=== PATIENT | female | born 1960 | race Caucasian/White ===

== ENCOUNTER 2016-12-03 13:32 | Emergency (ER) | payer OTHER ==
[2016-12-03] MEDS ORDERED: CEPHALEXIN MONOHYDRATE 500 MG CAPSULE (UD) PO ONE (14:19)
--- NOTE | 2016-12-03 14:19 | PDOC ---
History of Present Illness - General Chief Complaint: Injury Stated Complaint: LEFT ELBOW PAIN S/P FALL Time Seen by Provider: 12/03/16 13:51 - History of Present Illness Initial Comments: 12/03/16 14:32 Chief complaint: Pain left forearm History of present illness: Patient has noticed pain, redness, and swelling of the left forearm, dorsal aspect, just distal to the elbow, for several days. She fell approximately 2 weeks ago, but it does not appear that this is temporally related to the fall. Review of systems: No distal numbness tingling pain or weakness of the wrist or hand. No fever/chills, recent URI symptoms, sore throat, cough, chest pain, shortness of breath, abdominal pain, nausea, vomiting, diarrhea Past medical history: Multiple sclerosis, wheelchair-bound. Stable lately. No progression of symptoms. Social/family history reviewed and noncontributory Physical exam: Alert and oriented 3, no acute distress, cheerful and cooperative Afebrile, vital signs normal HEENT clear Neck supple without bruit mass or nodes Lungs clear CV regular without murmur rub or gallop Abdomen benign Extremities: There is an area of erythema, induration, and mild tenderness of the left forearm, extensor aspect, just distal to the elbow. There is no deformity. There is full extension and flexion of the elbow on the elbow joint does not appear to be involved. Pulses are full and symmetric. No distal sensory or motor deficits. No skin injury is apparent, i.e. no abrasion laceration or puncture distal to the involved region. Impression: Probable early cellulitis. No evidence of trauma, skin injury or skin lesions, or broken bone Plan: Rest warm soaks elevation and antibiotics. Close follow-up 24 hours. Past History - Past Medical History Allergies/Adverse Reactions: Allergies Allergy/AdvReac Type Severity Reaction Status Date / Time No Known Allergies Allergy Verified 12/03/16 14:22 Home Medications: Ambulatory Orders Ruxolitinib Phosphate [Jakafi] 10 mg PO BID 09/04/14 Tramadol HCl 50 - 100 mg PO BID PRN 09/04/14 Cephalexin Monohydrate [Keflex] 500 mg PO Q6H #30 capsule 12/03/16 Anemia: Yes (MYELOID METEPLASIA) Asthma: No Cancer: No Cardiac Disorders: No CVA: No COPD: No CHF: No Dementia: No Diabetes: No GI Disorders: No Disorders: Yes (Incontinence/urosepsis) HTN: No Hypercholesterolemia: No Liver Disease: No Suicide Attempt (Hx): No Seizures: No Thyroid Disease: No - Surgical History Abdominal Surgery: No Appendectomy: No Cardiac Surgery: No Cholecystectomy: No Lung Surgery: No Neurologic Surgery: No Orthopedic Surgery: Yes (left ankle fracture) - Immunization History Td Vaccination: Yes Immunization Up to Date: (UNKNOWN) - Psycho/Social/Smoking Cessation Hx Anxiety: No Suicidal Ideation: No Smoking Status: No Smoking History: Unknown if ever smoked Have you smoked in the past 12 months: No Number of Cigarettes Smoked Daily: 0 Hx Alcohol Use: No Drug/Substance Use Hx: No Substance Use Type: None Hx Substance Use Treatment: No *DC/Admit/Observation/Transfer Diagnosis at time of Disposition: Cellulitis of left upper limb - Discharge Dispostion Disposition: HOME Condition at time of disposition: Stable Admit: No - Prescriptions Prescriptions: Cephalexin Monohydrate [Keflex] 500 mg PO Q6H #30 capsule - Referrals Referrals: Bola Willis MD [Staff Physician] - 1 week - Patient Instructions Printed Discharge Instructions: DI for Cellulitis -- Adult Additional Instructions: Rest and elevate the arm. Use the arm is little as possible. Maintain the sling for elevation Return to ER 24 hours for recheck of the skin, to ensure response to antibiotic
[2016-12-03 14:27] VITALS: BP 119/67; PULSE 96; TEMP 987.6; BMI 22.3
[2016-12-03] MEDS ORDERED: CEPHALEXIN MONOHYDRATE 500 MG CAPSULE (UD) ONE (14:42)
== END 2016-12-03 15:03 | disposition home or self-care (01) ==
LOC: FER 13:32
DX: L03.114 Cellulitis of left upper limb (principal); D73.1 Hypersplenism
CPT/HCPCS: 99282-25

== ENCOUNTER 2017-06-04 20:04 | Emergency (ER) | payer OTHER ==
--- NOTE | 2017-06-04 20:09 | PDOC ---
History of Present Illness - General History Source: Patient Exam Limitations: No Limitations - History of Present Illness Initial Comments: 06/04/17 21:01 The patient is a 57 year old female, with a significant past medical history of myeloid metaplasia, MS, hypothyroid, AFib, urinary incontinence/urosepsis, and anxiety, who presents to the emergency department s/p noticing a bruise to her right arm earlier this afternoon. The patient reports she first noticed her bruise at approximately 17:30 today. Patient reports she typically bruises easily, but states this bruise is different because of its size and she noted a red bump in the affected area. Patient reports applying ice, and experiencing a burning sensation afterwards. She denies any pain or discharge to the area. Patient denies any history of blood clots or recent travel. Patient reports she typically has low platelet counts. She reports getting bloodwork done every 3 weeks, and occasionally bruising, but states the her last blood work was done 3 weeks ago. Patient reports she is typically able to ambulate with a walker and is not any less active than usual. She denies any chest pain, shortness of breath, diaphoresis or palpitations. She denies any fever, chills, nausea or vomiting. PAST MEDICAL HISTORY: no significant history PAST SURGICAL HISTORY: no significant history FAMILY HISTORY: no pertinent history SOCIAL HISTORY: Pt lives with family and is employed. MEDICATIONS: reviewed ALLERGIES: As per nursing notes General: No fevers or chills, no weakness, no weight loss HEENT: No change in vision. No sore throat,. No ear pain CardioVascular: No chest pain or shortness of breath Respiratory: No cough, or wheezing. Gastrointestinal: No nausea, vomiting, diarrhea or constipation, No rectal bleeding Genitourinary: No dysuria, hematuria, or frequency Musculoskeletal: No joint or muscle pain or swelling Neurologic: No headache, vertigo, dizziness or loss of consciousness Psychiatric: No depression Skin: Yes easy bruising, large bruise to right upper arm with a red bump. No rashes. Endocrine: no increased thirst or abnormal weight change Allergic: no skin or latex allergy All other systems reviewed and normal GENERAL: The patient is awake, alert, and fully oriented, in no acute distress. HEAD: Normal with no signs of trauma. EYES: Pupils equal, round and reactive to light, extraocular movements intact, sclera anicteric, conjunctiva clear. EXTREMITIES: Normal range of motion, no edema. No bony tenderness on palpation. VASCULAR: DP/PT pulses 2+ and symmetric. NEUROLOGICAL: Normal speech, normal gait. Neurovascularly intact distally. PSYCH: Normal mood, normal affect. SKIN: Multiple bruises in the bilateral upper and lower extremities. Large bruise medially in the right upper forearm, no bony tenderness on palpation, and bruise does not involve elbow joint. Warm, Dry, normal turgor, no rashes or lesions noted. <Sonam Quintero - Last Filed: 06/04/17 21:01> - General History Source: Patient Exam Limitations: No Limitations - History of Present Illness Initial Comments: 06/04/17 21:43 A portion of this note was documented by scribe services under my direction. I have reviewed the details of the note, within reason, and agree with the documentation. The case summary and management plan written by me. Assessment and plan: This is a 57-year-old female who comes in with a contusion that was spontaneous to her right upper arm. Patient has a history of mild fibrosis and has multiple bruises and contusions on both her upper and lower extremities. A Wilberto wrap was gently applied to the contusion to help contain it and given some gentle compression. Patient was told to continue to ice it and will follow-up with her primary care doctor tomorrow. <Denice Cox I - Last Filed: 06/04/17 21:45> - General Chief Complaint: Wound Stated Complaint: BRUISE TO RT ARM Time Seen by Provider: 06/04/17 20:08 Past History <Sonam Quintero - Last Filed: 06/04/17 21:01> - Past Medical History Anemia: Yes (MYELOID METEPLASIA) Asthma: No Cancer: No Cardiac Disorders: No CVA: No COPD: No CHF: No Dementia: No Diabetes: No GI Disorders: No Disorders: Yes (Incontinence/urosepsis) HTN: No Hypercholesterolemia: No Liver Disease: No Psychiatric Problems: Yes (ANXIETY) Seizures: No Thyroid Disease: No - Surgical History Abdominal Surgery: No Appendectomy: No Cardiac Surgery: No Cholecystectomy: No Lung Surgery: No Neurologic Surgery: No Orthopedic Surgery: Yes (left ankle fracture) - Immunization History Td Vaccination: Yes Immunization Up to Date: (UNKNOWN) - Suicide/Smoking/Psychosocial Hx Smoking Status: No Smoking History: Unknown if ever smoked Have you smoked in the past 12 months: No Number of Cigarettes Smoked Daily: 0 Hx Alcohol Use: No Drug/Substance Use Hx: No Substance Use Type: None Hx Substance Use Treatment: No <Denice Cox I - Last Filed: 06/04/17 21:45> - Past Medical History Allergies/Adverse Reactions: Allergies Allergy/AdvReac Type Severity Reaction Status Date / Time No Known Allergies Allergy Verified 12/03/16 14:22 Home Medications: Ambulatory Orders Ruxolitinib Phosphate [Jakafi] 10 mg PO BID 09/04/14 Tramadol HCl 50 - 100 mg PO BID PRN 09/04/14 Allopurinol 300 mg PO DAILY 12/03/16 Alprazolam 0.5 mg PO QID PRN 12/03/16 Baclofen 5 mg PO DAILY 12/03/16 Cephalexin Monohydrate [Keflex -] 500 mg PO Q6H #30 capsule 12/03/16 Levothyroxine [Synthroid -] 75 mcg PO DAILY 12/03/16 Prednisone 10 mg PO ASDIR 12/03/16 Tramadol HCl 50 mg PO Q4HWA 12/03/16 *Physical Exam - Vital Signs Last Vital Signs Temp Pulse Resp BP Pulse Ox 97.5 F L 88 20 124/78 96 06/04/17 20:08 06/04/17 20:08 06/04/17 20:08 06/04/17 20:08 06/04/17 20:08 <Sonam Quintero - Last Filed: 06/04/17 21:01> *DC/Admit/Observation/Transfer - Attestations Scribe Attestion: 06/04/17 21:02 Documentation prepared by Sonam Quintero, acting as biomedical equipment support specialist for Denice Cox MD. <Sonam Quintero - Last Filed: 06/04/17 21:01> <Denice Cox I - Last Filed: 06/04/17 21:45> Diagnosis at time of Disposition: Contusion of right upper arm - Discharge Dispostion Disposition: HOME Condition at time of disposition: Stable - Referrals Referrals: Hue Escobar [Primary Care Provider] - - Patient Instructions Additional Instructions: Wear the Wilberto wrap tonight to help it keep from bleeding any more into the area. Return to the emergency department immediately with ANY new, persistent or worsening symptoms. Continue any medications as previously prescribed by your physician. You should follow up with your primary doctor as soon as possible regarding today's emergency department visit. . Please make sure your doctor reviews the results of your emergency evaluation. Thank you for coming to the Emergency Department today for your care. It was a pleasure to see you today. Please note that your evaluation is INCOMPLETE until you follow-up with your doctor.
[2017-06-04 20:12] VITALS: BP 124/78; PULSE 88; TEMP 97.5; BMI 23.6
== END 2017-06-04 20:59 | disposition home or self-care (01) ==
LOC: FER 20:04
DX: S40.021A Contusion of right upper arm, initial encounter (principal); D73.1 Hypersplenism; I48.91 Unspecified atrial fibrillation; E03.9 Hypothyroidism, unspecified; F41.9 Anxiety disorder, unspecified
CPT/HCPCS: 99281-25

== ENCOUNTER 2020-04-30 18:10 | Emergency (ER) | payer OTHER ==
[2020-04-30] MEDS ORDERED: IBUPROFEN 400 MG TABLET (FP) PO ONE ×2 (18:30→18:35)
--- NOTE | 2020-04-30 18:36 | PDOC ---
History of Present Illness - General Chief Complaint: Pain Stated Complaint: RIGHT UPPER LEG PAIN Time Seen by Provider: 04/30/20 18:18 History Source: Patient Exam Limitations: No Limitations - History of Present Illness Initial Comments: 04/30/20 18:31 59 yo F h/o MS p/w R hip/leg pain s/p mechanical fall ~6 hours prior to presentation. States was walking and felt her legs get heavy which happens to her sometimes 2/2 MS so when she noticed it she started to slowly lower herself to the ground. Her mother was present to assist her. States it was a slow descent to the ground but her RLE was tucked beneath her LLE and patient reports it was twisted on the way down. Denies head trauma or any other injuries. Took tylenol for pain prior to arrival with insufficient relief. Did not hit her head or any other part of her body. No LOC and not on any a/c. Past History - Medical History Allergies/Adverse Reactions: Allergies Allergy/AdvReac Type Severity Reaction Status Date / Time No Known Allergies Allergy Verified 04/30/20 18:11 Home Medications: Ambulatory Orders Ruxolitinib Phosphate [Jakafi] 15 mg PO BID 09/04/14 Tramadol HCl 50 - 100 mg PO BID PRN 09/04/14 Alprazolam 0.5 mg PO QID PRN 12/03/16 Baclofen 2.5 mg PO ONCE 12/03/16 Levothyroxine [Synthroid -] 0 mcg PO DAILY 12/03/16 Prednisone 10 mg PO DAILY 12/03/16 Aspirin Coated [Ecotrin -] 81 mg PO DAILY 03/29/18 Cholecalciferol (Vitamin D3) [Vitamin D] 2,000 unit PO DAILY 03/29/18 Folic Acid 1 mg PO DAILY 03/29/18 Furosemide [Lasix -] 40 mg PO DAILY 03/29/18 Oxycodone HCl/Acetaminophen [Percocet 5-325 mg Tablet] 1 tab PO Q6H PRN #10 tablet MDD 4 tabs 04/30/20 Anemia: Yes (MYELOID METEPLASIA) Asthma: No Cancer: No Cardiac Disorders: Yes (A-FIB) CVA: No COPD: No CHF: No Dementia: No Diabetes: No GI Disorders: No Disorders: Yes (Incontinence/urosepsis) HTN: No Hypercholesterolemia: Yes Liver Disease: No Psychiatric Problems: Yes (ANXIETY) Seizures: No Thyroid Disease: Yes - Surgical History Abdominal Surgery: No Appendectomy: No Cardiac Surgery: No Cholecystectomy: No Lung Surgery: No Neurologic Surgery: No Orthopedic Surgery: Yes (left ankle fracture) - Immunization History Td Vaccination: Yes Immunization Up to Date: (UNKNOWN) - Psycho-Social/Smoking History Smoking Status: No Smoking History: Never smoked Have you smoked in the past 12 months: No Number of Cigarettes Smoked Daily: 0 Information on smoking cessation initiated: No - Substance Abuse Hx (Audit-C & DAST Scrn) How often the patient has a drink containing alcohol: Never Score: In Men: 4 or > Positive; In Women: 3 or > Positive: 0 Screen Result (Pos requires Nsg. Audit-10AR): Negative In the last yr the pt used illegal drug/Rx for NonMed reason: No Score: Yes response is considered Positive: 0 Screen Result (Positive result requires Nsg. DAST-10): Negative Review of Systems - Review of Systems Able to Perform ROS?: Yes Comments:: 04/30/20 18:36 GENERAL/CONSTITUTIONAL: No fever or chills. No weakness. HEAD, EYES, EARS, NOSE AND THROAT: No change in vision. No ear pain or discharge. No sore throat. CARDIOVASCULAR: No chest pain or shortness of breath. RESPIRATORY: No cough, wheezing, or hemoptysis. GASTROINTESTINAL: No nausea, vomiting, diarrhea or constipation. GENITOURINARY: No dysuria, frequency, or change in urination. MUSCULOSKELETAL: as per HPI SKIN: No rash. NEUROLOGIC: No headache, vertigo, loss of consciousness, or change in strength/sensation. ENDOCRINE: No increased thirst. No abnormal weight change. HEMATOLOGIC/LYMPHATIC: No anemia, easy bleeding, or history of blood clots. ALLERGIC/IMMUNOLOGIC: No hives or skin allergy. *Physical Exam - Vital Signs Last Vital Signs Temp Pulse Resp BP Pulse Ox 98.3 F 105 H 20 123/78 96 04/30/20 18:10 04/30/20 18:10 04/30/20 18:10 04/30/20 18:10 04/30/20 18:10 - Physical Exam 04/30/20 18:37 GENERAL: Well appearing, in no acute distress HEENT: NCAT, no racoon eyes, no santana sign, MMM, EOMI NECK: Normal ROM, supple LUNGS: CTAB. Good air entry. No wheezes, No Rhonchi and no crackles HEART: RRR, + s1 s2 ABDOMEN: Soft, nontender, normoactive bowel sounds. No guarding, no rebound. No masses BACK: no midline or paraspinal tenderness. No CVA tenderness. EXTREMITIES: Warm and well perfused. 2+ LE edema (pt reports this is baseline). +ttp R hip and lateral thigh, no gross deformities, no knee ttp, negative valgus/varus/anterior/posterior drawer sign, sensation intact to light touch, flexion/extension intact at knee, unable to flex/extend at hip (pt reports this is baseline) NEUROLOGICAL: Aox3, Speech fluent, face symmetric, tongue/uvula midline. Sensation grossly intact to light touch. No focal deficits. SKIN: Warm, dry, no lacerations or abrasions. ED Treatment Course - RADIOLOGY Radiology Studies Ordered: Category Date Time Status FEMUR-RIGHT [RAD] Stat Radiology 04/30/20 18:30 Ordered KNEE 4 POS-RIGHT [RAD] Stat Radiology 04/30/20 18:30 Ordered PELVIS [RAD] Stat Radiology 04/30/20 18:30 Ordered Medical Decision Making - Medical Decision Making 04/30/20 18:40 59 yo F h/o MS p/w low impact mechanical fall, likely contusion, lower suspicion for fx however will get xray to r/o. Plan: -xray pelvis -xray R femur/knee -pain control as needed -reassess This clinical encounter is taking place during a federal and state health care emergency attributable to the novel Zuniga Virus pandemic. The [employer] of the Department of Health and Human Services has declared, pursuant to the Public Health Service Act 319F-3 (42 U.S.C. 247d-6d), that a covered persons activities related to medical countermeasures against COVID-19 will be immune from liability under Federal and State law. Pt. signed out to incoming night attending Discharge - Discharge Information Problems reviewed: Yes Clinical Impression/Diagnosis: Subconjunctival hemorrhage of left eye, Myelofibrosis Contusion, hip Qualifiers: Encounter type: initial encounter Laterality: right Qualified Code(s): S70.01XA - Contusion of right hip, initial encounter Condition: Stable Disposition: HOME - Additional Discharge Information Prescriptions: Oxycodone HCl/Acetaminophen [Percocet 5-325 mg Tablet] 1 tab PO Q6H PRN #10 tablet MDD 4 tabs PRN Reason: Severe Pain - Follow up/Referral Referrals: Silvestre Jj MD [Staff Physician] - - Patient Discharge Instructions Patient Printed Discharge Instructions: DI for Contusion, DI for Subconjunctival Hemorrhage Additional Instructions: Acetaminophen as needed for mild to moderate pain apply mild pressure to left eye if bleeding occurs followup with eye doctor(Dr Jj) if you have persistent pain or any change in vision contact your physician about today's ER visit and followup as arranged - Post Discharge Activity
[2020-04-30 18:37] VITALS: BP 123/78; TEMP 98.3; BMI 22.8
--- OUTSIDE RECORDS SUMMARY | 2020-04-30 18:42 | XMS ---
:1960 Author Organization [facility] Care Team Providers Name Role Phone CLIFFORDKODY Unavailable Unavailable LEXX HENRY Unavailable Unavailable JULIO, TEJINDERPAL Unavailable Unavailable Avtar Farrell MD Unavailable Unavailable Avtar Farrell MD Unavailable Unavailable Avtar Farrell MD Unavailable Unavailable Avtar Farrell MD Unavailable Unavailable Avtar Farrell MD Unavailable Unavailable Avtar Farrell MD Unavailable Unavailable Avtar Farrell MD Unavailable Unavailable Avtar Farrell MD Unavailable Unavailable Avtar Farrell MD Unavailable Unavailable Avtar Farrell MD Unavailable Unavailable Avtar Farrell MD Unavailable Unavailable Avtar Farrell MD Unavailable Unavailable Shabbir Castorena MD Unavailable Unavailable Shabbir Castorena MD Unavailable Unavailable Shabbir Castorena MD Unavailable Unavailable Shabbir Castorena MD Unavailable Unavailable Shabbir Castorena MD Unavailable Unavailable XENIA TEIXEIRA Unavailable Unavailable VOODOO, HUMAYUN Unavailable Unavailable ISABELA CONRAD MD Unavailable Unavailable LEFKOVITZ, SAHIL Unavailable Unavailable SALINA, ARIF Unavailable Unavailable JAIDA SINCLAIR, [id number] Unavailable Unavailable EMERGENCY SERVICE, X Unavailable Unavailable ADEBAYO SHELLEY Unavailable Unavailable Kareen (Julio)Juventino MD Unavailable Unavailable Kareen (Julio), Delvin RG Unavailable Unavailable Kareen (Julio), Delvin RG Unavailable Unavailable Kareen (Julio), Delvin RG Unavailable Unavailable Kareen (Julio), Delvin RG Unavailable Unavailable Kareen (Julio), Delvin RG Unavailable Unavailable Kareen (Julio), Delvin RG Unavailable Unavailable Kareen (Julio), Delvin RG Unavailable Unavailable Kareen (Julio), Delvin RG Unavailable Unavailable Kareen (Julio), M Unavailable Unavailable Kareen (Julio), Delvin RG Unavailable Unavailable Kareen (Julio), Delvin RG Unavailable Unavailable Kareen (uJlio), Delvin RG Unavailable Unavailable Kareen (Julio)Delvin MD Unavailable Unavailable Kareen (Julio)Delvin MD Unavailable Unavailable EMILY BHATIA Unavailable Unavailable SANAMARYANN SINGH Unavailable Unavailable Re-disclosure Warning The records that you are about to access may contain information from federally- assisted alcohol or drug abuse programs. If such information is present, then the following federally mandated warning applies: This information has been disclosed to you from records protected by federal confidentiality rules (42 CFR part 2). The federal rules prohibit you from making any further disclosure of this information unless further disclosure is expressly permitted by the written consent of the person to whom it pertains or as otherwise permitted by 42 CFR part 2. A general authorization for the release of medical or other information is NOT sufficient for this purpose. The Federal rules restrict any use of the information to criminally investigate or prosecute any alcohol or drug abuse patient.The records that you are about to access may contain highly sensitive health information, the redisclosure of which is protected by Article 27-F of the [facility] Public Health law. If you continue you may haveaccess to information: Regarding HIV / AIDS; Provided by facilities licensed or operated by the [facility] Office of Mental Health; or Provided by the [facility] Office for People With Developmental Disabilities. If such information is present, then the following [facility] mandated warning applies: This information has been disclosed to you from confidential records which are protected by state law. State law prohibits you from making any further disclosure of this information without the specific written consent of the person to whom it pertains, or as otherwise permitted by law. Any unauthorized further disclosure in violation of state law may result in a fine or halfway sentence or both. A general authorization for the release of medical or other information is NOT sufficient authorization for further disclosure. Allergies and Adverse Reactions Type Description Substance Reaction Status Data Source(s ) Drug allergy No Known Allergies No Known [facility] Drug allergy No Known Drug No Known Drug [facility] Allergies [facility] Drug allergy PCN PCN [facility] Food allergy No Known Food No Known Food [facility] Allergies [facility] Encounters Encounter Providers Location Date Indications Data Source(s ) Emergency Attender: Shabbir 04/17/2020 TRANSFUSION [facility] MDAttender: 07:42:00 PM [facility], EDT Corpor ation XAdmitter: Shabbir Castorena MD TRANSFUSION Inpatient Attender: DAPHNEY, 03/05/2020 DIFFICULTY [facility] STEPHENAttender: JULIO, 08:02:00 PM EDT WALKING ,LEUKOC [facility] TEJINDERPALAttender: - 03/14/2020 Ca JUAN RogreICAdmitter: CARL, 06:15:00 PM EDT Corporation ERICReferrer: CARL LEXX DIFFICULTY WALKING,LEUKOC Patient admitted. Emergency Attender: CARL, 03/05/2020 BODY WEAKNESS [facility] ERICAttender: 04:48:00 PM EDT [facility] EMERGENCY SERVICE, Corpor ation XAdmitter: LEXX HENRY BODY WEAKNESS Outpatient Attender: Juventino Mathur 11/09/2019 06:00:[address] (Julio) MDAdmitter: EDT [facility] Carine VELAZCOVIReferrer: C orporation Juventino Mathur MD (Singh) G35 Outpatient Attender: VOODOO, 10/18/2019 10:44:00 [address]mitter: VOODOO, JARETH [facility] HUMAYUNReferrer: Juventino Mathur MD (Singh) G35 Outpatient Attender: [id number] 06/08/2019 11:33:00 D73.1 [facility] JAIDA SINCLAIR AM [facility].Admitter: [id number] [facility] JAIDA SINCLAIRReferrer: [id number] JAIDA SINCLAIR D73.1 Attender: Avtar Banks 04/16/2019 12:00:00 MARLENY (Heri Reynaga MD AM EDT [facility] ) Inpatient Attender: JANNETTE, 04/15/2019 11:58:00 LOW BACK NOE N [facility] RONALDAttender: PM EDT Health Ca [facility] [place] ARIFAttender: VU HENRYdmitter: LEXX HENRY LOW BACK PAIN Patient admitted. Emergency 04/15/2019 11:43:00 AM EDT LOWER BALTAZAR K PAIN [facility] Corporati on LOWER BACK PAIN INPATIENT Attender: Avtar Marshall 04/15/2019 MARLENY ( Heri Reynaga MD [facility] 12:00:00 AM EDT C [facility] - 04/16/2019 Physicians L STEVEN) 12:00:00 AM EDT Outpatient Attender: 11/23/2018 I27.2 [place] KVNGSHAYLA, 06:00:00 AM EDT I31.3 [facility] Bossman GATESAttender: Care Josselin oration MARYANN HOODAdmitter: CLIFFORD ANJALICANELOKEHINDEReferrer: CLIFFORD KODY I27.2 I31.3 Outpatient Attender: PUNEET, 11/09/2018 06:00:00 S72.111 D [facility] XENIAAdmitter: AM EDT Health Car e TEJ VELAZCOeferrer: C orporation XENIA TEIXEIRA S72.111D Inpatient Attender: Juventino 09/10/2018 05:13:00 MS EXCERBATI ON [facility] PM EST - 09/17/2018 Health Care MDAdmitter: HOUSTON, 04:43:00 PM EST Co rporation ISABELA GR MS EXCERBATION Medications Medication Brand Start Product Dose Route Administrative Pharmacy [facility] Indications Reaction Description Data Name Date Form Instructions Instructions Source(s) JAKQUINN [facility] te (Free Text 2017 [facility] Medication) 12:00: Health [T (Free 00 AM Care Text EST Corporatio Medication) n 1 Tablet Oral 2 TIMES A DAY Hydroxyurea [id number] W estcheste [500 mg 775 2017 [facility] Capsule]: 1 12:00: Health Tablet Oral 00 AM Care DAILY IN EST Corporatio MORNING n JAKAFI [facility] te (Free Text 2017 ed [facility] Medication) 12:00: Health [T (Free 00 AM Care Text EST Corporatio Medication) n 1 Tablet Oral 2 TIMES A DAY Hydroxyurea 243636 complet W estcheste [500 mg 775 2017 [facility] Capsule]: 1 12:00: Health Tablet Oral 00 AM Care DAILY IN EST Corporatio MORNING n JAKAFI [facility] te (Free Text 2017 ed [facility] Medication) 12:00: Health [T (Free 00 AM Care Text EST Corporatio Medication) n 1 Tablet Oral 2 TIMES A DAY hydroxyurea Hydrox 11/07/ complet W estcheste 500 MG Oral yurea 2017 ed r Count y Capsule [500 12:00: Health Hydroxyurea mg 00 AM Care [500 mg Capsul EST Corporatio Capsule]: 1 e]: 1 n Tablet Oral Tablet DAILY IN Oral MORNING DAILY IN JAMSHID Hubbard Furosemide Furose 06/23/ complet We stcheste 40 MG Oral mide 2017 [facility] Tablet [40 mg 12:00: Health Furosemide Tablet 00 AM Care [40 mg ]: 1 EST Corporatio Tablet]: 1 Tablet n Tablet Oral Oral DAILY IN DAILY MORNING IN JAMSHID Hubbard JAKAFI 06/23/ complet [place] [facility] (Free Text [address] [place] [address] Medication) 12:00: Health [T (Free 00 AM Care Text EST Corporatio Medication) n 1 Tablet Oral 2 TIMES A DAY Citric Acid Sodium complet Erlin tcheste 66.8 MG/ML Citrat ed r Count y / sodium e-Citr Health citrate 100 ic Care MG/ML Oral Acid Corporati o Solution [334 n Sodium mg-500 Citrate-Cit mg/5 ashli Acid mL [334 mg-500 Soluti mg/5 mL on]: 1 Solution]: Dose 1 Dose Oral Oral 2 2 TIMES A TIMES DAY A DAY TRANEXAMIC complet [place] de[place]re ACID (Free ed [facility] Text Health Medication) Care [Tablet]: Corporatio 1300 MG n Oral 9A-3P-9P Prednisone Predni complet [place] 5 MG Oral sone [facility] Tablet [5 mg Health Prednisone Tablet Care [5 mg ]: 15 Corporatio Tablet]: 15 MG n MG Oral Oral Q10AM Q10AM Acetaminoph Acetam complet Erlin tcheste en 325 MG inophe [facility] Oral Tablet n [325 Health Acetaminoph mg Care en [325 mg Tablet Corpora lonnie Tablet]: ]: 650 n 650 MG Oral MG Q6H Oral Q6H Baclofen 10 baclof 999 oral complet baclofen [place] MG Oral en MG [facility] Tablet Health [Balgifen] Care baclofen Corporatio n Prednisone Predni complet [place] 10 MG Oral sone [facility] Tablet [10 mg Health Prednisone Tablet Care [10 mg ]: 10 Corporatio Tablet]: 10 Tablet n Tablet Oral Oral DAILY IN DAILY MORNING IN JAMSHID Hubbard DOK [id number] complet [place] (Docusate 009 [facility] Sodium) Health [100 mg Care Capsule]: Corporatio 100 MG Oral n W/MEALS Folic Acid 977076 complet [place] [1 mg 366 ed [facility] Tablet]: 1 Health Tablet Oral Care DAILY IN Corporatio MORNING n Levothyroxi Synthr complet Erlin tcheste ne Sodium oid ed [facility] 0.112 MG (Levot Health Oral Tablet hyroxi Care Synthroid ne) Corporatio (Levothyrox [112 n ine) [112 mcg mcg Tablet Tablet]: ]: 112 112 MCG MCG Oral Q6AM Oral Q6AM Cholecalcif Cholec complet Erlin tcheste tony 1000 alcife ed [facility] UNT Oral rol Health Tablet (Vitam Care Cholecalcif in D3) Corpor atio tony [1,000 n (Vitamin unit D3) [1,000 Tablet unit ]: 2 Tablet]: 2 Tablet Tablet Oral Oral DAILY IN DAILY MORNING IN MORNIN G Acetaminoph Percoc 999 oral complet Percocet [place] en 325 MG / et MG ed [facility] Oxycodone Health Hydrochlori Care de 5 MG Corporatio Oral Tablet n [Percocet] Rosuvastati rosuva 999 oral complet rosuvast atin [place] n calcium 5 statin MG ed [facility] ty MG Oral Health Tablet Care [Crestor] Corporatio rosuvastati n n Fluticasone 133109 complet [place] [50 368 ed [facility] mcg/actuati Health on [place]]: Care 50 MCG Each Corporat io Nostril n 10A-10P Synthroid 371384 complet [place] [facility] (Levothyrox 652 ed [facility] ine) [112 Health mcg Care Tablet]: Corporatio 112 MCG n Oral Q6AM Lorazepam 1 loraze 999 oral complet lorazepa m [place] MG Oral amrita MG ed [facility] Tablet Health [Ativan] Care lorazepam Corporatio n Fluticasone 567793 complet [place] [50 368 ed [facility] mcg/actuati Health on [place]]: Care 50 MCG Each Corporat io Nostril n 10A-10P Levothyroxi levoth 999 oral complet levothyr oxin [place] ne Sodium yroxin MG ed e [facility] 0.075 MG e Health Oral Care Capsule Corporatio [Tirosint] n levothyroxi ne Lasix 817707 complet [facility] e (Furosemide 208 ed [facility] ) [20 mg Health Tablet]: 1 Care Tablet Oral Corporat io DAILY n Lidocaine 918680 complet [place] [facility] [5 % 256 ed [facility] PATCH]: 1 Health Application Care Affected Corporatio Area Q10AM n Crestor 307349 complet [place]mas (Rosuvastat 944 ed [facility] in) [5 mg Health Tablet]: 1 Care Tablet Oral Corporat io DAILY IN n EVENING Prednisone Predni complet [place] 50 MG Oral sone [facility] Tablet [50 mg Health Prednisone Tablet Care [50 mg ]: 50 Corporatio Tablet]: 50 MG n MG Oral Oral DAILY IN DAILY MORNING IN MORNIN G Docusate DOK complet [place] Sodium 100 (Docus ed r Count y MG Oral ate Health Capsule DOK Sodium Care (Docusate ) [100 Corporat io Sodium) mg n [100 mg Capsul Capsule]: e]: 100 MG Oral 100 MG W/MEALS Oral W/MEAL S Sodium Saline 999 nasal complet Saline Nasal [place] Chloride Nasal MG ed Mist [facility] 0.111 Mist Health MEQ/ML Care Nasal [place] Corporat io Saline n Nasal Mist ruxolitinib Jakafi 999 oral complet Jakafi W estche[place] 10 MG Oral MG [facility] Tablet Health [Jakafi] Care Corporatio n Cholecalcif Vitami complet [place] tony 2000 n D-3 ed [facility] UNT Oral ([place] Health Capsule calcif Care Vitamin D-3 tony Corporat io (Cholecalci (Vitam n ferol in (Vitamin D3)) D3)) [2,000 [2,000 unit unit Capsule]: 1 Capsul Capsule e]: 1 Oral DAILY Capsul e Oral DAILY Baclofen 10 baclof 999 oral complet baclofen [place] MG Oral en MG [facility] Tablet Health [Balgifen] Care baclofen Corporatio n Alprazolam alpraz 999 oral complet alprazola m [place] 0.5 MG Oral olam MG [facility] Tablet [facility] [Xanax] Care alprazolam Corporati o n Children's 267616 [facility] Asp[facility] 380 [facility] (Aspirin) Health [81 mg Care Tablet]: 81 Corporat io MG Oral n Q6AM Levothyroxi Synthr complet [place]lin t[place] ne Sodium oid [facility] 0.112 MG (Levot Health Oral Tablet hyroxi Care Synthroid ne) Corporatio (Levothyrox [112 n ine) [112 mcg mcg Tablet Tablet]: ]: 112 112 MCG MCG Oral Q6AM Oral Q6AM Furosemide Lasix complet [place] 20 MG Oral (Furos ed r Count y Tablet emide) Health Lasix [20 mg Care (Furosemide Tablet Corpor atio ) [20 mg ]: 1 n Tablet]: 1 Tablet Tablet Oral Oral DAILY DAILY Rosuvastati Cresto complet [place] n calcium 5 r ed r County MG Oral (Rosuv Health Tablet astati Care Crestor n) [5 Corporatio (Rosuvastat mg n in) [5 mg Tablet Tablet]: 1 ]: 1 Tablet Oral Tablet DAILY IN Oral EVENING DAILY IN EVENIN G pantoprazol Pantop complet [place] e 40 MG razole ed [facility] Delayed [40 mg Health Release TABLET Care Oral Tablet DR]: Corporat io Pantoprazol 40 MG n e [[address]]: Q10AM 40 MG Oral Q10AM RUXOLITINIB complet [facility] heste PHOSPHATE(C ed r County HEMO) 20 Health (Free Text Care Medication) Corporat io [5 MG n Tablet]: 20 MG Oral Q12H Pantoprazol 393376 complet [facility] tcheste e [40 mg 462 ed [facility] TABLET DR]: Health 40 MG Oral Care Q10AM Corporatio n Alprazolam Alpraz complet [facility] MG Oral olam ed [facility] Tablet [0.5 Health Alprazolam mg Care [0.5 mg Tablet Corporatio Tablet]: ]: 0.5 n 0.5 MG Oral MG QHSPRN PRN Oral ANXIETY QHSPRN PRN ANXIET Y Lasix 812961 complet [facility] e (Furosemide 208 ed r [facility] ) [20 mg Health Tablet]: 1 Care Tablet Oral Corporat io DAILY n Baclofen 10 Baclof complet [place] t[place] MG Oral en [10 ed r [facility] Tablet mg Health Baclofen Tablet Care [10 mg ]: 10 Corporatio Tablet]: 10 MG n MG Oral Q8H Oral Q8H Prednisone 839517 complet [place] [5 mg 753 ed [facility] Tablet]: 3 Health Tablet Oral Care DAILY IN Corporatio MORNING n Cefadroxil 570571 complet [place] [500 mg 262 ed [facility] Capsule]: 2 Health Capsule Care Oral 2 Corporatio TIMES A DAY n REMOVE complet [place] PATCH (Free ed [facility] Text Health Medication) Care [1 PATCH Corporatio PATCH]: n Affected Area [id number] t: DOSE: 1 PATCH Sodium 644315 complet [place] Citrate-Cit 912 ed [facility] ashli Acid Health [334 mg-500 Care mg/5 mL Corporatio Solution]: n 1 Dose Oral 2 TIMES A DAY Prednisone 025878 complet [place] [5 mg 753 ed [facility] Tablet]: 3 Health Tablet Oral Care DAILY IN Corporatio MORNING n Allopurinol allopu 999 oral complet allopuri nol [place] 300 MG Oral rinol MG ed r Count y Tablet Health [Xanthomax] Care allopurinol Corporat io n CRESTOR complet [place] e (Free Text ed [facility] Medication) Health [5 MG Care Tablet]: 5 Corporati o MG Oral n Q10PM Cholecalcif Cholec complet [place] t[place]ste tony 1000 alcife ed [facility] UNT Oral rol Health Tablet (Vitam Care Cholecalcif in D3) Corpor atio tony [1,000 n (Vitamin unit D3) [1,000 Tablet unit ]: 2 Tablet]: 2 Tablet Tablet Oral Oral DAILY IN DAILY MORNING IN MORNIN G Allopurinol Allopu complet [place] t[place] 300 MG Oral rinol ed r Count y Tablet [300 Health Allopurinol mg Care [300 mg Tablet Corporatio Tablet]: 1 ]: 1 n Tablet Oral Tablet DAILY Oral DAILY Folic Acid 665475 complet [place] [1 mg 366 ed [facility] Tablet]: 1 Health Tablet Oral Care DAILY IN Corporatio MORNING n Rosuvastati rosuva 999 oral complet rosuvast atin [place] n calcium 5 statin MG ed r Coun ty MG Oral Health Tablet Care [Crestor] Corporatio rosuvastati n n Pantoprazol 097647 complet [place] e [40 mg 462 ed [facility] TABLET DR]: Health 40 MG Oral Care Q10AM Corporatio n Acetaminoph Percoc 999 oral complet Percocet [place] en 325 MG / et MG ed [facility] Oxycodone Health Hydrochlori Care de 5 MG Corporatio Oral Tablet n [Percocet] Aspirin 81 Childr complet [place] MG Chewable en's ed [facility] Tablet Aspiri Health Children's n Care Aspirin (Aspir Corporatio (Aspirin) in) n [81 mg [81 mg Tablet Tablet Chew]: 81 Chew]: MG Oral 81 MG Q10AM Oral Q10AM Heparin 097794 complet [place] tomas (Porcine) 549 [facility] [5,000 Health unit/mL Care Vial]: 5000 Corporat io Unit n Subcutaneou s Q8H PREDNISONE complet [place] de[place]re 15 MG (Free [facility] Text Health Medication) Care Oral Q10AM Corporati o n Alprazolam alpraz 999 oral complet alprazola m [place] 0.5 MG Oral olam MG [facility] Tablet Health [Xanax] Care alprazolam Corporati o n Levothyroxi Synthr complet [place] ne Sodium oid [facility] 0.112 MG (Levot Health Oral Tablet hyroxi Care Synthroid ne) Corporatio (Levothyrox [112 n ine) [112 mcg mcg Tablet Tablet]: ]: 112 112 MCG MCG Oral Q6AM Oral Q6AM Levothyroxi levoth 999 oral complet levothyr oxin [place] ne Sodium yroxin MG ed [facility] 0.075 MG e Health Oral Care Capsule Corporatio [Tirosint] n levothyroxi ne Synthroid 349420 complet [facility] heste (Levothyrox 652 [facility] ine) [112 Health mcg Care Tablet]: Corporatio 112 MCG n Oral Q6AM Cholecalcif 784188 complet [place] tony 465 [facility] (Vitamin Health D3) [1,000 Care unit Corporatio Tablet]: 2 n Tablet Oral DAILY IN MORNING Lorazepam 1 loraze 999 oral complet lorazepa m [place] MG Oral amrita MG [facility] Tablet Health [Ativan] Care lorazepam Corporatio n Cholecalcif 901807 complet [place] tony 465 [facility] (Vitamin Health D3) [1,000 Care unit Corporatio Tablet]: 2 n Tablet Oral DAILY IN MORNING Allopurinol 076607 complet [place] [300 mg 536 [facility] Tablet]: 1 Health Tablet Oral Care DAILY Corporatio n Children's 817901 complet [place] Aspirin 380 [facility] (Aspirin) Health [81 mg Care Tablet]: 81 Corporat io MG Oral n Q6AM Folic Acid Folic complet [place] heste 1 MG Oral Acid [facility] Tablet [1 mg Health Folic Acid Tablet Care [1 mg ]: 1 Corporatio Tablet]: 1 Tablet n Tablet Oral Oral DAILY IN DAILY MORNING IN JAMSHID Hubbard Allopurinol Allopu complet [place] t[place] 300 MG Oral rinol ed Count y Tablet [300 Health Allopurinol mg Care [300 mg Tablet Corporatio Tablet]: ]: 300 n 300 MG Oral MG Q10AM Oral Q10AM Allopurinol 478077 complet [place] [300 mg 536 [facility] Tablet]: 1 Health Tablet Oral Care DAILY Corporatio n Folic Acid Folic complet [place] [facility] 1 MG Oral Acid [facility] Tablet [1 mg Health Folic Acid Tablet Care [1 mg ]: 1 Corporatio Tablet]: 1 Tablet n Tablet Oral Oral DAILY IN DAILY MORNING IN JAMSHID Hubbard Macrobid 820675 complet [place] (Nitrofuran 598 [facility] toin Health (Macrocryst Care 25%)) [100 Corporati o mg n Capsule]: 1 Capsule Oral DAILY IN MORNING Rosuvastati Rosuva complet [place] n calcium 5 statin ed Coun ty MG Oral [5 mg Health Tablet Tablet Care Rosuvastati ]: 5 Corporat io n [5 mg MG n Tablet]: 5 Oral MG Oral Q10PM Q10PM Fluticasone 721683 complet [place] [50 368 [facility] mcg/actuati Health on [place]]: Care 50 MCG Each Corporat io Nostril n 10A-10P Fluticasone 034841 complet [place] [50 368 [facility] mcg/actuati Health on [place]]: Care 50 MCG Each Corporat io Nostril n 10A-10P Discharge complet [place] tomas Medications ed [facility] are Health unavailable Care . Corporatio n Crestor 973689 complet [place] tomas (Rosuvastat 944 ed [facility] in) [5 mg Health Tablet]: 1 Care Tablet Oral Corporat io DAILY IN n EVENING Levofloxaci Levaqu complet [place] t[place] n 750 MG in [facility] Oral Tablet (Levof Health Levaquin loxaci Care (Levofloxac n) Corporat io in) [750 mg [750 n Tablet]: 1 mg Tablet Oral Tablet DAILY ]: 1 Tablet Oral DAILY NITROFURANT Macrob complet [place] t[place] OIN, id [facility] MACROCRYSTA (Nitro Health LS 25 MG / furant Care Nitrofurant oin Corporat io oin, (Macro n Monohydrate cryst2 75 MG Oral 5%)) Capsule [100 Macrobid mg (Nitrofuran Capsul toin e]: 1 (Macrocryst Capsul 25%)) [100 e Oral mg DAILY Capsule]: 1 IN Capsule MORNIN Oral DAILY G IN MORNING Aspirin 81 Childr complet [place] MG Chewable en's ed r [facility] Tablet Aspiri Health Children's n Care Aspirin (Aspir Corporatio (Aspirin) in) n [81 mg [81 mg Tablet]: 81 Tablet MG Oral ]: 81 Q6AM MG Oral Q6AM Citric Acid Sodium complet [place] tcheste 66.8 MG/ML Citrat ed r Count y / sodium e-Citr Health citrate 100 ic Care MG/ML Oral Acid Corporati o Solution [334 n Sodium mg-500 Citrate-Cit mg/5 ashli Acid mL [334 mg-500 Soluti mg/5 mL on]: 1 Solution]: Dose 1 Dose Oral Oral 2 2 TIMES A TIMES DAY A DAY Senna Lax 088529 complet [place] [facility] (Sennosides 964 ed [facility] ) [8.6 mg Health Tablet]: Care 17.2 MG Corporatio Oral Q10PM n Aspirin 81 Baby 999 oral complet Baby Aspiri n [place] MG Chewable Aspiri MG ed r Coun ty Tablet Baby n Health Aspirin Care Corporatio n Aspirin 81 Baby 999 oral complet Baby Aspiri n [place] MG Chewable Aspiri MG ed r Coun ty Tablet Baby n Health Aspirin Care Corporatio n Allopurinol allopu 999 oral complet allopuri nol [place] 300 MG Oral rinol MG ed r Count y Tablet Health [Xanthomax] Care allopurinol Corporat io n ruxolitinib Jakafi 999 oral complet Jakafi W [place] 10 MG Oral MG ed r [facility] Tablet Health [Jakafi] Care Corporatio n pantoprazol Pantop complet Erlin tcheste e 40 MG razole ed [facility] Delayed [40 mg Health Release TABLET Care Oral Tablet DR]: Corporat io Pantoprazol 40 MG n e [[address]]: Q10AM 40 MG Oral Q10AM Sodium Saline 999 nasal complet Saline Nasal [place] Chloride Nasal MG ed Mist [facility] 0.111 Mist Health MEQ/ML Care Nasal [place] Corporat io Saline n Nasal Mist Sodium 940320 complet [facility] te Citrate-Cit 912 ed r [facility] ashli Acid Health [334 mg-500 Care mg/5 mL Corporatio Solution]: n 1 Dose Oral 2 TIMES A DAY DOK 210134 complet [facility] (Docusate 009 ed r [facility] Sodium) Health [100 mg Care Capsule]: Corporatio 100 MG Oral n W/MEALS Cefadroxil 198306 complet [place] [500 mg 262 ed r [facility] Capsule]: 2 Health Capsule Care Oral 2 Corporatio TIMES A DAY n Aspirin 81 Childr complet [place] MG Chewable en's ed r [facility] Tablet Aspiri [facility] Children[facility] n Care Aspirin (Aspir Corporatio (Aspirin) in) n [81 mg [81 mg Tablet]: 81 Tablet MG Oral ]: 81 Q6AM MG Oral Q6AM Insurance Providers Payer name Policy type / Policy ID Covered Covered constitution party's Policy Plan Coverage type constitution party ID relationship to Mata Information mata UNK [id number] UNK UNK Datasnap[employer]ioK Datasnap.ioK [id number] UNK UNK UNK [employer] [id number] self [id number] HEALTHCARE insurance Problems, Conditions, and Diagnoses Code Display Name Description Problem Type Effective Data Dates Source(s) Z20.828 Contact with and CONTACT W AND Diagnosis 04/17/2020 [facility] bush (suspected) exposure EXPOSURE TO OTH VIRAL 07:4 2:00 PM [facility] to other viral COMMUNICABLE DISEASES EDT Care communicable diseases Cor poration G35 Multiple sclerosis MULTIPLE SCLEROSIS Diagnosis 0 [place] [facility] [place] D75.81 Myelofibrosis MYELOFIBROSIS Diagnosis 04/17/[address] [facility]:42:00 [facility] [place] E03.9 Hypothyroidism, HYPOTHYROIDISM, Diagnosis 04/17/2020 [place] unspecified UNSPECIFIED 07:42:00 PM [facility] EDT Care [place] D50.9 Iron deficiency IRON DEFICIENCY Diagnosis 04/17/2020 [place] anemia, unspecified ANEMIA, UNSPECIFIED 07:42:0 [facility] [place] D64.9 Anemia, unspecified ANEMIA, UNSPECIFIED Diagnosis 020 [place] 07:42:00 [facility] [place] Y92.89 Other specified OTH PLACES THE Diagnosis 03/14/2020 [facility] the [facility] PLACE OF OCCURRENCE 06:15:0 0 PM [facility] of occurrence of the OF THE EXTERNAL CAUSE EDT Care external cause Corporatio n Z87.891 Personal history of PERSONAL HISTORY OF Diagnosis [place] nicotine dependence NICOTINE DEPENDENCE 06:15:0 0 PM [facility] EDT Care [place] Z87.440 Personal history of PERSONAL HISTORY OF Diagnosis [place] urinary (tract) URINARY (TRACT) 06:15:00 PM [facility] infections INFECTIONS EDT Care [place] Z79.52 custodial (current) CUSTODIAL (CURRENT) Diagnosis [place] use of systemic USE OF SYSTEMIC 06:15:00 PM [facility] steroids STEROIDS EDT Care [place] X58.XXX Exposure to other EXPOSURE TO OTHER Diagnosis 03/14/2020 [place] A specified factors, SPECIFIED FACTORS, 06:15:00 PM [facility] initial encounter INITIAL ENCOUNTER EDT Care [place] L71.9 Rosacea, unspecified ROSACEA, UNSPECIFIED Diagnosis 03/14 [place] 06:15:00 PM [facility] EDT Care Corporation R60.9 Edema, unspecified EDEMA, UNSPECIFIED Diagnosis 0 [place] 06:15:00 PM [facility] EDT Care Corporation J34.89 Other specified OTHER SPECIFIED Diagnosis 03/14/2020 [place] disorders of nose and DISORDERS OF NOSE AND 06: 15:00 PM [facility] nasal sinuses NASAL SINUSES EDT Care Corporation K59.00 Constipation, CONSTIPATION, Diagnosis 03/14/[address] [facility] unspecified UNSPECIFIED 06:15:00 PM [facility] EDT Care Corporation H91.90 Unspecified hearing UNSPECIFIED HEARING Diagnosis [place] loss, unspecified ear LOSS, UNSPECIFIED EAR 06: 15:00 PM [facility] EDT Care Corporation J98.4 Other disorders of OTHER DISORDERS OF Diagnosis 0 [place] lung LUNG 06:15:00 PM [facility] EDT Care [place] T38.0X5 Adverse effect of ADVERSE EFFECT OF Diagnosis 03/14/2020 [place] A glucocorticoids and GLUCOCORT/SYNTH 06:15:00 PM [facility] synthetic analogues, ANALOG, INIT EDT Ca re initial encounter Corpora tion D72.829 Elevated white blood ELEVATED WHITE BLOOD Diagnosis 03/14 [place] cell count, CELL COUNT, 06:15:00 PM [facility] unspecified UNSPECIFIED EDT Care Corporation R16.2 Hepatomegaly with HEPATOMEGALY WITH Diagnosis 03/14/2020 [place] splenomegaly, not SPLENOMEGALY, NOT 06:15:00 PM [facility] elsewhere classified ELSEWHERE CLASSIFIED EDT Care [place] D63.8 Anemia in other ANEMIA IN OTHER Diagnosis 03/14/2020 [place] chronic diseases CHRONIC DISEASES 06:15:00 PM [facility] Health classified elsewhere CLASSIFIED ELSEWHERE EDT Care Corporation D47.1 Chronic CHRONIC Diagnosis 03/05/2020 [place] myeloproliferative MYELOPROLIFERATIVE 08:02:00 PM [facility] disease DISEASE EDT Care Corporation D73.1 Hypersplenism HYPERSPLENISM Diagnosis 06/08/[address] [facility] 11:33:00 AM [facility] EDT Care [place] D72.828 Other elevated white OTHER ELEVATED WHITE Diagnosis 04/23 [place] blood cell count BLOOD CELL COUNT 12:15:00 PM [facility] [employer] [facility] EDT Care Corporation 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 [place] (current) drug (CURRENT) DRUG 12:15:00 PM Count y Health therapy THERAPY EDT Care Corporation E78.5 Hyperlipidemia, HYPERLIPIDEMIA, Diagnosis 04/23/2019 [place] unspecified UNSPECIFIED 12:15:00 PM [facility] EDT Care Corporation Z96.641 Presence of right PRESENCE OF RIGHT Diagnosis 04/23/2019 [place] artificial hip joint ARTIFICIAL HIP JOINT 12:15 :00 PM [facility] EDT Care [place] M62.830 Muscle spasm of back MUSCLE SPASM OF BACK Diagnosis 04/15 [place] 11:58:00 PM [facility] EDT Care Corporation M25.551 Pain in right hip PAIN IN RIGHT HIP Diagnosis 04/15/2019 [place] 11:58:00 PM [facility] EDT Care Corporation S72.111 Displaced fracture of DISP FX OF GREATER Diagnosis 2018 [place] D greater trochanter of TROCHANTER OF R FEMR, 06: 00:00 AM [facility] right femur, 7THD EDT Care subsequent encounter Josselin oration for closed fracture with routine healing M84.451 Pathological PATHOLOGICAL Diagnosis 11/09/2018 [facility] r A fracture, right FRACTURE, RIGHT 06:00:00 AM [facility] femur, initial FEMUR, INIT ENCNTR EDT Ca re encounter for FOR FRACTURE Corporati on fracture Surgeries/Procedures Procedure Description Date Indications Data Source(s) INPATIENT CONSULTATION 04/16/2019 [facility] EN ([facility] 12:00:00 AM EDT [facility] - 04/16/2019 [facility]) 12:00:00 AM EDT Results ID Date Data Source [id number] 04/17/2020 12:00:00 AM EDT [facility] Name Value Range Interpretation Code Description Data Yuliana rce(s) Supporting Document(s ) SARS-COV-2 [place] RNA RT-PCR [facility] This lab was ordered by [facility] and reported by [facility]. ID Date Data Source [id number] 03/14/2020 05:25:00 AM EDT [facility] [id number] Corporation Name Value Range Interpretation Description Data Sup porting Code Source(s) Document(s ) Hemoglobin 7.2 g/dL 12.0-1 <td> 03/14/2020 [place] [Mass/volume 6.0 05:25</td><td> County ] in Blood g/dL [facility] </td><td><Scribz raph styleCode="Bold "> 7.2 L </paragraph>
(12.0-16.0) g/dL </td> Leukocytes 63.4 k/mm3 4.8-10 <td> 03/14/2020 [place] [#/volume] .8 05:25</td><td> County in Blood by k/mm3 WBC [facility] Automated </td><td><Scribz count raph styleCode="Bold "> 63.4 * CH </paragraph>
(4.8-10.8) k/mm3 </td> Erythrocytes 2.41 m/mm3 3.90-5 <td> 03/14/2020 [facility] r [#/volume] .20 05:25</td><td> County in Blood m/mm3 RBC Health Care </td><td><Scribz raph styleCode="Bold "> 2.41 L </paragraph>
(3.90-5.20) m/mm3 </td> Erythrocyte 100.4 fL 81.0-9 <td> 03/14/2020 [place] mean 9.0 fL 05:25</td><td> County corpuscular [facility] volume </td><td><selene Corporation [Entitic raph volume] by styleCode="Bold Automated "> count 100.4 H </paragraph>
(81.0-99.0) fL </td> Erythrocyte 29.8 % 32.0-3 <td> 03/14/2020 [place] mean 6.0 % 05:25</td><td> County corpuscular [facility] hemoglobin </td><td><selene Corporation concentratio raph n styleCode="Bold [Mass/volume "> ] in Blood 29.8 from Fetus L by Automated </paragraph><br count /> (32.0-36.0) % </td> Erythrocyte 17.2 % 11.5-1 <td> 03/14/2020 [place] distribution 4.5 % 05:25</td><td> County width [facility]DW [facility] [Entitic </td><td><selene [place] volume] by raph Automated styleCode="Bold count "> 17.2 H </paragraph>
(11.5-14.5) % </td> Hematocrit 24.2 % 37.0-4 <td> 03/14/2020 [place] [Volume 7.0 % 05:25</td><td> County Fraction] of HCT Health Care Blood by </td><td><selene [place] Automated raph count styleCode="Bold "> 24.2 L </paragraph>
(37.0-47.0) % </td> Erythrocyte 29.9 pg 27.0-3 <td> 03/14/2020 [place] mean 1.5 pg 05:25</td><td> County corpuscular [facility]CH </td><td> Health Care hemoglobin Corporation [Entitic 29.9 mass] by Automated
count (27.0-31.5) pg </td> Platelets 129 k/mm3 160-41 <td> 03/14/2020 [place] [#/volume] 0 05:25</td><td> County in Blood by k/mm3 Platelet Count Health Care Automated </td><td><Scribz count raph styleCode="Bold "> 129 L </paragraph>
(160-410) k/mm3 </td> Platelet Not Measured <td> 03/14/2020 [place] mean volume 05:25</td><td> County [Entitic MPV [facility] volume] in </td><td><selene [place] Blood by raph Automated styleCode="Bold count "> Not Measured X </paragraph>
(9.8-12.8) fL </td> Monocytes/Le 9.0 % 0.0-11 <td> 03/12/2020 [place] ukocytes .0 % 10:19</td><td> County [Pure number Monocytes. Health Care fraction] in </td><td> [place] Blood by Automated 9.0 count
(0.0-11.0) % </td> Lymphocytes 31.0 % 17.0-5 <td> 03/12/2020 [place] [#/volume] 0.0 % 10:19</td><td> County in Blood by Lymphocytes Health Care Automated </td><td> Corporation count 31.0
(17.0-50.0) % </td> Metamyelocyt 5.0 % % <td> 03/12/2020 [place] es 10:19</td><td> County [#/volume] Metamyelocytes Health Care in Blood by </td><td><Scribz Manual count raph styleCode="Bold "> 5.0 * AB </paragraph>
% </td> Neutrophils 42.0 % 40.0-7 <td> 03/12/2020 [place] [#] in Body 6.0 % 10:19</td><td> County fluid by Neutrophils Health Care Manual count </td><td> [place] 42.0
(40.0-76.0) % </td> Basophils 0.0 % 0.0-2. <td> 03/12/2020 [place] [#/volume] 0 % 10:19</td><td> County in Blood by Basophils Health Care Automated </td><td> Corporation count 0.0
(0.0-2.0) % </td> Basophils+Eo 0.0 % 0.0-5. <td> 03/12/2020 [place] sinophils+Mo 0 % 10:19</td><td> County nocytes Eosinophils Health Care [#/volume] </td><td> Corporation in Blood by Automated 0.0 count
(0.0-5.0) % </td> Anisocytosis Slight <td> 03/12/2020 [place] [Presence] 10:19</td><td> County in Blood by Anisocytosis Health Care Light </td><td> Corporation microscopy Slight
</td> Promyelocyte 1.0 % % <td> 03/07/2020 [place] s [#/volume] 05:16</td><td> County in Blood by Promyelocyte Health Care Manual count </td><td><Scribz raph styleCode="Bold "> 1.0 * AB </paragraph>
% </td> Blasts/100 2.0 % % <td> 03/12/2020 [place] leukocytes 10:19</td><td> County in Body Blast Health Care fluid by </td><td><Scribz Manual count raph styleCode="Bold "> 2.0 * AB </paragraph>
% </td> Myelocytes 7.0 % % <td> 03/12/2020 [place] [#/volume] 10:19</td><td> County in Blood by Myelocyte Health Care Manual count </td><td><Scribz raph styleCode="Bold "> 7.0 * AB </paragraph>
% </td> Glucose 115 mg/dL 70-105 <td> 03/14/2020 [place] [Mass/volume mg/dL 05:25</td><td> County ] in Blood Glucose-Serum Health Care </td><td><Scribz raph styleCode="Bold "> 115 H </paragraph>
(70-105) mg/dL </td> Ovalocytes Few <td> 03/07/2020 [place] [Presence] 05:16</td><td> County in Blood by Ovalocytes Health Care Light </td><td> Corporation microscopy Few
</td> Poikilocytos Slight <td> 03/12/2020 [place] is 10:19</td><td> County [Presence] Poikilocytosis Health Care in Blood by </td><td> Corporation Light microscopy Slight
</td> Polychromasi Slight <td> 03/12/2020 [place] a [Presence] 10:19</td><td> County in Blood by Polychromasia Health Care Light </td><td> Corporation microscopy Slight
</td> Macrocytes Slight <td> 03/11/2020 [place] [Presence] 03:13</td><td> County in Blood by Macrocytic Health Care Light </td><td> Corporation microscopy Slight
</td> Sodium 135 mEq/L 135-14 <td> 03/14/2020 [place] [Moles/volum 5 05:25</td><td> County e] in Serum mEq/L Sodium-Serum Health Care or Plasma </td><td> Corporation 135
(135-145) mEq/L </td> Carbon 22 mEq/L 22-30 <td> 03/14/2020 [place] dioxide, mEq/L 05:25</td><td> [facility] total CO2 </td><td> Health Care [Moles/volum Corporation e] in Serum 22 or Plasma
(22-30) mEq/L </td> Chloride 101 mEq/L 98-107 <td> 03/14/2020 [place] [Moles/volum mEq/L 05:25</td><td> County e] in Serum Chloride Health Care or Plasma </td><td> Corporation 101
(98-107) mEq/L </td> Potassium 5.6 mEq/L 3.5-5. <td> 03/14/2020 [place] [Moles/volum 1 05:25</td><td> County e] in Serum mEq/L Potassium-Serum Health Care or Plasma </td><td><[employer] graph styleCode="Bold "> 5.6 H </paragraph>
(3.5-5.1) mEq/L </td> Aspartate 17 U/L 4-35 <td> 03/12/2020 [place] aminotransfe U/L 05:56</td><td> [facility] rase AST (SGOT) Health Care [Enzymatic </td><td> [place] activity/vol ume] in 17 Serum or
Plasma (4-35) U/L </td> Creatinine 0.76 mg/dL 0.57-1 <td> 03/14/2020 [place] [Moles/volum .11 05:25</td><td> [facility] e] in Serum mg/dL Creatinine. Health Care or Plasma </td><td> [place] 0.76
(0.57-1.11) mg/dL </td> Urea 41 mg/dL 6-22 <td> 03/14/2020 [place] nitrogen mg/dL 05:25</td><td> [facility] [Mass/volume BUN Health Care ] in Blood </td><td><Scribz raph styleCode="Bold "> 41 H </paragraph>
(6-22) mg/dL </td> Alanine 16 U/L 6-55 <td> 03/12/2020 [place] aminotransfe U/L 05:56</td><td> [facility] rase ALT (SGPT) Health Care [Enzymatic </td><td> [place] activity/vol ume] in 16 Serum or
Plasma (6-55) U/L </td> Albumin 3.7 g/dL 3.4-4. <td> 03/12/2020 [place] [Mass/volume 8 g/dL 05:56</td><td> [facility] ] in Serum Albumin Health Care or Plasma </td><td> [place] 3.7
(3.4-4.8) g/dL </td> Bilirubin.to 0.4 mg/dL 0.2-1. <td> 03/12/2020 [place] alfredito 3 05:56</td><td> [facility] [Mass/volume mg/dL Bilirubin - Health Care ] in Blood Total [place] </td><td> 0.4
(0.2-1.3) mg/dL </td> Proteins - 5.7 g/dL 6.4-8. <td> 03/12/2020 [place] Total 3 g/dL 05:56</td><td> [facility] Proteins - Health Care Total [place] </td><td><Snap Trends raph styleCode="Bold "> 5.7 L </paragraph>
(6.4-8.3) g/dL </td> Calcium 7.9 mg/dL 8.6-10 <td> 03/14/2020 [place] [Mass/volume .2 05:25</td><td> [facility] ] in Blood mg/dL Calcium Health Care </td><td><Scribz raph styleCode="Bold "> 7.9 L </paragraph>
(8.6-10.2) mg/dL </td> Hemolysis No Hemolysis <td> 03/14/2020 [place] index of 05:25</td><td> [facility] Serum or Hemolysis Index [facility] Plasma </td><td> [place] No Hemolysis
</td> Anion gap in 12 mEq/L 7-13 <td> 03/14/2020 [place] Serum or mEq/L 05:25</td><td> [facility] Plasma Anion Gap [facility] Care </td><td> [place] 12
(7-13) mEq/L </td> Globulin 2.0 gm/dL 2.9-4. <td> 03/12/2020 [place] [Mass/volume 0 05:56</td><td> [facility] ] in Serum gm/dL Globulin Health Care </td><td><Scribz raph styleCode="Bold "> 2.0 L </paragraph>
(2.9-4.0) gm/dL </td> Prothrombin 13.4 secs 9.4-12 <td> 03/06/2020 [place] time (PT) .5 10:08</td><td> [facility] secs Prothrombin Health Care Time. [facility] </td><td><selene raph styleCode="Bold "> 13.4 H </paragraph>
(9.4-12.5) secs </td> Icteric Not Icteric <td> 03/14/2020 [place] index of 05:25</td><td> [facility] Serum or Icteric Index Health Care Plasma </td><td> [place] Not Icteric
</td> Lipemic No Lipemia <td> 03/14/2020 [place] index of 05:25</td><td> [facility] Serum or Lipemia Index Health Care Plasma </td><td> [place] No Lipemia
</td> Phosphate 4.4 mg/dL 2.3-4. <td> 03/12/2020 [place] [Mass/volume 7 05:56</td><td> [facility] ] in Serum mg/dL Inorganic Health Care or Plasma Phosphorus [facility] </td><td> 4.4
(2.3-4.7) mg/dL </td> aPTT panel - 28.3 secs 25.0-3 <td> 03/06/2020 [place] Platelet 6.5 10:08</td><td> [facility] poor plasma secs Partial Health Care Thromboplastin [facility] Time </td><td> 28.3
(25.0-36.5) secs
PLEASE NOTE: New reference range in effect March 05, 2020.

(25.0-36.5) secs </td> Specific 1.011 {} 1.000- <td> 03/06/2020 [place] gravity of 1.035 11:30</td><td> [facility] Urine by Specific Health Care Test strip [facility] </td><td> 1.011
(1.000-1.035) </td> Appearance Clear <td> 03/06/2020 [place] of Urine 11:30</td><td> [facility] Appearance Health Care </td><td> [place] Clear
(CLEAR) </td> Source BONE PEÑA <td> 03/12/2020 [place] 09:30</td><td> County Source Health Care </td><td> Corporation BONE PEÑA
</td> Protein Negative <td> 03/06/2020 [place] [Presence] 11:30</td><td> County in Urine by Protein Health Care Automated Qualitative [place] test strip </td><td> Negative
(NEGATIVE) </td> Glucose Negative <td> 03/06/2020 [place] [Presence] 11:30</td><td> County in Urine by Glucose_ Health Care Test strip </td><td> Corporation Negative
(NEGATIVE) </td> Urobilinogen 0.2 mg/dL 0.0-2. <td> 03/06/2020 [place] [Presence] 0 11:30</td><td> County in Urine by mg/dL Urobilinogen Health Care Automated </td><td> [place] test strip 0.2
(0.0-2.0) mg/dL </td> Nitrite Negative <td> 03/06/2020 [place] [Presence] 11:30</td><td> County in Urine by Nitrites Health Care Test strip </td><td> Corporation Negative
(NEGATIVE) </td> Leukocyte Not Indicated <td> 03/06/2020 [facility] r esterase 11:30</td><td> County [Presence] Physiochemica Urine Health Care in Urine by l tests: Microscopic. [place] Test strip Protein, </td><td> Leukocyte, Not Indicated Blood and
Nitrates are negative. Physiochemical Microscopic tests: Protein, exam not Leukocyte, performed. Blood and Nitrates are
negative. Microscopic exam not performed.

</td> Leukocyte Negative <td> 03/06/2020 [place] esterase 11:30</td><td> County [Presence] Leukocytes Health Care in Urine by Esterase [place] Test strip </td><td> Negative
(NEGATIVE) </td> Magnesium 2.6 mg/dL 1.6-2. <td> 03/12/2020 [place] [Mass/volume 6 05:56</td><td> [facility] ] in Serum mg/dL Magnesium Level Health Care or Plasma </td><td> Corporation 2.6
(1.6-2.6) mg/dL </td> Uric Acid 6.4 mg/dL 2.6-6. <td> 03/06/2020 [place] 0 10:08</td><td> [facility] mg/dL Uric Acid Health Care </td><td><selene [facility] raph styleCode="Bold "> 6.4 H </paragraph>
(2.6-6.0) mg/dL </td> Fibrinogen 351 mg/dL 200-40 <td> 03/06/2020 [place] [Mass/volume 0 10:08</td><td> [facility] ] in mg/dL Fibrinogen Health Care Platelet Level [facility] poor plasma </td><td> by Coagulation 351 assay
(200-400) mg/dL
PLEASE NOTE: New reference range in effect March 05, 2020.

(200-400) mg/dL </td> Glucose 105 mg/dL 70-105 <td> 03/10/2020 [place] [Mass/volume mg/dL 12:59</td><td> [facility] ] in Glucose - Health Care Capillary Finger Stick [facility] blood by </td><td> Glucometer 105
(70-105) mg/dL
RN notified

(70-105) mg/dL </td> ID Date Data Source [id number] 03/13/2020 04:47:00 PM EDT [facility] [id number] Corporation Name Value Range Interpretation Description Data Source(s ) Supporting Code Document(s ) Specimen 03/16/20 <td> [place] expiration 20 23:59 03/13/2020 [facility] date of Blood 16:47</td><td> Care Specimen Corporation Expiration Date </td><td> 03/16/2020 23:59
</td> Antibody POS <td> [place] Screen 03/13/2020 [facility] 16:47</td><td> Care Antibody Corporation Screen </td><td><para graph styleCode="Gregorio d"> POS A </paragraph><b r/></td> ABO-Rh Type O POS <td> [place] 03/13/2020 [facility] 16:47</td><td> Care ABO-Rh Type Corporation </td><td> O POS
</td> Antibody ID 1 POS, <td> [place] Anti-E 03/05/2020 [facility] 20:43</td><td> Care Antibody ID 1 Corporation </td><td><para graph styleCode="Gregorio d"> POS, Anti-E A </paragraph><b r/></td> SARA POLY NEG <td> [place] 03/13/2020 [facility] 16:47</td><td> Care SARA POLY Corporation </td><td> NEG
</td> ID Date Data Source [id number] 03/08/2020 08:35:00 PM EDT [facility] [id number] Corporation Name Value Range Interpretation Description Data Sup porting Code Source(s) Document(s ) Brain (PACSIMAGE <td> 03/08/2020 [place] Without 20:35</td><td> County Contrast ) Final Brain Without Health Care -MRI Result Contrast-MRI Corporation Name: TAY </td><td><paragrap DIANNA MRN: ethan [id number] Sex: F styleCode="Italics : ">(PACSIMAGE 1960 Location: F )</paragraph>
Admitting
Final Physician: Result CYNTHIA

JULIO Name: TAY Requesting DIANNA Physician:
MRN: ASHLEY [id number] Sex: F IBABAO
Exam: MRI : 1960 BRAIN C- Location: F 03/08/2020
21:48 Admitting CLINICAL Physician: INDICATION: MS CYNTHIA BAILEY flare
evaluation Requesting comparison Physician: TECHNIQUE: ASHLEY RAMON Multiplanar multisequentia

l MR imaging Exam: MRI BRAIN C- of the brain 03/08/2020 21:48 was obtained without the

administration CLINICAL of contrast. INDICATION: MS COMPARISON: flare evaluation Noncontrast comparison MRI

examination TECHNIQUE: obtained Multiplanar earlier on the multisequential MR same day.. imaging of the FINDINGS: brain Motion
was artifact obtained without degrades many the administration images of the of contrast. examination.

Extensive COMPARISON: signal Noncontrast MRI abnormality is examination present in the obtained earlier cerebral white on the matter,
same predominantly day.. periventricula

r and FINDINGS: consistent
Motion with a known artifact degrades diagnosis of many images of the multiple examination. sclerosis.

Diffuse Extensive signal atrophy is abnormality is present. There present in the is no gross cerebral white intracranial
mass or mass matter, effect. No predominantly evidence for periventricular hemorrhage is and consistent demonstrated. with a known
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 study

demonstrates Diffuse atrophy is extensive present. There is white matter no gross abnormality, intracranial mass consistent
with multiple or mass effect. sclerosis and No evidence for unchanged hemorrhage is compared with demonstrated. examination

obtained IMPRESSION: approximately

11 hours 1. This motion earlier.. 2. limited study Evaluation for demonstrates acute extensive white demyelination matter is limited in
the absence abnormality, of consistent with postcontrast multiple sclerosis images. and unchanged Resident
Radiologist: compared with Attending examination Radiologist: obtained Devyn Tellez approximately 11 MD hours earlier.. Finalizing
Radiologist: 2. Evaluation for Devyn Tellez acute MD demyelination is Transcribed limited in the Date: absence 03/08/2020
of 22:33 postcontrast Finalized images. Date:

<br 03/08/2020 /> Resident 22:39 Radiologist:
Attending Radiologist: Devyn Tellez MD
Finalizing Radiologist: Devyn Tellez MD
Transcribed Date: 03/08/2020 22:33
Finalized Date: 03/08/2020 22:39

</td> Chest PA (PACSIMAGE <td> 03/05/2020 [place] & 17:45</td><td> [facility] ) Final Chest PA & Lateral Health Care Result </td><td>[facility] Name: jonathan CROSS MRN: styleCode="Italics [id number] Sex: F ">(PACSIMAGE : 1960 )</paragraph>
Location: F
Final Admitting Result Physician:

EMERGENCY Name: OMERO CROSS Requesting
MRN: Physician: [id number] Sex: F YEHUSHARATH BELLE
ROSENBERG : 1960 Exam: CHEST PA Location: F AND LATERAL
03/05/2020 Admitting 19:43 Physician: Clinical EMERGENCY SERVICE History: Cough
Requesting Technique: Physician: YANIQUE PA/lateral BOUCHRA ROSENBERG chest

radiograph Exam: CHEST PA AND Comparison: LATERAL 03/05/2020 04/15/2019 19:43 Findings:

Lines and Clinical History: tubes: None Cough There is

bibasal Technique: atelectasis PA/lateral chest versus radiograph pneumonia.

There are no Comparison: pleural 04/15/2019 effusions.

There is no Findings: pneumothorax.

The Lines and tubes: cardiomediasti None nal silhouette

is stable. There is bibasal Impression: atelectasis versus Bibasilar pneumonia. There atelectasis are no pleural versus
pneumonia. effusions. There is no Resident pneumothorax. The Radiologist: cardiomediastinal Attending silhouette Radiologist:
is Jero lovell.

Finalizing Impression: Radiologist:

Jero Victoria MD atelectasis versus Transcribed pneumonia. Date: 03/05/2020

<br 20:39 /> Resident Finalized Radiologist: Date:
03/05/2020 Attending 20:40 Radiologist: Jero Slater MD
Finalizing Radiologist: Jero Slater MD
Transcribed Date: 03/05/2020 20:39
Finalized Date: 03/05/2020 20:40

</td> C Spine (PACSIMAGE <td> 03/08/2020 [place] Without 20:35</td><td> C [place] Contrast ) Final Spine Without Health Care -MRI Result Contrast-MRI Corporation Name: ROSE MARIESCOTT, </td><td><paragrap DIANNA MRN: [id number] Sex: F styleCode="Italics : ">(PACSIMAGE 1960 Location: F )</paragraph>
Admitting
Final Physician: Margaret MARIE

JULIO Name: Iain CROSS Physician:
MRN: ASHLEY [id number] Sex: F IBABAO
Exam: MRI C : 1960 SPINE C- Location: F 03/08/2020
21:48 Admitting CLINICAL Physician: INDICATION: MS CYNTHIA BAILEY flare
TECHNIQUE: Requesting Sagittal T2 Physician: and sagittal ASHLEY RAMON STIR images of the cervical

spine were Exam: MRI C SPINE obtained C- 03/08/2020 without the 21:48 administration

of contrast. CLINICAL Patient INDICATION: MS could not flare tolerate

further TECHNIQUE: imaging. Sagittal T2 and COMPARISON: sagittal STIR MRI cervical images of the spine obtained cervical earlier on
spine 03/08/20200 were obtained FINDINGS: without the The provided administration of images are contrast. Patient nondiagnostic
due to could not excessive tolerate further motion imaging. artifact.

IMPRESSION: COMPARISON: MRI Incomplete, cervical spine nondiagnostic obtained earlier imaging due to on 03/08/20200 limited

patient FINDINGS: tolerance
The for the provided images examination. are nondiagnostic due to excessive Resident motion Radiologist:
Attending artifact. Radiologist:

Devyn Tellez IMPRESSION:

Finalizing Incomplete, Radiologist: nondiagnostic Devyn Tellez imaging due to MD limited patient Transcribed tolerance Date:
for 03/08/2020 the examination. 22:40 Finalized

<br Date: /> Resident 03/08/2020 Radiologist: 22:41
Attending Radiologist: Devyn Tellez MD
Finalizing Radiologist: Devyn Tellez MD
Transcribed Date: 03/08/2020 22:40
Finalized Date: 03/08/2020 22:41

</td> ID Date Data Source [id number] 03/05/2020 12:00:00 AM EDT [facility] [place] [employer] Name Value Range Interpretation Code Description Data Yuliana rce(s) Supporting Document(s ) SARS-COV-2 [place] RNA RT-PCR [facility] This lab was ordered by [facility] and reported by [facility]. ID Date Data Source [id number] 04/23/2019 11:24:51 AM EDT [facility] [place] [id number] Corporation Name Value Range Interpretation Description Data Sup porting Code Source(s) Document(s ) ABO O POS <td> [place] Verification 04/16/2019 [facility] 18:19</td><td> Care ABO Corporation Verification </td><td> O POS
</td> Antibody ID 1 POS, <td> [place] Anti-E 04/15/2019 [facility] 12:59</td><td> Care Antibody ID 1 Corporation </td><td><para graph styleCode="Gregorio d"> POS, Anti-E A </paragraph><b r/></td> ABO-Rh Type O POS <td> [place] 04/20/2019 [facility] 16:12</td><td> Care ABO-Rh Type Corporation </td><td> O POS
</td> Specimen 04/23/20 <td> [place] expiration date 19 23:59 04/20/2019 [facility] of Blood 16:12</td><td> Care Specimen Corporation Expiration Date </td><td> 04/23/2019 23:59
</td> SARA POLY NEG <td> [place] 04/20/2019 [facility] 16:12</td><td> Care SARA POLY Corporation </td><td> NEG
</td> Antibody POS <td> [place] Screen 04/20/2019 [facility] 16:12</td><td> Care Antibody Corporation Screen </td><td><para graph styleCode="Gregorio d"> POS A </paragraph><b r/></td> ID Date Data Source [id number] 04/23/2019 11:24:51 AM EDT [facility] [place] [id number] Corporation Name Value Range Interpretation Description Data Sup porting Code Source(s) Document(s ) Brain (PACSIMAGE <td> 04/15/2019 [place] With&Witho 13:14</td><td> [facility] ) Brain Health Care Contrast-M Final Result With&Without Corporation [place] Name: Contrast-MRI ROSE MARIESCOTT </td><td><paragra DIANNA MRN: jonathan [id number] Sex: styleCode="Italic F : s">(PACSIMAGE 1960 Location: F )</paragraph><br/ Admitting >
Final Physician: Result EMERGENCY

SERVICE Name: TAY Requesting DIANNA Physician:
MRN: CEDRICK [id number] Sex: F LANOIX
Exam: MRI : 1960 BRAIN C+/C- Location: F 04/15/2019
21:54 Admitting CLINICAL Physician: INDICATION: EMERGENCY SERVICE Motor
weakness on Requesting exam. Physician: Junie HAIRSTON sclerosis.. TECHNIQUE:

Multiplanar Exam: MRI BRAIN multisequenti C+/C- 04/15/2019 al MR imaging 21:54 of the brain

was obtained CLINICAL before and INDICATION: Motor after the weakness on exam. administratio Multiple n of sclerosis.. contrast.

Contrast TECHNIQUE: dose: 7 cc Multiplanar gadavist multisequential COMPARISON: MR imaging of the MRI brain brain 09/12/2018.
was FINDINGS: obtained before Some and after the images of the administration of examination contrast. are degraded
by motion Contrast dose: 7 artifact.. cc gadavist Diffuse

atrophy is COMPARISON: MRI present. brain 09/12/2018. There is extensive

abnormality FINDINGS: of the

cerebral Some images of white matter, the examination periventricul are degraded by ar motion artifact.. predominant and with a

configuration Diffuse atrophy suggestive of is present. There multiple is extensive sclerosis abnormality of lacks. No new
lesion is the cerebral identified, white matter, and there is periventricular no abnormal predominant and enhancement. with There is no
a evidence for configuration acute suggestive of infarction. multiple No acute sclerosis lacks. hemorrhage is No new demonstrated,
lesion and there is identified, is no and there is no extra-axial abnormal collection. enhancement. There IMPRESSION:
is no Extensive evidence for white matter acute infarction. abnormality, No acute compatible hemorrhage is with the demonstrated, history of
multiple and there is no sclerosis and extra-axial stable collection. compared with

a prior IMPRESSION: study. No

new lesion or Extensive abnormally white matter enhancing abnormality, lesion is compatible with seen to the history suggest
of acute multiple demyelination sclerosis and . stable compared Resident with a prior Radiologist: study. Attending
No new Radiologist: lesion or Devyn Tellez abnormally MD enhancing lesion Finalizing is seen to Radiologist: suggest Devyn Tellez
acute MD demyelination. Transcribed Date:

<b 04/15/2019 r/> Resident 22:40 Radiologist: Finalized
Date: Attending 04/15/2019 Radiologist: 22:44 Devyn Tellez MD
Finalizing Radiologist: Devyn Tellez MD
Transcribed Date: 04/15/2019 22:40
Finalized Date: 04/15/2019 22:44

</td> Pulmonary (PACSIMAGE <td> 04/20/2019 [facility] [place] 10:35</td><td> [facility] ) Chest Without Health Care Final Result Contrast-CT Corporation Name: </td><td><orquidea CROSS, DIANNA MRN: styleCode="Harjinderic [id number] Sex: s">(PACSIMAGE F : 1960 )</paragraph><br/ Location: F >
Final Admitting Result Physician:

EMILY BHATIA Name: Iain CROSS Physician:
MRN: DEREK [id number] Sex: F LOVE
RODRIGUEZ : 1960 Exam: CT Location: F THORAX C-
04/20/2019 Admitting 10:58 Physician: EMILY EXAM: CT Scan CHO of the Chest
without Requesting Contrast Physician: CLINICAL DEREK LOVE INFORMATION: RODRIGUEZ History of

multiple Exam: CT THORAX sclerosis. C- 04/20/2019 Pain rule 10:58 out

pathological EXAM: CT Scan fracture. of the Chest ADDITIONAL without Contrast CLINICAL HISTORY

INCLUDES CLINICAL MYELOFIBROSIS INFORMATION: . History of TECHNIQUE: multiple Multiple sclerosis. Pain contiguous rule axial images
out were obtained pathological from the fracture. thoracic ADDITIONAL inlet through CLINICAL HISTORY the adrenal INCLUDES glands
without the MYELOFIBROSIS. use of intravenous

contrast TECHNIQUE: material. Multiple Coronal and contiguous axial sagittal images were reformatted obtained from images were
provided for the thoracic review. inlet through the adrenal glands COMPARISON: without the use CT
thorax/abdome of intravenous n/pelvis contrast 06/05/2018. material. Coronal FINDINGS: and sagittal LUNGS: reformatted Redemonstrate
d images were scarring/atel provided for ectasis at review. the left

< posterior br/> costophrenic COMPARISON: CT angle and the thorax/abdomen/pe left lateral lvis 06/05/2018. oblique fissure with

radiodense FINDINGS: surgical

suture LUNGS: material. Redemonstrated AIRWAYS: scarring/atelecta Patent. sis at the left MEDIASTINUM, posterior ROSALINDA AND
LYMPH NODES: costophrenic No enlarged angle and the lymph nodes. left lateral Normal oblique fissure visualized with thyroid.
PLEURA: No radiodense effusion. surgical suture HEART AND material. PERICARDIUM:
Normal heart AIRWAYS: Patent. size. There
is trace MEDIASTINUM, coronary ROSALINDA AND LYMPH calcification NODES: No . No enlarged lymph pericardial nodes. Normal effusion.
VESSELS: visualized Aorta normal thyroid. in size.
There is PLEURA: No trace effusion. scattered
atherosclerot HEART AND ic PERICARDIUM: calcification Normal heart . Normal size size. There is pulmonary trace coronary arteries.
SOFT TISSUES: calcification. No Normal. pericardial UPPER effusion. ABDOMEN: The
partially VESSELS: Aorta visualized normal in size. liver and There is trace spleen are scattered enlarged. atherosclerotic BONES:
Persistent calcification. diffuse Normal size increased pulmonary mixed arteries. sclerotic and
SOFT lytic TISSUES: Normal. appearance of
the bones, UPPER ABDOMEN: compatible The partially with known visualized liver history of and spleen are myelofibrosis
. enlarged. Redemonstrate
d chronic BONES: Persistent changes of diffuse increased left lower mixed sclerotic rib resection and lytic site of
prior lung appearance of the surgery. No bones, compatible acute with known fractures or history of dislocations. myelofibrosis.
IMPRESSION: Redemonstrated 1. Severe chronic changes osseous of left lower rib sclerosis resection site with
splenomegaly of prior lung consistent surgery. No acute with fractures or provided dislocations. history of

myelofibrosis IMPRESSION: . 2. Old
healed 1. 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
No acute provided history fractures. of myelofibrosis. 3. Mild
atherosclerot 2. Old healed ic postthoracotomy calcification deformity of the s of the left rib cage. coronary
arteriess No acute fractures. Resident
3. Radiologist: Mild Devyn Fischer atherosclerotic Resident calcifications of Radiologist the coronary Attending arteriess Radiologist: Kecia

<b Caryl r/> Resident Radiologist: Finalizing Devyn Fischer MD Radiologist: Resident Kecia Radiologist Caryl
Attending Transcribed Radiologist: Kecia Date: Caryl RG 04/20/2019
11:56 Finalizing Finalized Radiologist: Kecia Date: Caryl RG 04/20/2019
17:40 Transcribed Date: 04/20/2019 11:56
Finalized Date: 04/20/2019 17:40

</td> Cervical (PACSIMAGE <td> 04/20/2019 [place] Spine 10:35</td><td> County W/Out ) Cervical Spine Health Care Contrast-C Final Result W/Out Contrast-CT Corporat ion T Name: </td><td><paragr TAY, blanka BUSTAMANTE MRN: styleCode="Italic [id number] Sex: s">(PACSIMAGE F : 1960 )</paragraph><br/ Location: F >
Final Admitting Result Physician:

EMILY BHATIA Name: Iain CROSS Physician:
MRN: DEREK [id number] Sex: F IVAN
JENNIFER : 1960 Exam: CT C Location: F SPINE C-
04/20/2019 Admitting 10:54 Physician: EMILY BHATIA HISTORY:
Multiple Requesting sclerosis, Physician: rule out DEREK LOVE pathologic RODRIGUEZ fracturee

Exam: CT C SPINE COMPARISON: C- 04/20/2019 None. 10:54 TECHNIQUE:

Noncontrast CLINICAL CT scan of HISTORY: Multiple the cervical sclerosis, rule spine is out pathologic performed fracturee with 2 mm axial images

acquired from COMPARISON: the base of None. the skull to

the thoracic TECHNIQUE: inlet.

Coronal and Noncontrast CT sagittal scan of the reconstructed cervical spine is images are performed with 2 supplied for
interpretatio mm axial images n.. acquired from the Up-to-date CT base of the skull equipment to the thoracic using
Automatic inlet. Exposure

Control, dose Coronal and modulation, sagittal and iterative reconstructed reconstructio images are n dose supplied for reduction interpretation.. software was employed.

The total Up-to-date CT study DLP is equipment using approximately Automatic 158 mGy-cm. Exposure Control, dose FINDINGS:
Alignment modulation, and and curvature iterative of the reconstruction cervical dose reduction spine is software preserved.
was There is no employed. evidence of
The acute total study DLP fracture of is approximately the 158 mGy-cm. visualized cervical

spine. FINDINGS: Multilevel

degenerative Alignment and changes are curvature of the present and cervical spine is incompletely preserved. There assessed,
most is no evidence prominent at of acute fracture the C5-C6 of the visualized level. cervical spine. Dedicated MRI
of the Multilevel cervical degenerative spine may be changes are obtained for present and further incompletely characterizat
ion as assessed, most clinically prominent at the appropriate. C5-C6 level. There is a Dedicated MRI of lucency
within the the cervical left pars spine may be interarticula obtained for ris of T3, further which may characterization represent
degenerative as clinically change appropriate. versus focus There is a of lucency within myelofibrosis the left . The
pars prevertebral interarticularis soft tissues of T3, which may are represent unremarkable. degenerative Shotty
cervical change versus chain lymph focus of nodes are myelofibrosis. seen. The prevertebral Extensive soft tissues diffuse
permeative are unremarkable. mixed lytic Shotty cervical and sclerotic chain lymph nodes appearance are seen. to the
osseous Extensive diffuse structures permeative mixed compatible lytic and with the sclerotic history of appearance myelofibrosis
to .. the osseous IMPRESSION: structures 1. No compatible with evidence of the history of acute myelofibrosis.. fracture of the

visualized IMPRESSION: cervical

spine.. 1. No 2. Multilevel evidence of acute degenerative fracture of the changes are visualized present, most cervical spine.. prominent at C5-C6

2. level. Multilevel Dedicated MRI degenerative of the changes are cervical present, most spine may be prominent obtained
at for further C5-C6 level. characterizat Dedicated MRI of ion as the cervical clinically spine may be appropriate. obtained 3.
for Lucency further within the characterization left pars as clinically interarticula appropriate. ris T3 may

represent 3. Lucency degenerative within the left change versus pars focus of interarticularis myelofibrosis T3 may represent . 4.
Extensive degenerative diffuse change versus permeative focus of mixed lytic myelofibrosis. and sclerotic appearance

4. to the Extensive diffuse osseous permeative mixed structures lytic and compatible sclerotic with the appearance history of
to myelofibrosis the osseous .. structures compatible with Resident the history of Radiologist: myelofibrosis.. Monty Anguiano

<martha RG Resident r/>

<br/ Radiologistt >
Attending Resident Radiologist: Radiologist: Milad Anguiano MD Finalizing Resident Radiologist: Radiologistt Milad Cullen
Attending Transcribed Radiologist: Date: Milad Cullen MD 04/20/2019
13:05 Finalizing Finalized Radiologist: Date: Milad Cullen MD 04/20/2019
13:05 Transcribed Date: 04/20/2019 13:05
Finalized Date: 04/20/2019 13:05

</td> Femur (PACSIMAGE <td> 04/19/2019 [place] Bilateral 10:16</td><td> County 2 Views ) Femur Bilateral 2 Health Care Final Result Views Corporation Name: </td><td>jacob CROSS, DIANNA MRN: styleCode="Italic [id number] Sex: s">(PACSIMAGE F : 1960 )</paragraph><br/ Location: F >
Final Admitting Result Physician:

LIZETT DOWNING Name: TAY, Requesting DIANNA Physician:
MRN: GERBER HERCULES [id number] Sex: F Exam: FEMUR
BILATERAL : 1960 2/>VWS Location: F 04/19/2019
11:39 Admitting HISTORY: Physician: LIZETT DOWNING sclerosis,
rule out Requesting avascular Physician: GERBER HERCULES TECHNIQUE:

Bilateral Exam: FEMUR femur 8 views BILATERAL 2/>VWS 04/19/2019 11:39 COMPARISON: 04/16/2019

FINDINGS: HISTORY: Status post Multiple right hip sclerosis, rule arthroplasty. out avascular Left femoral necrosis head cortex

appears to be TECHNIQUE: intact and Bilateral femur 8 seated within views the

acetabulum. COMPARISON: No evidence 04/16/2019 of fracture

or FINDINGS: dislocation.

Redemonstrati Status post right on of dense hip arthroplasty. bones Left femoral head consistent cortex with
appears patient's to be intact and history of seated within the myelofibrosis acetabulum. . Given the
No diffuse evidence of density, fracture or evaluation dislocation. for avascular Redemonstration necrosis is of dense difficult..
bones consistent with IMPRESSION: patient's history As above of myelofibrosis. Given Resident
the Radiologist: Rick corona evaluation for Laquita RG avascular Resident necrosis is Radiologistt difficult.. Attending

Radiologist: IMPRESSION: Anthony
Asher RG As above Finalizing Radiologist:

<b Anthony r/>
Asher RG Resident Transcribed Radiologist: Date: Rick Coelho MD 04/19/2019 Resident 11:33 Radiologistt Finalized
Date: Attending 04/19/2019 Radiologist: 12:03 Anthony Sterling MD
Finalizing Radiologist: Anthony Sterling MD
Transcribed Date: 04/19/2019 11:33
Finalized Date: 04/19/2019 12:03

</td> Chest (PACSIMAGE <td> 04/15/2019 [facility] 13:57</td><td> [place] View ) Chest Single View Health Care Final Result </td><td><paragr Corporati on Name: aph TAY, styleCode="Italic DIANNA MRN: s">(PACSIMAGE [id number] Sex: F : )</paragraph><br/ 1960 >
Final Location: F Result Admitting

Physician: Name: CRISPIN CROSS SERVICE
MRN: Requesting [id number] Sex: F Physician:
CEDRICK : 1960 YOVANNY Location: F Exam: CHEST
SINGLE VIEW Admitting 04/15/2019 Physician: 14:16 EMERGENCY SERVICE EXAM: Chest
Portable 1 Requesting view Physician: COMPARISON:Leo HAIRSTON ltipllj priors, most

recently Exam: CHEST dated SINGLE VIEW 09/10/2018 04/15/2019 14:16 INDICATION: SEPSIS

PROTOCOL EXAM: Chest FINDINGS: Portable 1 view LINES AND TUBES: none.

LUNGS AND COMPARISON:Multip PLEURA: Hazy le priors, most and streaky recently dated opacities 09/10/2018 persist at

the right INDICATION: greater than SEPSIS PROTOCOL left lung bases.

Minimal FINDINGS: blunting of

the LINES AND TUBES: costophrenic none. sulci.
LUNGS HEART AND AND PLEURA: Hazy MEDIASTINUM: and streaky Normal opacities persist allowing for at the right patient
rotation.. greater than left BONES AND lung bases. SOFT TISSUES: Minimal blunting Patchy of the sclerosis costophrenic consistent
with known sulci. myelofibrosis
HEART . AND MEDIASTINUM: IMPRESSION: Normal allowing 1. Hazy for patient and streaky rotation.. opacities
persist at BONES AND SOFT the lung TISSUES: Patchy bases. sclerosis consistent with Resident known Radiologist:
Tru Garcia myelofibrosis. Resident Radiologist

Attending IMPRESSION: Radiologist:

Andrew 1. Hazy and Miky RG streaky opacities Finalizing persist at the Radiologist: lung bases. Andrew Bolaños MD

<b Transcribed r/>
Date: Resident 04/15/2019 Radiologist: 15:36 Tru Garcia MD Finalized Resident Date: Radiologist 04/15/2019
16:52 Attending Radiologist: Andrew Bolaños MD
Finalizing Radiologist: Andrew Bolaños MD
Transcribed Date: 04/15/2019 15:36
Finalized Date: 04/15/2019 16:52

</td> Foot 3 (PACSIMAGE <td> 04/16/2019 [place] Views Rt 10:34</td><td> [facility] ) Foot 3 Views Rt Health Care Final Result </td><td><paragra Corporati on Name: jonathan CROSS, styleCode="Becky BUSTAMANTE MRN: s">(PACSIMAGE [id number] Sex: F : )</paragraph><br/ 1960 >
Final Location: F Result Admitting

Physician: Name: LEXX CROSS Requesting
MRN: Physician: [id number] Sex: F ZIMARY HERCULES
Exam: FOOT : 1960 RIGHT 3 VIEWS Location: F 04/16/2019
11:16 Admitting History: Foot Physician: LEXX HENRY Frontal,
oblique and Requesting lateral views Physician: GERBRE of the right DELISA foot were

obtained.. Exam: FOOT RIGHT There is no 3 VIEWS acute 04/16/2019 11:16 fracture. There is no

dislocation. History: Foot There is no pain evidence of

acute Frontal, oblique osteomyelitis and lateral views . There is no of the right foot gas in the were obtained.. soft tissues.

Impression: There is no acute No acute fracture. There findings. is no dislocation. Resident There is Radiologist:
no Attending evidence of acute Radiologist: osteomyelitis. Manohar Renteria There is no gas MD in the soft Finalizing
Radiologist: tissues. Manohar Renteria

Impression: Transcribed

Date: No acute 04/16/2019 findings. 13:10 Finalized

<b Date: r/> Resident 04/16/2019 Radiologist: 13:11
Attending Radiologist: Manohar Renteria MD
Finalizing Radiologist: Manohar Renteria MD
Transcribed Date: 04/16/2019 13:10
Finalized Date: 04/16/2019 13:11

</td> Pelvis AP (PACSIMAGE <td> 04/16/2019 [place] 14:54</td><td> [facility] ) Pelvis AP Health Care Final Result </td><td><paragra Corporati on Name: jonathan CROSS, styleCode="Becky DIANNA MRN: s">(PACSIMAGE [id number] Sex: F : )</paragraph><br/ 1960 >
Final Location: F Result Admitting

Physician: Name: LIZETT CROSS SALINA BUSTAMANTE Requesting
MRN: Physician: [id number] Sex: F DEREK
IVAN : 1960 RODRIGUEZ Location: F Exam: PELVIS
AP 04/16/2019 Admitting 15:38 Physician: LIZETT History: SALINA Pain. A
single Requesting frontal Physician: radiograph of DEREK LOVE the pelvis RODRIGUEZ was obtained.

There is Exam: PELVIS AP no acute 04/16/2019 15:38 fracture. There is no

dislocation. History: Pain. The patient is status

A post right single frontal hip radiograph of the hemiarthropla pelvis was sty. The obtained. bones of the

pelvis show There is no acute numerous tiny fracture. There lytic lesions is no suspicious dislocation. The for multiple patient myeloma..
is Impression: status post right Status hip post right hemiarthroplasty. hip The bones of the hemiarthropla pelvis sty.
show Findings numerous tiny suspicious lytic lesions for multiple suspicious for myeloma. multiple myeloma.. Resident

Radiologist: Impression: Attending

Radiologist: Status post Manohar Renteria right hip MD hemiarthroplasty. Finalizing Radiologist:

Manohar Husain MD suspicious for Transcribed multiple myeloma. Date: 04/16/2019

<b 16:00 r/> Resident Finalized Radiologist: Date:
04/16/2019 Attending 16:02 Radiologist: Manohar Renteria MD
Finalizing Radiologist: Manohar Renteria MD
Transcribed Date: 04/16/2019 16:00
Finalized Date: 04/16/2019 16:02

</td> LS Spine (PACSIMAGE <td> 04/20/2019 [place] Without 10:35</td><td> [place] Contrast-C ) Spine Without Health Care T Final Result Contrast-CT Corporation Name: </td><td><orquidea CROSS, ph DIANNA MRN: styleCode="Becky [id number] Sex: s">(PACSIMAGE F : 1960 )</paragraph><br/ Location: F >
Final Admitting Result Physician:

EMILY BHATIA Name: TAY, Requesting DIANNA Physician:
MRN: DEREK [id number] Sex: F LOVE
RODRIGUEZ : 1960 Exam: CT LS Location: F SPINE C-
04/20/2019 Admitting 11:00 Physician: EMILY BHATIA HISTORY:
Multiple Requesting sclerosis, Physician: pain, rule DEREK OLVE out RODRIGUEZ pathologic

fracture Exam: CT LS SPINE C- 04/20/2019 COMPARISON: 11:00 MRI of the

lumbosacral CLINICAL spine dated HISTORY: Multiple 04/15/2019 sclerosis, pain, rule out TECHNIQUE: pathologic Routine
axial CT of fracture the

lumbosacral COMPARISON: spine without MRI of the IV contrast lumbosacral spine utilizing 1 dated 04/15/2019 mm axial slices.

Coronal and TECHNIQUE: sagittal

reconstructio Routine axial ns are CT of the submitted for lumbosacral spine evaluation. without IV contrast FINDINGS:
Alignment utilizing 1 mm and curvature axial slices. of the Coronal and lumbosacral sagittal spine is reconstructions unremarkable.
There is no are submitted evidence of for evaluation. acute fracture or

subluxation FINDINGS: to the

visualized Alignment and lumbosacral curvature of the spine. lumbosacral spine Extensive is unremarkable. diffuse
permeative There is no mixed lytic evidence of acute and sclerotic fracture or appearance to subluxation to the osseous the structures
compatible visualized with the lumbosacral history of spine. Extensive myelofibrosis diffuse .. Multilevel permeative mixed degenerative
changes are lytic and present and sclerotic incompletely appearance to the assessed and osseous better structures characterized compatible on MRI of
the with the history lumbosacral of spine myelofibrosis.. obtained on Multilevel 04/15/2019. degenerative There is no changes evidence of
are significant present and bony spinal incompletely canal assessed and narrowing. better characterized IMPRESSION:
1. No on MRI of the evidence of lumbosacral spine acute obtained on fracture or 04/15/2019. There traumatic
malalignment is no evidence to the of significant visualized bony spinal canal lumbosacral narrowing. spine. 2. Extensive

diffuse IMPRESSION: permeative

mixed lytic 1. No and sclerotic evidence of acute appearance fracture or to the traumatic osseous malalignment to structures
compatible the visualized with the lumbosacral history of spine. myelofibrosis

2. ... Extensive diffuse permeative mixed Resident lytic and Radiologist: sclerotic Monty appearance Silvio
to MD Resident the osseous Radiologistt structures Attending compatible with Radiologist: the history of Milad Cullen myelofibrosis... Finalizing

<b Radiologist: r/>

<br/ Milad Cullen >

MD Resident Transcribed Radiologist: Date: Monty 04/20/2019 Silvio RG 11:40 Resident Finalized Radiologistt Date:
04/20/2019 Attending 13:06 Radiologist: Milad Cullen MD
Finalizing Radiologist: Milad Cullen MD
Transcribed Date: 04/20/2019 11:40
Finalized Date: 04/20/2019 13:06

</td> LS Spine (PACSIMAGE <td> 04/15/2019 [place] With&W/Out 13:13</td><td> LS [place] Contrast-M ) Spine With&W/Out [facility] [place] Final Result Contrast-[facility] Corporation Name: </td><td>jacob CROSS, jonathan BUSTAMANTE MRN: styleCode="Italic [id number] Sex: s">(PACSIMAGE F : 1960 )</paragraph><br/ Location: F >
Final Admitting Result Physician:

EMERGENCY Name: OMERO CROSS Requesting
MRN: Physician: [id number] Sex: F CEDRICK
LANOIX : 1960 Exam: MRI LS Location: F SPINE C+/C-
04/15/2019 Admitting 21:54 Physician: CLINICAL EMERGENCY SERVICE STATEMENT:
Lumbosacral Requesting and sacral Physician: pain and CEDRICK LANOIX tenderness. Motor

weakness. Exam: MRI LS Fever SPINE C+/C- following 04/15/2019 21:54 recent hip patient.

TECHNIQUE: CLINICAL Multiplanar STATEMENT: multi Lumbosacral and sequential MR sacral pain and imaging of tenderness. the lumbar
spine was Motor weakness. obtained Fever following before and recent hip after patient. intravenous

administratio TECHNIQUE: n of Multiplanar multi contrast. sequential MR Contrast imaging of the dose: 7 cc lumbar gadavist
spine COMPARISON: was obtained MRI lumbar before and after spine intravenous 06/16/2015 administration FINDINGS:
BONE AND of contrast. BONE MARROW: Contrast dose: 7 There is cc gadavist diffuse

marrow signal COMPARISON: MRI abnormality, lumbar spine similar to 06/16/2015 the prior

study. The S5 FINDINGS: segment of

the sacrum BONE AND BONE and the MARROW: There is coccyx are diffuse marrow not included signal on these abnormality, images. Small
rounded similar to the lesions are prior study. The noted in L1, S5 segment of the L2 and L5, sacrum and unchanged and
the favored to coccyx are not reflect included on these hemangiomas. images. Small ALIGNMENT: rounded lesions The spinal
alignment is are noted in L1, maintained. L2 and L5, INTERVERTEBRA unchanged and L DISCS: The favored to L4/5 reflect intervertebra
l disc is hemangiomas. desiccated
and mildly ALIGNMENT: The narrowed. spinal alignment SPINAL CORD is maintained. and EPIDURAL:
The conus INTERVERTEBRAL medullaris is DISCS: The L4/5 normal in intervertebral size, disc is signal and desiccated position.
and EXTRASPINAL: mildly narrowed. The
paraspinal SPINAL CORD and soft tissues EPIDURAL: The are conus medullaris unremarkable. is normal in size, ENHANCEMENT:
signal After the and position. administratio
n of EXTRASPINAL: The contrast, paraspinal soft there is no tissues are abnormal unremarkable. enhancement.
There is ENHANCEMENT: no After the significant administration of neural contrast, there foraminal is no narrowing or
spinal abnormal canal enhancement. stenosis.

IMPRESSION: There is no 1. Diffuse significant marrow signal neural foraminal abnormality narrowing or is present, spinal nonspecific
canal in etiology stenosis. and unchanged

compared to IMPRESSION: the prior
1. study. 2. Diffuse marrow No evidence signal for vertebral abnormality is discitis/oste present, omyelitis or nonspecific epidural
in abscess. etiology and unchanged Resident compared to the Radiologist: prior study. Attending
Radiologist: 2. No evidence Devyn Tellez for vertebral MD discitis/osteomye Finalizing litis or epidural Radiologist:
Devyn Tellez abscess. Transcribed

<b Date: r/> Resident 04/15/2019 Radiologist: 22:33
Finalized Attending Date: Radiologist: 04/15/2019 Devyn Tellez MD 22:40
Finalizing Radiologist: Devyn Tellez MD
Transcribed Date: 04/15/2019 22:33
Finalized Date: 04/15/2019 22:40

</td> Hip (PACSIMAGE <td> 04/15/2019 [place] Right- 15:25</td><td> [facility] Hip Right- [facility] Final Result </td><td><paragra Corporati on Name: jonathan CROSS, styleCode="Italic DIANNA MRN: s">(PACSIMAGE [id number] Sex: F : )</paragraph><br/ 1960 >
Final Location: F Result Admitting

Physician: Name: TAY EMERGENCY DIANNA SERVICE
MRN: Requesting [id number] Sex: F Physician:
CEDRICK : 1960 LANO[place] Location: F Exam: US HIP
RIGHT Admitting 04/15/2019 Physician: 16:27 EMERGENCY SERVICE INDICATION:
Status post Requesting 11/29/2018 Physician: partial right CEDRICK LANOIX hip replacement.

Fever and Exam: US HIP pain. RIGHT 04/15/2019 COMPARISON: 16:27 None

TECHNIQUE: INDICATION: Grayscale Status post sonogram of 11/29/2018 partial the right hip right hip with Doppler replacement. supplementati
on. The Fever and pain. left hip was also imaged

for COMPARISON: None comparison. Static images

are TECHNIQUE: submitted for Grayscale review. sonogram of the FINDINGS: right hip with No right Doppler effusion. In supplementation. one image a
2.7 cm The left hip complex was also imaged collection is for comparison. seen at the Static images are level of the
right femoral submitted for neck which is review. not specific

and could be FINDINGS: related to

postsurgical No right changes are effusion. In one noted. image a 2.7 cm Incidental complex note of a collection is small left
effusion. seen at the level of the right IMPRESSION: femoral neck 2.7 cm which is not complex specific collection at
and the right could be related femoral neck to postsurgical which is changes are not specific noted. and could

reflect Incidental note postsurgical of a small left changes in effusion. the right hip without

joint IMPRESSION: effusion

Left hip 2.7 cm effusion complex collection at the Resident right femoral Radiologist: neck which is Xenia
Caro RG not specific and Resident could reflect Radiologistt postsurgical Attending changes in the Radiologist: right Analia Mcdermott
hip MD without joint Finalizing effusion Radiologist:

Analia Mcdermott Left hip effusion MD Transcribed

<b Date: r/> Resident 04/15/2019 Radiologist: 16:22 Xenia Elizondo MD Finalized Resident Date: Radiologistt 04/15/2019
18:11 Attending Radiologist: Analia Mcdermott MD
Finalizing Radiologist: Analia Mcdermott MD
Transcribed Date: 04/15/2019 16:22
Finalized Date: 04/15/2019 18:11

</td> ID Date Data Source [id number] 04/23/2019 11:24:51 AM EDT [facility] [place] [id number] Name Value Range Interpretation Description Data Sup porting Code Source(s) Document(s ) Leukocytes 25.4 k/mm3 4.8-10 <td> 04/23/2019 [place] [#/volume] in .8 05:44</td><td> [facility] Blood by k/mm3 WBC [facility] Automated </td><td><Scribz count raph styleCode="Bold "> 25.4 H </paragraph>
(4.8-10.8) k/mm3 </td> Hematocrit 25.6 % 37.0-4 <td> 04/23/2019 [place] [Volume 7.0 % 05:44</td><td> [facility] Fraction] of HCT [facility] Blood by </td><td><Scribz Automated raph count styleCode="Bold "> 25.6 L </paragraph>
(37.0-47.0) % </td> Hemoglobin 7.5 g/dL 12.0-1 <td> 04/23/2019 [place] [Mass/volume] 6.0 05:44</td><td> [place] in Blood g/dL HGB [facility] </td><td><Scribz raph styleCode="Bold "> 7.5 L </paragraph>
(12.0-16.0) g/dL </td> Erythrocytes 2.46 m/mm3 3.90-5 <td> 04/23/2019 [facility] r [#/volume] in .20 05:44</td><td> County Blood m/mm3 RBC Health Care </td><td><Scribz raph styleCode="Bold "> 2.46 L </paragraph>
(3.90-5.20) m/mm3 </td> Platelet mean 12.5 fL 9.8-12 <td> 04/23/2019 [facility] r volume .8 fL 05:44</td><td> [facility] [Entitic MPV </td><td> Health Care volume] in [facility] Blood by 12.5 Automated count
(9.8-12.8) fL </td> Erythrocyte 104.1 fL 81.0-9 <td> 04/23/2019 [place] mean 9.0 fL 05:44</td><td> [facility] corpuscular MCV [facility] volume </td><td><Scribz [Entitic raph volume] by styleCode="Bold Automated "> count 104.1 H </paragraph>
(81.0-99.0) fL </td> Erythrocyte 30.5 pg 27.0-3 <td> 04/23/2019 [place] mean 1.5 pg 05:44</td><td> [facility] corpuscular MCH </td><td> Health Care hemoglobin [facility] [Entitic mass] 30.5 by Automated count
(27.0-31.5) pg </td> Erythrocyte 29.3 % 32.0-3 <td> 04/23/2019 [place] mean 6.0 % 05:44</td><td> [facility] corpuscular MCHC [facility] hemoglobin </td><td><Scribz concentration raph [Mass/volume] styleCode="Bold in Blood from "> Fetus by 29.3 Automated L count </paragraph>
(32.0-36.0) % </td> Erythrocyte 20.5 % 11.5-1 <td> 04/23/2019 [place] distribution 4.5 % 05:44</td><td> County width [Entitic RDW Health [facility] volume] by </td><td><Scribz Automated raph count styleCode="Bold "> 20.5 H </paragraph>
(11.5-14.5) % </td> Lymphocytes 31.0 % 17.0-5 <td> 04/16/2019 [place] [#/volume] in 0.0 % 07:40</td><td> [facility] Blood by Lymphocytes Health Care Automated </td><td> Corporation count 31.0
(17.0-50.0) % </td> Monocytes/Leuk 17.0 % 0.0-11 <td> 04/16/2019 [facility] er ocytes [Pure .0 % 07:40</td><td> County number Monocytes. Health Care fraction] in </td><td><Scribz Blood by raph Automated styleCode="Bold count "> 17.0 H </paragraph>
(0.0-11.0) % </td> Platelets 96 k/mm3 160-41 <td> 04/23/2019 [place] [#/volume] in 0 05:44</td><td> [facility] Blood by k/mm3 Platelet Count Health Care Automated </td><td><selene [place] count raph styleCode="Bold "> 96 L </paragraph>
(160-410) k/mm3 </td> Neutrophils 43.0 % 40.0-7 <td> 04/16/2019 [place] [#] in Body 6.0 % 07:40</td><td> [facility] fluid by Neutrophils Health Care Manual count </td><td> Corporation 43.0
(40.0-76.0) % </td> Basophils 0.0 % 0.0-2. <td> 04/16/2019 [place] [#/volume] in 0 % 07:40</td><td> [facility] Blood by Basophils Health Care Automated </td><td> Corporation count 0.0
(0.0-2.0) % </td> Metamyelocytes 2.0 % % <td> 04/16/2019 [facility] er [#/volume] in 07:40</td><td> [facility] Blood by Metamyelocytes Health Care Manual count </td><td><Scribz raph styleCode="Bold "> 2.0 * AB </paragraph>
% </td> Basophils+Eosi 0.0 % 0.0-5. <td> 04/16/2019 [facility] er nophils+Monocy 0 % 07:40</td><td> [facility] jose daniel [#/volume] Eosinophils Health Care in Blood by </td><td> Corporation Automated count 0.0
(0.0-5.0) % </td> Anisocytosis Moderate <td> 04/16/2019 [place] [Presence] in 07:40</td><td> [facility] Blood by Light Anisocytosis Health Care microscopy </td><td> [place] Moderate
</td> Myelocytes 5.0 % % <td> 04/16/2019 [place] [#/volume] in 07:40</td><td> [facility] Blood by Myelocyte Health Care Manual count </td><td><Scribz raph styleCode="Bold "> 5.0 * AB </paragraph>
% </td> Blasts/100 2.0 % % <td> 04/16/2019 [place] leukocytes in 07:40</td><td> [facility] Body fluid by Blast Health Care Manual count </td><td><Scribz raph styleCode="Bold "> 2.0 * AB </paragraph>
% </td> Polychromasia Slight <td> 04/16/2019 [facility] r [Presence] in 07:40</td><td> [facility] Blood by Light Polychromasia Health Care microscopy </td><td> [place] Slight
</td> Basophilic Occasional <td> 04/16/2019 [place] stippling 07:40</td><td> [place] [Presence] in Basophilic Health Care Blood by Light Stippling [place] microscopy </td><td> Occasional
</td> Sodium 136 mEq/L 135-14 <td> 04/23/2019 [place] [Moles/volume] 5 05:44</td><td> [place] in Serum or mEq/L Sodium-Serum Health Care Plasma </td><td> [place] 136
(135-145) mEq/L </td> Glucose 64 mg/dL 70-105 <td> 04/23/2019 [place] [Mass/volume] mg/dL 05:44</td><td> [place] in Blood Glucose-Serum Health Care </td><td><Scribz raph styleCode="Bold "> 64 L </paragraph>
(70-105) mg/dL </td> Potassium 4.8 mEq/L 3.5-5. <td> 04/23/2019 [place] [Moles/volume] 1 05:44</td><td> [place] in Serum or mEq/L Potassium-Serum Health Care Plasma </td><td> [place] 4.8
(3.5-5.1) mEq/L </td> Carbon 22 mEq/L 22-30 <td> 04/23/2019 [place] dioxide, total mEq/L 05:44</td><td> County [Moles/volume] CO2 </td><td> Health Car e in Serum or Corporation Plasma 22
(22-30) mEq/L </td> Chloride 103 mEq/L 98-107 <td> 04/23/2019 [place] [Moles/volume] mEq/L 05:44</td><td> [place] in Serum or Chloride Health Care Plasma </td><td> [place] 103
(98-107) mEq/L </td> Urea nitrogen 36 mg/dL 6-22 <td> 04/23/2019 [facility] r [Mass/volume] mg/dL 05:44</td><td> [place] in Blood BUN Health Care </td><td><Scribz raph styleCode="Bold "> 36 H </paragraph>
(6-22) mg/dL </td> Alanine 21 U/L 6-55 <td> 04/15/2019 [place] aminotransfera U/L 12:50</td><td> County se [Enzymatic ALT (SGPT) Health Care activity/volum </td><td> Corporation e] in Serum or Plasma 21
(6-55) U/L </td> Creatinine 0.71 mg/dL 0.57-1 <td> 04/23/2019 [place] [Moles/volume] .11 05:44</td><td> County in Serum or mg/dL Creatinine. Health Care Plasma </td><td> [place] 0.71
(0.57-1.11) mg/dL </td> Aspartate 18 U/L 4-35 <td> 04/15/2019 [place] aminotransfera U/L 12:50</td><td> [place] se [Enzymatic AST (SGOT) Health Care activity/volum </td><td> Corporation e] in Serum or Plasma 18
(4-35) U/L </td> Bilirubin.tota 0.3 mg/dL 0.2-1. <td> 04/15/2019 [facility] er l 3 12:50</td><td> [facility] [Mass/volume] mg/dL Bilirubin - Health Care in Blood Total [place] </td><td> 0.3
(0.2-1.3) mg/dL </td> Proteins - 6.5 g/dL 6.4-8. <td> 04/15/2019 [place] Total 3 g/dL 12:50</td><td> [facility] Proteins - Health Care Total [place] </td><td> 6.5
(6.4-8.3) g/dL </td> Albumin 4.3 g/dL 3.4-4. <td> 04/15/2019 [place] [Mass/volume] 8 g/dL 12:50</td><td> [place] in Serum or Albumin Health Care Plasma </td><td> [place] 4.3
(3.4-4.8) g/dL </td> Calcium 9.0 mg/dL 8.6-10 <td> 04/23/2019 [place] [Mass/volume] .2 05:44</td><td> [facility] in Blood mg/dL Calcium Health Care </td><td> [place] 9.0
(8.6-10.2) mg/dL </td> Hemolysis No <td> 04/23/2019 [place] index of Serum Hemolysis 05:44</td><td> [facility] or Plasma Hemolysis Index Health Care </td><td> [place] No Hemolysis
</td> Anion gap in 11 mEq/L 7-13 <td> 04/23/2019 [place] Serum or mEq/L 05:44</td><td> [facility] Plasma Anion Gap Health Care </td><td> [place] 11
(7-13) mEq/L </td> Globulin 2.2 gm/dL 2.9-4. <td> 04/15/2019 [place] [Mass/volume] 0 12:50</td><td> [facility] in Serum gm/dL Globulin Health Care </td><td><selene [place] raph styleCode="Bold "> 2.2 L </paragraph>
(2.9-4.0) gm/dL </td> Icteric index Not Icteric <td> 04/23/[address] [facility] of Serum or 05:44</td><td> [facility] Plasma Icteric Index Health Care </td><td> [place] Not Icteric
</td> Prothrombin 12.4 secs 9.8-12 <td> 04/15/2019 [place] time (PT) .0 12:50</td><td> [facility] secs Prothrombin Health Care Time. [place] </td><td><selene raph styleCode="Bold "> 12.4 H </paragraph>
(9.8-12.0) secs </td> Lipemic index No Lipemia <td> 04/23/2019 [facility] er of Serum or 05:44</td><td> [facility] Plasma Lipemia Index Health Care </td><td> [place] No Lipemia
</td> Phosphate 4.2 mg/dL 2.3-4. <td> 04/16/2019 [place] [Mass/volume] 7 07:40</td><td> [facility] in Serum or mg/dL Inorganic Health Care Plasma Phosphorus [facility] </td><td> 4.2
(2.3-4.7) mg/dL </td> Protein 1+ (30 <td> 04/16/2019 [place] [Presence] in MG/DL) 07:12</td><td> [facility] Urine by Protein [facility] Care Automated test Qualitative [place] strip </td><td><selene raph styleCode="Bold "> 1+ (30 MG/DL) * AB </paragraph>
(NEGATIVE) </td> aPTT panel - 28.6 secs 25.0-3 <td> 04/15/2019 [place] Platelet poor 2.0 12:50</td><td> [facility] plasma secs Partial [facility] Care Thromboplastin [facility] Time </td><td> 28.6
(25.0-32.0) secs </td> Appearance of Clear <td> 04/16/2019 [facility] r Urine 07:12</td><td> [facility] Appearance Health Care </td><td> [place] Clear
(CLEAR) </td> Specific 1.018 {} 1.000- <td> 04/16/2019 [place] gravity of 1.035 07:12</td><td> [facility] Urine by Test Specific Health Care strip Grannis [place] </td><td> 1.018
(1.000-1.035) </td> Glucose Negative <td> 04/16/2019 [place] [Presence] in 07:12</td><td> [facility] Urine by Test Glucose_ Health Care strip </td><td> [place] Negative
(NEGATIVE) </td> Nitrite Negative <td> 04/16/2019 [place] [Presence] in 07:12</td><td> [facility] Urine by Test Nitrites Health Care strip </td><td> [place] Negative
(NEGATIVE) </td> Urobilinogen 0.2 mg/dL 0.0-2. <td> 04/16/2019 [place] [Presence] in 0 07:12</td><td> [facility] Urine by mg/dL Urobilinogen [facility] Care Automated test </td><td> Corporation strip 0.2
(0.0-2.0) mg/dL </td> Leukocyte Negative <td> 04/16/2019 [place] esterase 07:12</td><td> [facility] [Presence] in Leukocytes [facility] Urine by Test Esterase Corporation strip </td><td> Negative
(NEGATIVE) </td> Bacteria NONE SEEN <td> 04/16/2019 [place] [#/area] in 07:12</td><td> [facility] Urine sediment Bacteria Health Care by Microscopy </td><td> [place] high power field NONE SEEN
(NONE) /HPF </td> Epithelial RARE <td> 04/16/2019 [place] cells [#/area] <= FEW 07:12</td><td> [facility] in Urine Epithelial Health Care sediment by [employer] Automated </td><td> count RARE
/LPF
<= FEW

/LPF </td> Erythrocytes <1 <td> 04/16/2019 [place] [#/area] in 07:12</td><td> [facility] Urine sediment RBC </td><td> Health Car e by [employer] count <1
(0-2) /HPF </td> Leukocytes 1 /HPF 0-5 <td> 04/16/2019 [place] [Presence] in /HPF 07:12</td><td> [facility] Urine by WBC </td><td> Health Care Automated Corporation 1
(0-5) /HPF </td> Magnesium 2.1 mg/dL 1.6-2. <td> 04/16/2019 [place] [Mass/volume] 6 07:40</td><td> [facility] in Serum or mg/dL Magnesium Level Health Care Plasma </td><td> Corporation 2.1
(1.6-2.6) mg/dL </td> Fibrinogen 251 mg/dL 180-40 <td> 04/15/2019 [place] [Mass/volume] 0 12:50</td><td> County in Platelet mg/dL Fibrinogen Health Care poor plasma by [employer] Coagulation </td><td> assay 251
(180-400) mg/dL </td> Uric Acid 6.2 mg/dL 2.6-6. <td> 04/15/2019 [place] 0 12:50</td><td> County mg/dL Uric Acid Health Care </td><td><selene Corporation raph styleCode="Bold "> 6.2 H </paragraph>
(2.6-6.0) mg/dL </td> ID Date Data Source [id number] 09/17/2018 02:22:08 PM EST [facility] [place] [id number] Corporation Name Value Range Interpretation Description Data Source(s ) Supporting Code Document(s ) Specimen 09/13/19 <td> [place] expiration 19 23:59 09/10/2018 [facility] date of Blood 14:37</td><td> Care Specimen [place] Expiration Date </td><td> 09/13/2018 23:59
</td> SARA POLY NEG <td> [place] 09/10/2018 [facility] 14:37</td><td> Care SARA POLY Corporation </td><td> NEG
</td> ABO-Rh Type O POS <td> [place] 09/10/2018 [facility] 14:37</td><td> Care ABO-Rh Type Corporation </td><td> O POS
</td> Antibody POS <td> [place] Screen 09/10/2018 [facility] 14:37</td><td> Care Antibody Corporation Screen </td><td><para graph styleCode="Gregorio d"> POS A </paragraph><b r/></td> Specimen 09/19/19 <td> [place] expiration 19 23:59 09/16/2018 [facility] date of Blood 08:53</td><td> Care Specimen Corporation Expiration Date </td><td> 09/19/2018 23:59
</td> Antibody POS <td> [place] Screen 09/16/2018 [facility] 08:53</td><td> Care Antibody Corporation Screen </td><td><para graph styleCode="Gregorio d"> POS A </paragraph><b r/></td> ABO-Rh Type O POS <td> [place] 09/16/2018 [facility] 08:53</td><td> Care ABO-Rh Type Corporation </td><td> O POS
</td> SARA POLY NEG <td> [place] 09/16/2018 [facility] 08:53</td><td> Care SARA POLY Corporation </td><td> NEG
</td> SARA POLY NEG <td> [place] 09/16/2018 [facility] 08:53</td><td> Care SARA POLY Corporation </td><td> NEG
</td> Specimen 09/19/19 <td> [place] expiration 19 23:59 09/16/2018 [facility] date of Blood 08:53</td><td> Care Specimen Corporation Expiration Date </td><td> 09/19/2018 23:59
</td> Antibody POS <td> [place] Screen 09/16/2018 [facility] 08:53</td><td> Care Antibody Corporation Screen </td><td><para graph styleCode="Gregorio d"> POS A </paragraph><b r/></td> ABO-Rh Type O POS <td> [place] 09/16/2018 [facility] 08:53</td><td> Care ABO-Rh Type Corporation </td><td> O POS
</td> ID Date Data Source [id number] 09/17/2018 02:22:08 PM EST [facility] [place] [id number] Corporation Name Value Range Interpretation Description Data Sup porting Code Source(s) Document(s ) Chest (PACSIMAGE <td> 09/10/2018 [place] Single 14:55</td><td> County View ) Chest Single View Health Care Final Result </td><td><paragrap Corporat ion Name: ethan CROSS, styleCode="Sujata BUSTAMANTE MRN: ">(PACSIMAGE [id number] Sex: F : )</paragraph>
1960
Final Location: F Result Admitting

Physician: Name: TAYCRISPINAN SERVICE
MRN: Requesting [id number] Sex: F Physician:
LÁZARO EUGENE : 1960 Exam: Location: F CHEST SINGLE
VIEW Admitting 09/10/2018 Physician: 15:02 EMERGENCY SERVICE HISTORY: CVA
Requesting TECHNIQUE: Physician: VALORIE Bynum frontal

radiograph of Exam: CHEST SINGLE the chest VIEW 09/10/2018 COMPARISON: 15:02 Chest

portable, HISTORY: CVA 08/09/2018

FINDINGS: TECHNIQUE: Hazy and Portable, frontal streaky radiograph of the opacities chest persist at

the left COMPARISON: Chest greater than portable, right lung 08/09/2018 bases. There

is a FINDINGS: right-sided
Hazy subpulmonic and streaky effusion. opacities persist Minimal at the left blunting of greater than right the
costophrenic lung bases. sulci. There is a IMPRESSION: right-sided Hazy and subpulmonic streaky effusion. Minimal opacities at
the left blunting of the greater than costophrenic right lung sulci. bases.

Right-sided IMPRESSION: subpulmonic

effusion. Hazy and streaky opacities at the Resident left greater than Radiologist: right lung Tru Garcia
Resident bases. Right-sided Radiologist subpulmonic Attending effusion. Radiologist: Julia

<sienna Harp MD /> Resident Finalizing Radiologist: Tru Radiologist: Jose RG Resident Julia Radiologist Loyd RG
Transcribed Attending Date: Radiologist: 09/10/2018 Julia Harp 16:20 MD Finalized
Date: Finalizing 09/10/2018 Radiologist: 16:42 Julia Harp MD
Transcribed Date: 09/10/2018 16:20
Finalized Date: 09/10/2018 16:42

</td> Femur 2 (PACSIMAGE <td> 09/13/2018 [place] [facility] Rt 15:49</td><td> [facility] ) Femur 2 Views Rt Health Care Final Result </td><td><paragrap Corporat ion Name: ethan Desi CROSSde="Sujata Hargrove ">(PACSIMAGE Sex: F : )</paragraph>
1960
Final Location: F Result Admitting

Physician: Name: JUVENTINO CROSS
MRN: Requesting [id number] Sex: F Physician:
MARC : 1960 [place] Location: F Exam: FEMUR
RIGHT 2/>VWS Admitting 09/13/2018 Physician: JUVENTINO 16:20 JULIO MATHUR AP pelvis, 2
views of the Requesting right hip and Physician: MARC 5 views of BERNIE the right

femur Exam: FEMUR RIGHT Clinical 2/>VWS 09/13/2018 History: Hip 16:20 pain, MS

exacerbation, AP pelvis, 2 myelofibrosis views of the right hip and 5 views of Reference the right Exam(s):
femur Right hip x-ray dated

08/31/2018 Clinical History: Findings: Hip pain, MS Diffuse exacerbation, sclerosis of myelofibrosis the

visualized Reference bony Exam(s): Right hip structures x-ray dated compatible 08/31/2018 with

patient's Findings: underlying
history of Diffuse sclerosis myelofibrosis of the visualized . In the bony structures interim compatible however there
with is relative patient's lucency of underlying history the right of myelofibrosis. femoral head In the interim with subtle
contour however there is deformity of relative lucency the superior of the right lateral femoral head with femoral head
. subtle contour IMPRESSION: deformity of the Relative superior lateral lucency of femoral head the right
. femoral head in comparison

to the IMPRESSION: remainder the

bones which Relative lucency are diffusely of the right sclerotic. femoral head in Subtle comparison to the contour
deformity of remainder the the superior bones which are lateral right diffusely femoral head. sclerotic. Subtle Recommend contour magnetic
resonance deformity of the imaging right superior lateral hip to right femoral evaluate for head. Recommend a
insufficiency magnetic resonance fracture. imaging right hip to evaluate for a Resident insufficiency Radiologist:
Attending fracture. Radiologist: Wilber

<sienna Petersen MD />
Finalizing Resident Radiologist: Radiologist: Wilber
Nicola RG Attending Transcribed Radiologist: Date: Wilber Petersen MD 09/13/2018
16:43 Finalizing Finalized Radiologist: Date: Wilber Petersen MD 09/13/2018
16:50 Transcribed Date: 09/13/2018 16:43
Finalized Date: 09/13/2018 16:50

</td> Chest (PACSIMAGE <td> 09/10/2018 [facility] 14:55</td><td> [facility] ) Chest [facility] Final Result </td><td><paragrap Corporat ion Name: la SchmidtCotory="Sujata BUSTAMANTE MRN: ">(PACSIMAGE [id number] Sex: F : )</paragraph>
1960
Final Location: F Result Admitting

Physician: Name: CRISPIN CROSS SERVICE
MRN: Requesting [id number] Sex: F Physician:
ÁLZARO EUGENE : 1960 Exam: Location: F CHEST SINGLE
VIEW Admitting 09/10/2018 Physician: 15:02 EMERGENCY SERVICE HISTORY: CVA
Requesting TECHNIQUE: Physician: VALORIE Bynum frontal

radiograph of Exam: CHEST SINGLE the chest VIEW 09/10/2018 COMPARISON: 15:02 Chest

portable, HISTORY: CVA 08/09/2018

FINDINGS: TECHNIQUE: Hazy and Portable, frontal streaky radiograph of the opacities chest persist at

the left COMPARISON: Chest greater than portable, right lung 08/09/2018 bases. There

is a FINDINGS: right-sided
Hazy subpulmonic and streaky effusion. opacities persist Minimal at the left blunting of greater than right the
costophrenic lung bases. sulci. There is a IMPRESSION: right-sided Hazy and subpulmonic streaky effusion. Minimal opacities at
the left blunting of the greater than costophrenic right lung sulci. bases.

Right-sided IMPRESSION: subpulmonic

effusion. Hazy and streaky opacities at the Resident left greater than Radiologist: right lung Tru Garcia
Resident bases. Right-sided Radiologist subpulmonic Attending effusion. Radiologist: Julia

<br Loyd RG /> Resident Finalizing Radiologist: Tru Radiologist: Jose RG Resident Julia Radiologist Loyd RG
Transcribed Attending Date: Radiologist: 09/10/2018 Julia Harp 16:20 MD Finalized
Date: Finalizing 09/10/2018 Radiologist: 16:42 Julia Harp MD
Transcribed Date: 09/10/2018 16:20
Finalized Date: 09/10/2018 16:42

</td> Brain C (PACSIMAGE <td> 09/12/2018 [place] [facility]- 15:03</td><td> [facility] ) Brain C Spine C- Health Care Final Result [facility] Name: </td><td><paraethan Matute styleCode="Italics ">(PACSIMAGE Sex: F : 1960 )</paragraph>
Location: F
Final Admitting Result Physician:

ISABELA CONRAD Name: TAY, Requesting DIANNA Hargrove Physician:
MRN: MARC [id number] Sex: F BERNIE
Exam: MRI : 1960 BRAIN C SPINE Location: F C- 09/12/2018
16:35 Admitting CLINICAL Physician: ISABELA INDICATION: [place] MS
exacerbation Requesting Physician: MARC COMPARISON: BERNIE MRI cervical

spine Exam: MRI BRAIN C 06/12/2015. SPINE C- MRI brain 09/12/2018 16:35 06/09/2015..

TECHNIQUE: CLINICAL Multiplanar INDICATION: MS and multiecho exacerbation MRI of the

brain and COMPARISON: MRI cervical cervical spine spine 06/12/2015. MRI without brain 06/09/2015.. intravenous contrast. The

patient was TECHNIQUE: unable to

tolerate Multiplanar and this study multiecho MRI of and there is the brain and motion cervical spine artifact and
incomplete without study. intravenous Contrast was contrast. The not patient was unable administered to tolerate because of
this patient study and there is tolerance. motion artifact and incomplete FINDINGS: study. MRI brain:
Contrast Extensive was not regions of administered abnormal because of patient T2/FLAIR tolerance. signal in the

cerebral FINDINGS: white matter

and a small MRI brain: focus in the Extensive regions right of abnormal cerebellar T2/FLAIR signal in white matter the in a pattern
cerebral and white matter and a distribution small focus in the compatible right cerebellar with the
provided white matter in a clinical pattern and history of distribution multiple compatible with sclerosis. the The overall
provided pattern, clinical history extent and of multiple number of sclerosis. The lesions does overall not appear
pattern, significantly extent and number changed of lesions does compared to not appear 06/09/2015. significantly Contrast was
not changed compared administered to 06/09/2015. for this Contrast was not study and administered contrast
for enhancement this study and cannot be contrast assessed. enhancement cannot There is be assessed. There moderate
generalized is moderate cerebral and generalized cerebellar cerebral and atrophy. cerebellar There is no atrophy. There acute
ischemic is no acute infarct, mass ischemic infarct, effect or mass effect or midline midline shift. shift.

MRI cervical MRI cervical spine: spine: Incomplete Incomplete MRI of the MRI of the cervical spine cervical with spine with
sagittal sagittal T2 T2 and FLAIR and FLAIR sequences sequences obtained. obtained. Extensive signal Extensive abnormality signal
in abnormality the cervical in the spinal cord is cervical incompletely spinal cord assessed. There is is
incompletely no evidence of assessed. severe spinal There is no canal stenosis or evidence of cord compression.. severe spinal canal

stenosis or IMPRESSION: cord

compression.. MRI brain: Extensive regions IMPRESSION: of abnormal MRI brain: T2/FLAIR signal in Extensive the regions of
cerebral abnormal white matter and a T2/FLAIR small focus in the signal in the right cerebellar cerebral
white matter white matter in a and a small pattern and focus in the distribution right compatible with cerebellar the white matter
provided in a pattern clinical history and of multiple distribution sclerosis. The compatible overall with the
pattern, provided extent and number clinical of lesions does history of not appear multiple significantly sclerosis.
The overall changed compared pattern, to 06/09/2015. extent and

number of MRI cervical lesions does spine: Incomplete not appear MRI of the significantly cervical spine changed with compared to
sagittal 06/09/2015. T2 and FLAIR MRI sequences cervical obtained. spine: Extensive signal Incomplete abnormality MRI of the
in cervical the cervical spine with spinal cord is sagittal T2 incompletely and FLAIR assessed. sequences obtained.

<br Extensive /> Resident signal Radiologist: abnormality
in the Attending cervical Radiologist: spinal cord Stacy Mejia MD is
incompletely Finalizing assessed. Radiologist: Stacy Mejia MD Resident
Radiologist: Transcribed Date: Attending 09/12/2018 18:46 Radiologist:
Stacy Mejia Finalized Date: 09/12/2018 18:54 Finalizing Radiologist:

</td> Stacy Mejia MD Transcribed Date: 09/12/2018 18:46 Finalized Date: 09/12/2018 18:54 Thoracic (PACSIMAGE <td> 09/13/2018 [place] [facility] 12:39</td><td> [facility] ) Thoracic Spine Health Care Contrst-M Final Result [facility] Contrst-MRI [facility] on [place] Name: </td><td><paragrap ethan CROSS styleCode="Italics ">(PACSIMAGE Sex: F : 1960 )</paragraph>
Location: F
Final Admitting Result Physician:

JUVENTINO BAILEY Name: KAREEN CROSS Requesting
MRN: Physician: [id number] Sex: F MAURICE ISLAS
Exam: MRI : 1960 T SPINE C+/C- Location: F 09/13/2018
13:37 Admitting INDICATION: Physician: JUVENTINO MATHUR exacerbation
Requesting TECHNIQUE: Physician: MAURICE aSlaslandamaso ISLAS multi-sequenc

e MR imaging Exam: MRI T SPINE of the C+/C- 09/13/2018 thoracic 13:37 spine was

performed INDICATION: MS without and exacerbation with

intravenous TECHNIQUE: gadolinium.

CONTRAST: Multiplanar 7 cc of multi-sequence MR Gadavist imaging of the COMPARISON: thoracic spine was MRI thoracic
spine performed 06/12/2015 without and with FINDINGS: intravenous Vertebral gadolinium. body height

and alignment CONTRAST: are
7 cc maintained. of Gadavist There is

diffuse COMPARISON: MRI hypointense thoracic spine and T2/STIR 06/12/2015 heterogeneous

osseous bone FINDINGS: marrow
signal Vertebral body throughout height and the thoracic alignment are spine, maintained. There similar to is mildly
diffuse progressed hypointense and from prior T2/STIR exam. There heterogeneous is diffuse osseous bone abnormal marrow contrast
signal enhancement throughout the throughout thoracic spine, the thoracic similar to mildly spine. progressed Intervertebra
from l disc spaces prior exam. There are is diffuse preserved. No abnormal contrast spinal cord enhancement compression.
Redemonstrate throughout the d extensive thoracic spine. T2/STIR Intervertebral hyperintensit disc spaces are ies
throughout preserved. No the spinal cord visualized compression. spinal cord Redemonstrated compatible extensive with
patient's T2/STIR history of hyperintensities multiple throughout the sclerosis. visualized spinal Marked cord splenomegaly.
Incompletely compatible with evaluated patient's history deformity of of multiple the left sclerosis. Marked posterior
sixth rib splenomegaly. possibly Incompletely representing evaluated sequela of deformity of the surgery or left posterior prior
multiloculate sixth rib possibly d left representing thoracic sequela of surgery collection. or prior multiloculated IMPRESSION:
1. Extensive left thoracic spinal cord collection. signal

abnormality IMPRESSION: as described
1. compatible Extensive spinal with provided cord signal history of abnormality as multiple described sclerosis. compatible 2. Diffuse
with bone marrow provided history signal of multiple abnormality sclerosis. with
2. extensive Diffuse bone contrast marrow signal enhancement, abnormality with which may extensive contrast represent
hematologic enhancement, dyscrasia or which may known represent myelofibrosis hematologic . A dyscrasia or known neoplastic
process myelofibrosis. A cannot be neoplastic process excluded. cannot be Clinical excluded. Clinical correlation
suggested. correlation 4. Marked suggested. splenomegaly.
4. Marked Resident splenomegaly. Radiologist: Adelfo

<sienna Israel MD /> Resident Resident Radiologist: Mariet Adelfo Attending Jhonatan RG Radiologist: Resident Salvatore Baires MD
Finalizing Attending Radiologist: Radiologist: Salvatore Yarbrough MD, MD
Transcribed Finalizing Date: Radiologist: Salvatore 09/13/2018 Linnea RG 16:07
Finalized Transcribed Date: Date: 09/13/2018 16:07 09/13/2018
17:09 Finalized Date: 09/13/2018 17:09

</td> Pelvis AP (PACSIMAGE <td> 09/13/2018 [place] 15:49</td><td> [facility] Pelvis AP Health Care Final Result </td><td><paragrap Corporat ion Name: Jerry Schmidt="Sujata Hargrove ">(PACSIMAGE Sex: F : )</paragraph>
1960
Final Location: F Result Admitting

Physician: Name: JUVENTINO CROSS
MRN: Requesting [id number] Sex: F Physician:
MARC : 1960 [place] Location: F Exam: PELVIS
AP 09/13/2018 Admitting 16:13 Physician: JUVENTINO AP pelvis, 2 JULIO MATHUR views of the
right hip and Requesting 5 views of Physician: MARC the right BERNIE femur

Clinical Exam: PELVIS AP History: Hip 09/13/2018 16:13 pain, MS exacerbation,

myelofibrosis AP pelvis, 2 views of the right Reference hip and 5 views of Exam(s): the right Right hip
femur x-ray dated 08/31/2018

Findings: Clinical History: Diffuse Hip pain, MS sclerosis of exacerbation, the myelofibrosis visualized

bony Reference structures Exam(s): Right hip compatible x-ray dated with 08/31/2018 patient's

underlying Findings: history of
myelofibrosis Diffuse sclerosis . In the of the visualized interim bony structures however there compatible is relative
with lucency of patient's the right underlying history femoral head of myelofibrosis. with subtle In the interim contour
deformity of however there is the superior relative lucency lateral of the right femoral head femoral head with .
IMPRESSION: subtle contour Relative deformity of the lucency of superior lateral the right femoral head femoral head
. in comparison to the

remainder the IMPRESSION: bones which

are diffusely Relative lucency sclerotic. of the right Subtle femoral head in contour comparison to the deformity of
the superior remainder the lateral right bones which are femoral head. diffusely Recommend sclerotic. Subtle magnetic contour resonance
imaging right deformity of the hip to superior lateral evaluate for right femoral a head. Recommend insufficiency
fracture. magnetic resonance imaging right hip Resident to evaluate for a Radiologist: insufficiency Attending
Radiologist: fracture. Wilber Petersen MD

<br Finalizing />
Radiologist: Resident Wilber Radiologist: Nicola RG
Transcribed Attending Date: Radiologist: 09/13/2018 Wilber Petersen MD 16:43
Finalized Finalizing Date: Radiologist: 09/13/2018 Wilber Petersen MD 16:50
Transcribed Date: 09/13/2018 16:43
Finalized Date: 09/13/2018 16:50

</td> Hip (PACSIMAGE <td> 09/16/2018 [place] [facility] 12:20</td><td> [facility] [place] Contrast ) Without Contrast Health Care Rt-MRI Final Result [facility] Name: </td><td><ethan Hatch styleCode="Italics ">(PACSIMAGE Sex: F : 1960 )</paragraph>
Location: F
Final Admitting Result Physician:

JUVENTINO BAILEY Name: KAREEN CROSS DIANNA Hargrove Requesting
MRN: Physician: [id number] Sex: F CONCHA LANIER
Exam: MRI : 1960 HIP RT C- Location: F 09/16/2018
13:27 Admitting MRI of the Physician: JUVENTINO right hip JULIO MATHUR HISTORY: MS
exacerbation. Requesting Rule out Physician: CONCHA LANIER femoral neck

fracture.. Exam: MRI HIP RT Magnetic C- 09/16/2018 resonance 13:27 imaging of

the right hip MRI of the right was performed hip utilizing

coronal HISTORY: MS inversion exacerbation. Rule recovery as out occult femoral well as neck fracture.. sagittal,

axial and Magnetic coronal resonance imaging fast spin of the right hip echo. was performed There is utilizing diffuse
heterogeneous coronal inversion loss of recovery as well expected T1 as sagittal, axial marrow signal and coronal throughout
fast the spin echo. visualized

osseous There is diffuse structures, heterogeneous loss which may of expected T1 reflect marrow signal changes from
the patient's throughout the known visualized osseous myelofibrosis structures, which or underlying may reflect hematologic
dyscrasia. changes from the There is patient's known asymmetricall myelofibrosis or y increased underlying edema within
the right hematologic femoral dyscrasia. head, neck

and There is intertrochant asymmetrically lexx region. increased edema There is a within the right subtle linear femoral low signal
head, linear neck and fracture line intertrochanteric within the region. There is a superolateral subtle linear right
femoral head, low signal linear which likely fracture line reflects a within the subchondral superolateral insufficiency right type
femoral fracture. head, which likely There is an reflects a additional subchondral linear low insufficiency signal
fracture type fracture. line There is an extending additional linear through the low signal base of the fracture right greater
line trochanter, extending through consistent the base of the with an right greater avulsion type trochanter, fracture.
The muscle consistent with an bulk around avulsion type the hips and fracture. pelvis is

grossly The muscle bulk atrophic. around the hips There is and pelvis is increased grossly atrophic. edema within
the right There is greater than increased edema left gluteus within the right medius and greater than left minimus gluteus muscles,
medius right and minimus iliopsoas muscles, right muscle and iliopsoas muscle the bilateral and the bilateral adductor
muscles, adductor muscles, which reflect which reflect changes from changes from patient's patient's known known
history of history of multiple multiple sclerosis. sclerosis. Additionally, Additionally, there is a there is a chronic chronic
high-grade high-grade tear tear of the of the right right quadratus femoris quadratus which appears femoris which
appears retracted retracted proximally from proximally its attachment at from its the attachment at intertrochanteric the
intertrochant crest. There is lexx crest. an associated There is an focus of signal associated abnormality which focus of
signal follows abnormality heterogeneous which marrow signal on follows all sequences, and heterogeneous may marrow signal
reflect on all heterotopic sequences, ossification. and may There is reflect surrounding low heterotopic signal ossification.
There is intensity on all surrounding signals reflects low signal fibrotic changes, intensity on which are all signals
in reflects close proximation fibrotic to the right changes, sciatic nerve. which are

in close No high-grade proximation loss of articular to the right cartilage. sciatic

nerve. IMPRESSION: No high-grade
1. loss of Asymmetrically articular increased edema cartilage. within the right IMPRESSION: femoral head, 1.
Asymmetricall neck and y increased intertrochanteric edema within region, likely the right associated with femoral head, the neck and
acute intertrochant subchondral lexx region, insufficiency likely fracture of the associated superolateral with the
acute right femoral head subchondral and the acute insufficiency avulsion type fracture of fracture through the
superolateral the base of the right right greater femoral head trochanter. and the acute

avulsion type 2. Chronic fracture high-grade tear of through the the right base of the quadratus femoris right greater muscle trochanter.
with 2. Chronic associated high-grade heterotopic tear of the ossification and right fibrotic changes, quadratus
femoris which are in muscle with close proximation associated to the right heterotopic sciatic nerve. ossification Correlate and fibrotic
with changes, possible which are in symptomatology of close sciatica. proximation

to the right 3. Grossly sciatic atrophic muscle nerve. bulk around the Correlate hips and pelvis with possible with symptomatolog
diffuse y of intramuscular sciatica. edema, as 3. Grossly described in the atrophic body the report, muscle bulk
around the which may reflect hips and changes from the pelvis with patient's known diffuse history of intramuscular
edema, as multiple described in sclerosis. the body the report,

<br which may />

reflect Resident changes from Radiologist: Tao the patient's Shanta RG Resident known history Radiologist of multiple
sclerosis. Attending Radiologist: Resident Wilber Petersen MD Radiologist:
Tao Graves MD Resident Radiologist: Radiologist Wilber Petersen MD Attending
Radiologist: Transcribed Date: Wilber 09/16/2018 15:04 Nicola RG
Finalizing Finalized Date: Radiologist: 09/16/2018 15:10 Wilber Petersen MD

</td> Transcribed Date: 09/16/2018 15:04 Finalized Date: 09/16/2018 15:10 Hip Rt (PACSIMAGE <td> 09/13/2018 [place] 09/19 [facility] 15:49</td><td> [facility] [place] ) Rt 09/19 [facility] Care Final Result </td><td><paragrap Corporat ion Name: h TAY, styleCode="Sujata Hargrove ">(PACSIMAGE Sex: F : )</paragraph>
1960
Final Location: F Result Admitting

Physician: Name: JUVENTINO CROSS
MRN: Requesting [id number] Sex: F Physician:
MARC : 1960 [place] Location: F Exam: HIP
RIGHT 2-3 Admitting VIEWS Physician: JUVENTINO 09/13/2018 JULIO MATHUR 16:14
AP pelvis, 2 Requesting views of the Physician: MARC right hip and BERNIE 5 views of

the right Exam: HIP RIGHT femur 2-3 VIEWS Clinical 09/13/2018 16:14 History: Hip pain, MS

exacerbation, AP pelvis, 2 myelofibrosis views of the right hip and 5 views of Reference the right Exam(s):
femur Right hip x-ray dated

08/31/2018 Clinical History: Findings: Hip pain, MS Diffuse exacerbation, sclerosis of myelofibrosis the

visualized Reference bony Exam(s): Right hip structures x-ray dated compatible 08/31/2018 with

patient's Findings: underlying
history of Diffuse sclerosis myelofibrosis of the visualized . In the bony structures interim compatible however there
with is relative patient's lucency of underlying history the right of myelofibrosis. femoral head In the interim with subtle
contour however there is deformity of relative lucency the superior of the right lateral femoral head with femoral head
. subtle contour IMPRESSION: deformity of the Relative superior lateral lucency of femoral head the right
. femoral head in comparison

to the IMPRESSION: remainder the

bones which Relative lucency are diffusely of the right sclerotic. femoral head in Subtle comparison to the contour
deformity of remainder the the superior bones which are lateral right diffusely femoral head. sclerotic. Subtle Recommend contour magnetic
resonance deformity of the imaging right superior lateral hip to right femoral evaluate for head. Recommend a
insufficiency magnetic resonance fracture. imaging right hip to evaluate for a Resident insufficiency Radiologist:
Attending fracture. Radiologist: Wilber

<sienna Petersen MD />
Finalizing Resident Radiologist: Radiologist: Wilber
Nicola RG Attending Transcribed Radiologist: Date: Wilber Petersen MD 09/13/2018
16:43 Finalizing Finalized Radiologist: Date: Wilber Petersen MD 09/13/2018
16:50 Transcribed Date: 09/13/2018 16:43
Finalized Date: 09/13/2018 16:50

</td> Hip (PACSIMAGE <td> 09/16/2018 [place] [facility] 12:20</td><td> [facility] [place] Contrast ) Without Contrast Health Care [facility] Final Result [facility] Name: </td><td><ethan Hatch styleCode="Italics ">(PACSIMAGE Sex: F : 1960 )</paragraph>
Location: F
Final Admitting Result Physician:

JUVENTINO BAILEY Name: KAREEN CROSS Requesting
MRN: Physician: [id number] Sex: F CONCHA LANIER
Exam: MRI : 1960 HIP RT C- Location: F 09/16/2018
13:27 Admitting MRI of the Physician: JUVENTINO right hip JULIO MATHRU HISTORY: MS
exacerbation. Requesting Rule out Physician: CONCHA LANIER femoral neck

fracture.. Exam: MRI HIP RT Magnetic C- 09/16/2018 resonance 13:27 imaging of

the right hip MRI of the right was performed hip utilizing

coronal HISTORY: MS inversion exacerbation. Rule recovery as out occult femoral well as neck fracture.. sagittal,

axial and Magnetic coronal resonance imaging fast spin of the right hip echo. was performed There is utilizing diffuse
heterogeneous coronal inversion loss of recovery as well expected T1 as sagittal, axial marrow signal and coronal throughout
fast the spin echo. visualized

osseous There is diffuse structures, heterogeneous loss which may of expected T1 reflect marrow signal changes from
the patient's throughout the known visualized osseous myelofibrosis structures, which or underlying may reflect hematologic
dyscrasia. changes from the There is patient's known asymmetricall myelofibrosis or y increased underlying edema within
the right hematologic femoral dyscrasia. head, neck

and There is intertrochant asymmetrically lexx region. increased edema There is a within the right subtle linear femoral low signal
head, linear neck and fracture line intertrochanteric within the region. There is a superolateral subtle linear right
femoral head, low signal linear which likely fracture line reflects a within the subchondral superolateral insufficiency right type
femoral fracture. head, which likely There is an reflects a additional subchondral linear low insufficiency signal
fracture type fracture. line There is an extending additional linear through the low signal base of the fracture right greater
line trochanter, extending through consistent the base of the with an right greater avulsion type trochanter, fracture.
The muscle consistent with an bulk around avulsion type the hips and fracture. pelvis is

grossly The muscle bulk atrophic. around the hips There is and pelvis is increased grossly atrophic. edema within
the right There is greater than increased edema left gluteus within the right medius and greater than left minimus gluteus muscles,
medius right and minimus iliopsoas muscles, right muscle and iliopsoas muscle the bilateral and the bilateral adductor
muscles, adductor muscles, which reflect which reflect changes from changes from patient's patient's known known
history of history of multiple multiple sclerosis. sclerosis. Additionally, Additionally, there is a there is a chronic chronic
high-grade high-grade tear tear of the of the right right quadratus femoris quadratus which appears femoris which
appears retracted retracted proximally from proximally its attachment at from its the attachment at intertrochanteric the
intertrochant crest. There is lexx crest. an associated There is an focus of signal associated abnormality which focus of
signal follows abnormality heterogeneous which marrow signal on follows all sequences, and heterogeneous may marrow signal
reflect on all heterotopic sequences, ossification. and may There is reflect surrounding low heterotopic signal ossification.
There is intensity on all surrounding signals reflects low signal fibrotic changes, intensity on which are all signals
in reflects close proximation fibrotic to the right changes, sciatic nerve. which are

in close No high-grade proximation loss of articular to the right cartilage. sciatic

nerve. IMPRESSION: No high-grade
1. loss of Asymmetrically articular increased edema cartilage. within the right IMPRESSION: femoral head, 1.
Asymmetricall neck and y increased intertrochanteric edema within region, likely the right associated with femoral head, the neck and
acute intertrochant subchondral lexx region, insufficiency likely fracture of the associated superolateral with the
acute right femoral head subchondral and the acute insufficiency avulsion type fracture of fracture through the
superolateral the base of the right right greater femoral head trochanter. and the acute

avulsion type 2. Chronic fracture high-grade tear of through the the right base of the quadratus femoris right greater muscle trochanter.
with 2. Chronic associated high-grade heterotopic tear of the ossification and right fibrotic changes, quadratus
femoris which are in muscle with close proximation associated to the right heterotopic sciatic nerve. ossification Correlate and fibrotic
with changes, possible which are in symptomatology of close sciatica. proximation

to the right 3. Grossly sciatic atrophic muscle nerve. bulk around the Correlate hips and pelvis with possible with symptomatolog
diffuse y of intramuscular sciatica. edema, as 3. Grossly described in the atrophic body the report, muscle bulk
around the which may reflect hips and changes from the pelvis with patient's known diffuse history of intramuscular
edema, as multiple described in sclerosis. the body the report,

<br which may />

reflect Resident changes from Radiologist: Tao the patient's Shanta RG Resident known history Radiologist of multiple
sclerosis. Attending Radiologist: Resident Wilber Petersen MD Radiologist:
Tao Graves MD Resident Radiologist: Radiologist Wilber Petersen MD Attending
Radiologist: Transcribed Date: Wilber 09/16/2018 15:04 Nicola RG
Finalizing Finalized Date: Radiologist: 09/16/2018 15:10 Wilber Petersen MD

</td> Transcribed Date: 09/16/2018 15:04 Finalized Date: 09/16/2018 15:10 Hip Rt (PACSIMAGE <td> 09/13/2018 [place] 2/3 [facility] 15:49</td><td> Hip [place] ) Rt 2/3 [facility] Final Result </td><td><paragrap Corporat ion Name: ethan CROSS, styleCode="Sujata Hargrove ">(PACSIMAGE Sex: F : )</paragraph>
1960
Final Location: F Result Admitting

Physician: Name: JUVENTINO CROSS
MRN: Requesting [id number] Sex: F Physician:
MARC : 1960 BERNIE Location: F Exam: HIP
RIGHT 2-3 Admitting VIEWS Physician: JUVENTINO 09/13/2018 JULIO MATHUR 16:14
AP pelvis, 2 Requesting views of the Physician: MARC right hip and BERNIE 5 views of

the right Exam: HIP RIGHT femur 2-3 VIEWS Clinical 09/13/2018 16:14 History: Hip pain, MS

exacerbation, AP pelvis, 2 myelofibrosis views of the right hip and 5 views of Reference the right Exam(s):
femur Right hip x-ray dated

08/31/2018 Clinical History: Findings: Hip pain, MS Diffuse exacerbation, sclerosis of myelofibrosis the

visualized Reference bony Exam(s): Right hip structures x-ray dated compatible 08/31/2018 with

patient's Findings: underlying
history of Diffuse sclerosis myelofibrosis of the visualized . In the bony structures interim compatible however there
with is relative patient's lucency of underlying history the right of myelofibrosis. femoral head In the interim with subtle
contour however there is deformity of relative lucency the superior of the right lateral femoral head with femoral head
. subtle contour IMPRESSION: deformity of the Relative superior lateral lucency of femoral head the right
. femoral head in comparison

to the IMPRESSION: remainder the

bones which Relative lucency are diffusely of the right sclerotic. femoral head in Subtle comparison to the contour
deformity of remainder the the superior bones which are lateral right diffusely femoral head. sclerotic. Subtle Recommend contour magnetic
resonance deformity of the imaging right superior lateral hip to right femoral evaluate for head. Recommend a
insufficiency magnetic resonance fracture. imaging right hip to evaluate for a Resident insufficiency Radiologist:
Attending fracture. Radiologist: Wilber

<sienna Petersen MD />
Finalizing Resident Radiologist: Radiologist: Wilber
Nicola RG Attending Transcribed Radiologist: Date: Wilber Petersen MD 09/13/2018
16:43 Finalizing Finalized Radiologist: Date: Wilber Petersen MD 09/13/2018
16:50 Transcribed Date: 09/13/2018 16:43
Finalized Date: 09/13/2018 16:50

</td> Femur 2 (PACSIMAGE <td> 09/13/2018 [place] Views Rt 15:49</td><td> [facility] ) Femur 2 Views Rt Health Care Final Result </td><td><paragrap Corporat ion Name: ethan CROSS styleCode="Sujata Hargrove ">(PACSIMAGE Sex: F : )</paragraph>
1960
Final Location: F Result Admitting

Physician: Name: JUVENTINO CROSS DIANNA HERNANDEZWALIA
MRN: Requesting [id number] Sex: F Physician:
[facility] : 1960 BERNIE Location: F Exam: FEMUR
RIGHT 2/>VWS Admitting 09/13/2018 Physician: JUVENTINO 16:20 JULIO MATHUR AP pelvis, 2
views of the Requesting right hip and Physician: MARC 5 views of BERNIE the right

femur Exam: FEMUR RIGHT Clinical 2/>VWS 09/13/2018 History: Hip 16:20 pain, MS

exacerbation, AP pelvis, 2 myelofibrosis views of the right hip and 5 views of Reference the right Exam(s):
femur Right hip x-ray dated

08/31/2018 Clinical History: Findings: Hip pain, MS Diffuse exacerbation, sclerosis of myelofibrosis the

visualized Reference bony Exam(s): Right hip structures x-ray dated compatible 08/31/2018 with

patient's Findings: underlying
history of Diffuse sclerosis myelofibrosis of the visualized . In the bony structures interim compatible however there
with is relative patient's lucency of underlying history the right of myelofibrosis. femoral head In the interim with subtle
contour however there is deformity of relative lucency the superior of the right lateral femoral head with femoral head
. subtle contour IMPRESSION: deformity of the Relative superior lateral lucency of femoral head the right
. femoral head in comparison

to the IMPRESSION: remainder the

bones which Relative lucency are diffusely of the right sclerotic. femoral head in Subtle comparison to the contour
deformity of remainder the the superior bones which are lateral right diffusely femoral head. sclerotic. Subtle Recommend contour magnetic
resonance deformity of the imaging right superior lateral hip to right femoral evaluate for head. Recommend a
insufficiency magnetic resonance fracture. imaging right hip to evaluate for a Resident insufficiency Radiologist:
Attending fracture. Radiologist: Wilber

jose Petersen MD />
Finalizing Resident Radiologist: Radiologist: Wilber
Nicola RG Attending Transcribed Radiologist: Date: Wilber Petersen MD 09/13/2018
16:43 Finalizing Finalized Radiologist: Date: Wilber Petersen MD 09/13/2018
16:50 Transcribed Date: 09/13/2018 16:43
Finalized Date: 09/13/2018 16:50

</td> Chest (PACSIMAGE <td> 09/10/2018 [facility] 14:55</td><td> [place] [facility] ) Chest Single View Health Care Final Result </td><td><paragrap Corporat ion Name: ethan CROSS, styleCode="Italics DIANNA MRN: ">(PACSIMAGE [id number] Sex: F : )</paragraph>
1960
Final Location: F Result Admitting

Physician: Name: CRISPIN CROSS SERVICE
MRN: Requesting [id number] Sex: F Physician:
LÁZARO EUGENE : 1960 Exam: Location: F CHEST SINGLE
VIEW Admitting 09/10/2018 Physician: 15:02 EMERGENCY SERVICE HISTORY: CVA
Requesting TECHNIQUE: Physician: VALORIE Bynum frontal

radiograph of Exam: CHEST SINGLE the chest VIEW 09/10/2018 COMPARISON: 15:02 Chest

portable, HISTORY: CVA 08/09/2018

FINDINGS: TECHNIQUE: Hazy and Portable, frontal streaky radiograph of the opacities chest persist at

the left COMPARISON: Chest greater than portable, right lung 08/09/2018 bases. There

is a FINDINGS: right-sided
Hazy subpulmonic and streaky effusion. opacities persist Minimal at the left blunting of greater than right the
costophrenic lung bases. sulci. There is a IMPRESSION: right-sided Hazy and subpulmonic streaky effusion. Minimal opacities at
the left blunting of the greater than costophrenic right lung sulci. bases.

Right-sided IMPRESSION: subpulmonic

effusion. Hazy and streaky opacities at the Resident left greater than Radiologist: right lung Tru Garcia
Resident bases. Right-sided Radiologist subpulmonic Attending effusion. Radiologist: Julia

<sienna Harp MD /> Resident Finalizing Radiologist: Tru Radiologist: Jose RG Resident Julia Radiologist Loyd RG
Transcribed Attending Date: Radiologist: 09/10/2018 Julia Harp 16:20 Finalized
Date: Finalizing 09/10/2018 Radiologist: 16:42 Julia Harp MD
Transcribed Date: 09/10/2018 16:20
Finalized Date: 09/10/2018 16:42

</td> Brain C (PACSIMAGE <td> 09/12/2018 [place] [facility] C- 15:03</td><td> [facility] MRI ) Brain C Spine C- Health Care Final Result [facility] Name: </td><td><paraethan Matute styleCode="Italics ">(PACSIMAGE Sex: F : 1960 )</paragraph>
Location: F
Final Admitting Result Physician:

ISABELA CONRAD Name: Iain CROSS Physician:
MRN: MARC [id number] Sex: F BERNIE
Exam: MRI : 1960 BRAIN C SPINE Location: F C- 09/12/2018
16:35 Admitting CLINICAL Physician: ISABELA INDICATION: [place] MS
exacerbation Requesting Physician: MARC COMPARISON: BERNIE MRI cervical

spine Exam: MRI BRAIN C 06/12/2015. SPINE C- MRI brain 09/12/2018 16:35 06/09/2015..

TECHNIQUE: CLINICAL Multiplanar INDICATION: MS and multiecho exacerbation MRI of the

brain and COMPARISON: MRI cervical cervical spine spine 06/12/2015. MRI without brain 06/09/2015.. intravenous contrast. The

patient was TECHNIQUE: unable to

tolerate Multiplanar and this study multiecho MRI of and there is the brain and motion cervical spine artifact and
incomplete without study. intravenous Contrast was contrast. The not patient was unable administered to tolerate because of
this patient study and there is tolerance. motion artifact and incomplete FINDINGS: study. MRI brain:
Contrast Extensive was not regions of administered abnormal because of patient T2/FLAIR tolerance. signal in the

cerebral FINDINGS: white matter

and a small MRI brain: focus in the Extensive regions right of abnormal cerebellar T2/FLAIR signal in white matter the in a pattern
cerebral and white matter and a distribution small focus in the compatible right cerebellar with the
provided white matter in a clinical pattern and history of distribution multiple compatible with sclerosis. the The overall
provided pattern, clinical history extent and of multiple number of sclerosis. The lesions does overall not appear
pattern, significantly extent and number changed of lesions does compared to not appear 06/09/2015. significantly Contrast was
not changed compared administered to 06/09/2015. for this Contrast was not study and administered contrast
for enhancement this study and cannot be contrast assessed. enhancement cannot There is be assessed. There moderate
generalized is moderate cerebral and generalized cerebellar cerebral and atrophy. cerebellar There is no atrophy. There acute
ischemic is no acute infarct, mass ischemic infarct, effect or mass effect or midline midline shift. shift.

MRI cervical MRI cervical spine: spine: Incomplete Incomplete MRI of the MRI of the cervical spine cervical with spine with
sagittal sagittal T2 T2 and FLAIR and FLAIR sequences sequences obtained. obtained. Extensive signal Extensive abnormality signal
in abnormality the cervical in the spinal cord is cervical incompletely spinal cord assessed. There is is
incompletely no evidence of assessed. severe spinal There is no canal stenosis or evidence of cord compression.. severe spinal canal

stenosis or IMPRESSION: cord

compression.. MRI brain: Extensive regions IMPRESSION: of abnormal MRI brain: T2/FLAIR signal in Extensive the regions of
cerebral abnormal white matter and a T2/FLAIR small focus in the signal in the right cerebellar cerebral
white matter white matter in a and a small pattern and focus in the distribution right compatible with cerebellar the white matter
provided in a pattern clinical history and of multiple distribution sclerosis. The compatible overall with the
pattern, provided extent and number clinical of lesions does history of not appear multiple significantly sclerosis.
The overall changed compared pattern, to 06/09/2015. extent and

number of MRI cervical lesions does spine: Incomplete not appear MRI of the significantly cervical spine changed with compared to
sagittal 06/09/2015. T2 and FLAIR MRI sequences cervical obtained. spine: Extensive signal Incomplete abnormality MRI of the
in cervical the cervical spine with spinal cord is sagittal T2 incompletely and FLAIR assessed. sequences obtained.

<br Extensive /> Resident signal Radiologist: abnormality
in the Attending cervical Radiologist: spinal cord Stacy Mejia MD is
incompletely Finalizing assessed. Radiologist: Stacy Mejia MD Resident
Radiologist: Transcribed Date: Attending 09/12/2018 18:46 Radiologist:
Stacy Mejia Finalized Date: 09/12/2018 18:54 Finalizing Radiologist:

</td> Stacy Mejia MD Transcribed Date: 09/12/2018 18:46 Finalized Date: 09/12/2018 18:54 Thoracic (PACSIMAGE <td> 09/13/2018 [place] [facility] 12:39</td><td> [facility] ) Thoracic Spine Health Care Contrst-M Final Result [facility] Contrst-MRI Corpor[facility] on [place] Name: </td><td><paratommyethan Lovett styleCode="Italics ">(PACSIMAGE Sex: F : 1960 )</paragraph>
Location: F
Final Admitting Result Physician:

JUVENTINO BAILEY Name: MAYO CROSSLUWALIA DIANNA Hargrove Requesting
MRN: Physician: [id number] Sex: F MAURICE ISLAS
Exam: MRI : 1960 T SPINE C+/C- Location: F 09/13/2018
13:37 Admitting INDICATION: Physician: JUVENTINO MATHUR exacerbation
Requesting TECHNIQUE: Physician: MAURICE Salaslandamaso ISLAS multi-sequenc

e MR imaging Exam: MRI T SPINE of the C+/C- 09/13/2018 thoracic 13:37 spine was

performed INDICATION: MS without and exacerbation with

intravenous TECHNIQUE: gadolinium.

CONTRAST: Multiplanar 7 cc of multi-sequence MR Gadavist imaging of the COMPARISON: thoracic spine was MRI thoracic
spine performed 06/12/2015 without and with FINDINGS: intravenous Vertebral gadolinium. body height

and alignment CONTRAST: are
7 cc maintained. of Gadavist There is

diffuse COMPARISON: MRI hypointense thoracic spine and T2/STIR 06/12/2015 heterogeneous

osseous bone FINDINGS: marrow
signal Vertebral body throughout height and the thoracic alignment are spine, maintained. There similar to is mildly
diffuse progressed hypointense and from prior T2/STIR exam. There heterogeneous is diffuse osseous bone abnormal marrow contrast
signal enhancement throughout the throughout thoracic spine, the thoracic similar to mildly spine. progressed Intervertebra
from l disc spaces prior exam. There are is diffuse preserved. No abnormal contrast spinal cord enhancement compression.
Redemonstrate throughout the d extensive thoracic spine. T2/STIR Intervertebral hyperintensit disc spaces are ies
throughout preserved. No the spinal cord visualized compression. spinal cord Redemonstrated compatible extensive with
patient's T2/STIR history of hyperintensities multiple throughout the sclerosis. visualized spinal Marked cord splenomegaly.
Incompletely compatible with evaluated patient's history deformity of of multiple the left sclerosis. Marked posterior
sixth rib splenomegaly. possibly Incompletely representing evaluated sequela of deformity of the surgery or left posterior prior
multiloculate sixth rib possibly d left representing thoracic sequela of surgery collection. or prior multiloculated IMPRESSION:
1. Extensive left thoracic spinal cord collection. signal

abnormality IMPRESSION: as described
1. compatible Extensive spinal with provided cord signal history of abnormality as multiple described sclerosis. compatible 2. Diffuse
with bone marrow provided history signal of multiple abnormality sclerosis. with
2. extensive Diffuse bone contrast marrow signal enhancement, abnormality with which may extensive contrast represent
hematologic enhancement, dyscrasia or which may known represent myelofibrosis hematologic . A dyscrasia or known neoplastic
process myelofibrosis. A cannot be neoplastic process excluded. cannot be Clinical excluded. Clinical correlation
suggested. correlation 4. Marked suggested. splenomegaly.
4. Marked Resident splenomegaly. Radiologist: Adelfo

<br Jhonatan RG /> Resident Resident Radiologist: Mariet Adelfo Attending Jhonatan RG Radiologist: Resident Salvatore Baires MD
Finalizing Attending Radiologist: Radiologist: Salvatore Yarbrough MD, MD
Transcribed Finalizing Date: Radiologist: Salvatore 09/13/2018 Linnea RG 16:07
Finalized Transcribed Date: Date: 09/13/2018 16:07 09/13/2018
17:09 Finalized Date: 09/13/2018 17:09

</td> Pelvis AP (PACSIMAGE <td> 09/13/2018 [place] 15:49</td><td> [facility] ) Pelvis AP Health Care Final Result </td><td><paragrap Corporat ion Name: ethan CROSS styleCode="Sujata Hargrove ">(PACSIMAGE Sex: F : )</paragraph>
1960
Final Location: F Result Admitting

Physician: Name: JUVENTINO CROSS
MRN: Requesting [id number] Sex: F Physician:
MARC : 1960 BERNIE Location: F Exam: PELVIS
AP 09/13/2018 Admitting 16:13 Physician: JUVENTINO AP pelvis, 2 JULIO MATHUR views of the
right hip and Requesting 5 views of Physician: MARC the right BERNIE femur

Clinical Exam: PELVIS AP History: Hip 09/13/2018 16:13 pain, MS exacerbation,

myelofibrosis AP pelvis, 2 views of the right Reference hip and 5 views of Exam(s): the right Right hip
femur x-ray dated 08/31/2018

Findings: Clinical History: Diffuse Hip pain, MS sclerosis of exacerbation, the myelofibrosis visualized

bony Reference structures Exam(s): Right hip compatible x-ray dated with 08/31/2018 patient's

underlying Findings: history of
myelofibrosis Diffuse sclerosis . In the of the visualized interim bony structures however there compatible is relative
with lucency of patient's the right underlying history femoral head of myelofibrosis. with subtle In the interim contour
deformity of however there is the superior relative lucency lateral of the right femoral head femoral head with .
IMPRESSION: subtle contour Relative deformity of the lucency of superior lateral the right femoral head femoral head
. in comparison to the

remainder the IMPRESSION: bones which

are diffusely Relative lucency sclerotic. of the right Subtle femoral head in contour comparison to the deformity of
the superior remainder the lateral right bones which are femoral head. diffusely Recommend sclerotic. Subtle magnetic contour resonance
imaging right deformity of the hip to superior lateral evaluate for right femoral a head. Recommend insufficiency
fracture. magnetic resonance imaging right hip Resident to evaluate for a Radiologist: insufficiency Attending
Radiologist: fracture. Wilber Petersen MD

<br Finalizing />
Radiologist: Resident Wilber Radiologist: Nicola RG
Transcribed Attending Date: Radiologist: 09/13/2018 Wilber Petersen MD 16:43
Finalized Finalizing Date: Radiologist: 09/13/2018 Wilber Petersen MD 16:50
Transcribed Date: 09/13/2018 16:43
Finalized Date: 09/13/2018 16:50

</td> ID Date Data Source [id number] 09/17/2018 02:22:08 PM EST [facility] [place] [id number] Name Value Range Interpretation Description Data Sup porting Code Source(s) Document(s ) Leukocytes 9.9 k/mm3 4.8-10 <td> 09/11/2018 [place] [#/volume] in .8 09:36</td><td> [facility] Blood by k/mm3 WBC </td><td> [facility] Automated count [place] 9.9
(4.8-10.8) k/mm3 </td> Hemoglobin 6.9 g/dL 12.0-1 <td> 09/11/2018 [place] [Mass/volume] 6.0 09:36</td><td> [facility] in Blood g/dL [facility] </td><td><Scribz raph styleCode="Bold "> 6.9 L </paragraph>
(12.0-16.0) g/dL
Result confirmed. Test repeated.

(12.0-16.0) g/dL </td> Erythrocytes 2.40 m/mm3 3.90-5 <td> 09/11/2018 [facility] r [#/volume] in .20 09:36</td><td> [facility] Blood m/mm3 RBC [facility] </td><td><Scribz raph styleCode="Bold "> 2.40 L </paragraph>
(3.90-5.20) m/mm3 </td> Erythrocyte 28.3 pg 27.0-3 <td> 09/11/2018 [place] mean 1.5 pg 09:36</td><td> [facility] corpuscular [facility] </td><td> Health Care hemoglobin Corporation [Entitic mass] 28.3 by Automated count
(27.0-31.5) pg </td> Erythrocyte 20.3 % 11.5-1 <td> 09/11/2018 [place] distribution 4.5 % 09:36</td><td> [facility] width [Entitic [facility] volume] by </td><td><Scribz Automated count raph styleCode="Bold "> 20.3 H </paragraph>
(11.5-14.5) % </td> Hematocrit 23.7 % 37.0-4 <td> 09/11/2018 [place] [Volume 7.0 % 09:36</td><td> [place] Fraction] of HCT [facility] Blood by </td><td><Scribz Automated count raph styleCode="Bold "> 23.7 L </paragraph>
(37.0-47.0) % </td> Erythrocyte 98.8 fL 81.0-9 <td> 09/11/2018 [place] mean 9.0 fL 09:36</td><td> [facility] corpuscular [facility] </td><td> Health Care volume [[employer] volume] by 98.8 Automated count
(81.0-99.0) fL </td> Erythrocyte 28.7 % 32.0-3 <td> 09/11/2018 [place] mean 6.0 % 09:36</td><td> [facility] corpuscular [facility] hemoglobin </td><td><Scribz concentration raph [Mass/volume] styleCode="Bold in Blood from "> Fetus by 28.7 Automated count L </paragraph>
(32.0-36.0) % </td> Lymphocytes 24.0 % 17.0-5 <td> 09/11/2018 [place] [#/volume] in 0.0 % 09:36</td><td> [facility] Blood by Lymphocytes Health Care Automated count </td><td> Corporation 24.0
(17.0-50.0) % </td> Platelet mean 13.6 fL 9.8-12 <td> 09/11/2018 [facility] r volume [Entitic .8 fL 09:36</td><td> County volume] in MPV Health [facility] Blood by </td><td><Scribz Automated count raph styleCode="Bold "> 13.6 H </paragraph>
(9.8-12.8) fL </td> Platelets 52 k/mm3 160-41 <td> 09/11/2018 [place] [#/volume] in 0 09:36</td><td> [facility] Blood by k/mm3 Platelet Count Health Care Automated count </td><td><ChangeCorpat ion raph styleCode="Bold "> 52 L </paragraph>
(160-410) k/mm3
Large Platelets occ.

(160-410) k/mm3 </td> Basophils+Eosin 0.0 % 0.0-5. <td> 09/11/[address] [facility] ophils+Monocyte 0 % 09:36</td><td> County s [#/volume] in Eosinophils Health Care Blood by </td><td> Corporation Automated count 0.0
(0.0-5.0) % </td> Monocytes/Leuko 12.0 % 0.0-11 <td> 09/11/[address] [facility] cytes [Pure .0 % 09:36</td><td> County number Monocytes. Health Care fraction] in </td><td><Scribz Blood by raph Automated count styleCode="Bold "> 12.0 H </paragraph>
(0.0-11.0) % </td> Atypical Lymphs 4.0 % % <td> 09/11/[address] [facility] 09:36</td><td> [facility] Atypical Lymphs Health Care </td><td><[employer] graph styleCode="Bold "> 4.0 * AB </paragraph>
% </td> Neutrophils [#] 44.0 % 40.0-7 <td> 09/11/[address] [facility] in Body fluid 6.0 % 09:36</td><td> [facility] by Manual count Neutrophils Health Care </td><td> [place] 44.0
(40.0-76.0) % </td> Basophils 0.0 % 0.0-2. <td> 09/11/2018 [place] [#/volume] in 0 % 09:36</td><td> [facility] Blood by Basophils Health Care Automated count </td><td> [place] 0.0
(0.0-2.0) % </td> Metamyelocytes 7.0 % % <td> 09/11/2018 [facility] [#/volume] in 09:36</td><td> [facility] Blood by Manual Metamyelocytes Health Ca re count </td><td><Scribz raph styleCode="Bold "> 7.0 * AB </paragraph>
% </td> Myelocytes 3.0 % % <td> 09/11/2018 [place] [#/volume] in 09:36</td><td> [facility] Blood by Manual Myelocyte Health Care count </td><td><Scribz raph styleCode="Bold "> 3.0 * AB </paragraph>
% </td> Poikilocytosis Slight <td> 09/11/2018 [facility] [Presence] in 09:36</td><td> [facility] Blood by Light Poikilocytosis Health Car e microscopy </td><td> [place] Slight
</td> Microcytes SLIGHT <td> 09/11/2018 [place] [Presence] in 09:36</td><td> [facility] Blood by Light Microcytic Health Care microscopy </td><td> Corporation SLIGHT
</td> Hypochromia SLIGHT <td> 09/11/2018 [place] [Presence] in 09:36</td><td> [facility] Blood by Light Hypochromia Health Care microscopy </td><td> Corporation SLIGHT
</td> Anisocytosis Moderate <td> 09/11/2018 [place] [Presence] in 09:36</td><td> [facility] Blood by Light Anisocytosis Health Care microscopy </td><td> Corporation Moderate
</td> Polychromasia SLIGHT <td> 09/11/2018 [facility] taya [Presence] in 09:36</td><td> [facility] Blood by Light Polychromasia Health Care microscopy </td><td> Corporation SLIGHT
</td> Basophilic SLIGHT <td> 09/11/2018 [place] stippling 09:36</td><td> [facility] [Presence] in Basophilic Health Care Blood by Light Stippling Corporation microscopy </td><td> SLIGHT
</td> Potassium 4.0 mEq/L 3.5-5. <td> 09/11/2018 [place] [Moles/volume] 1 09:36</td><td> [facility] in Serum or mEq/L Potassium-Serum Health Care Plasma </td><td> Corporation 4.0
(3.5-5.1) mEq/L </td> Sodium 137 mEq/L 135-14 <td> 09/11/2018 [place] [Moles/volume] 5 09:36</td><td> [facility] in Serum or mEq/L Sodium-Serum Health Care Plasma </td><td> Corporation 137
(135-145) mEq/L </td> Dacrocytes SLIGHT <td> 09/11/2018 [place] [Presence] in 09:36</td><td> [facility] Blood by Light Tear Drop Cells Health Ca re microscopy </td><td> Corporation SLIGHT
</td> Glucose 75 mg/dL 70-105 <td> 09/11/2018 [place] [Mass/volume] mg/dL 09:36</td><td> County in Blood Glucose-Serum Health Care </td><td> Corporation 75
(70-105) mg/dL </td> Chloride 105 mEq/L 98-107 <td> 09/11/2018 [place] [Moles/volume] mEq/L 09:36</td><td> County in Serum or Chloride Health Care Plasma </td><td> Corporation 105
(98-107) mEq/L </td> Urea nitrogen 25 mg/dL 6-22 <td> 09/11/2018 [facility] r [Mass/volume] mg/dL 09:36</td><td> County in Blood BUN Health Care </td><td><selene [facility] raph styleCode="Bold "> 25 H </paragraph>
(6-22) mg/dL </td> Carbon dioxide, 24 mEq/L 22-30 <td> 09/11/[address] [facility] total mEq/L 09:36</td><td> [facility] [Moles/volume] CO2 </td><td> Health Car e in Serum or Corporation Plasma 24
(22-30) mEq/L </td> Creatinine 0.82 mg/dL 0.57-1 <td> 09/11/2018 [place] [Moles/volume] .11 09:36</td><td> County in Serum or mg/dL Creatinine. Health Care Plasma </td><td> [place] 0.82
(0.57-1.11) mg/dL </td> Aspartate 15 U/L 4-35 <td> 09/11/2018 [place] aminotransferas U/L 09:36</td><td> County e [Enzymatic AST (SGOT) Health Care activity/volume </td><td> [place] ] in Serum or Plasma 15
(4-35) U/L </td> Bilirubin.total 0.7 mg/dL 0.2-1. <td> 09/11/[address] [facility] [Mass/volume] 3 09:36</td><td> County in Blood mg/dL Bilirubin - Health Care Total Corporation </td><td> 0.7
(0.2-1.3) mg/dL </td> Albumin 4.0 g/dL 3.4-4. <td> 09/11/2018 [place] [Mass/volume] 8 g/dL 09:36</td><td> [facility] in Serum or Albumin Health Care Plasma </td><td> [place] 4.0
(3.4-4.8) g/dL </td> Alanine 27 U/L 6-55 <td> 09/11/2018 [place] aminotransferas U/L 09:36</td><td> [facility] e [Enzymatic ALT (SGPT) Health Care activity/volume </td><td> [place] ] in Serum or Plasma 27
(6-55) U/L </td> Proteins - 6.3 g/dL 6.4-8. <td> 09/11/2018 [place] Total 3 g/dL 09:36</td><td> [facility] Proteins - [facility] Total [place] </td><td><selene raph styleCode="Bold "> 6.3 L </paragraph>
(6.4-8.3) g/dL </td> Globulin 2.3 gm/dL 2.9-4. <td> 09/11/2018 [place] [Mass/volume] 0 09:36</td><td> [facility] in Serum gm/dL Globulin [facility] </td><td><selene [place] raph styleCode="Bold "> 2.3 L </paragraph>
(2.9-4.0) gm/dL </td> Anion gap in 8 mEq/L 7-13 <td> 09/11/2018 [place] Serum or Plasma mEq/L 09:36</td><td> [facility] Anion Gap Health Care </td><td> [place] 8
(7-13) mEq/L </td> Lipemic index No Lipemia <td> 09/11/2018 [facility] er of Serum or 09:36</td><td> [facility] Plasma Lipemia Index [facility] </td><td> [place] No Lipemia
</td> Hemolysis index No <td> 09/11/[address] [facility] of Serum or Hemolysis 09:36</td><td> [facility] Plasma Hemolysis Index [facility] </td><td> [facility] No Hemolysis
</td> Calcium 9.2 mg/dL 8.6-10 <td> 09/11/2018 [place] [Mass/volume] .2 09:36</td><td> [facility] in Blood mg/dL Calcium [facility] </td><td> [facility] 9.2
(8.6-10.2) mg/dL </td> Phosphate 3.3 mg/dL 2.3-4. <td> 09/11/2018 [place] [Mass/volume] 7 09:36</td><td> [facility] in Serum or mg/dL Inorganic [facility] Care Plasma Phosphorus [facility] </td><td> 3.3
(2.3-4.7) mg/dL </td> aPTT panel - 26.3 secs 25.0-3 <td> 09/11/2018 [place] Platelet poor 2.0 09:36</td><td> [facility] plasma secs Partial Health Care Thromboplastin [facility] Time </td><td> 26.3
(25.0-32.0) secs </td> Prothrombin 11.3 secs 9.8-12 <td> 09/11/2018 [place] time (PT) .0 09:36</td><td> [facility] secs Prothrombin Health Care Time. [facility] </td><td> 11.3
(9.8-12.0) secs </td> Specific 1.014 {} 1.000- <td> 09/10/2018 [place] gravity of 1.035 14:37</td><td> [facility] Urine by Test Specific Health Care strip [facility] </td><td> 1.014
(1.000-1.035) </td> Appearance of Clear <td> 09/10/2018 [facility] r Urine 14:37</td><td> [facility] Appearance Health Care </td><td> [facility] Clear
(CLEAR) </td> Icteric index Not <td> 09/11/2018 [facility] r of Serum or Icteric 09:36</td><td> [facility] Plasma Icteric Index Health Care </td><td> Corporation Not Icteric
</td> Nitrite Negative <td> 09/10/2018 [place] [Presence] in 14:37</td><td> [facility] Urine by Test Nitrites Health Care strip </td><td> Corporation Negative
(NEGATIVE) </td> Protein 1+ (30 <td> 09/10/2018 [place] [Presence] in MG/DL) 14:37</td><td> [facility] Urine by Protein Health Care Automated test [employer] strip </td><td> 1+ (30 MG/DL)
(NEGATIVE) </td> Leukocyte Negative <td> 09/10/2018 [place] esterase 14:37</td><td> [facility] [Presence] in Leukocytes [facility] Urine by Test Esterase [employer] strip </td><td> Negative
(NEGATIVE) </td> Glucose Negative <td> 09/10/2018 [place] [Presence] in 14:37</td><td> [facility] Urine by Test Glucose_ Health Care strip </td><td> Corporation Negative
(NEGATIVE) </td> Urobilinogen 0.2 mg/dL 0.0-2. <td> 09/10/2018 [place] [Presence] in 0 14:37</td><td> [facility] Urine by mg/dL Urobilinogen Health Care Automated test </td><td> Corporation strip 0.2
(0.0-2.0) mg/dL </td> Erythrocytes 1 /HPF 0-2 <td> 09/10/2018 [place] [#/area] in /HPF 14:37</td><td> [facility] Urine sediment RBC </td><td> Health Car e by Automated [place] count 1
(0-2) /HPF </td> Epithelial RARE <td> 09/10/2018 [place] cells [#/area] FEW 14:37</td><td> [facility] in Urine Epithelial Health Care sediment by [employer] Automated count </td><td> RARE
/LPF
FEW

/LPF </td> Mucous RARE <td> 09/10/2018 [place] < FEW 14:37</td><td> [facility] Mucous Health Care </td><td> Corporation RARE
/LPF
< FEW

/LPF </td> Leukocytes 1 /HPF 0-5 <td> 09/10/2018 [place] [Presence] in /HPF 14:37</td><td> [facility] Urine by WBC </td><td> Health Care Automated [place] 1
(0-5) /HPF </td> Bacteria NONE SEEN <td> 09/10/2018 [place] [#/area] in 14:37</td><td> [facility] Urine sediment Bacteria Health Care by Microscopy </td><td> [place] high power field NONE SEEN
(NONE SEEN) /HPF </td> Magnesium 2.0 mg/dL 1.6-2. <td> 09/11/2018 [place] [Mass/volume] 6 09:36</td><td> County in Serum or mg/dL Magnesium Level Health Care Plasma </td><td> [place] 2.0
(1.6-2.6) mg/dL </td> Glucose 90 mg/dL 70-105 <td> 09/11/2018 [place] [Mass/volume] mg/dL 12:19</td><td> County in Capillary Glucose - Health Care blood by Finger Stick [place] Glucometer </td><td> 90
(70-105) mg/dL </td> Leukocytes 19.2 k/mm3 4.8-10 <td> 09/17/2018 [place] [#/volume] in .8 06:04</td><td> [facility] Blood by k/mm3 WBC Health Care Automated count </td><td><selene Corporat ion raph styleCode="Bold "> 19.2 H </paragraph>
(4.8-10.8) k/mm3 </td> Hematocrit 28.5 % 37.0-4 <td> 09/17/2018 [place] [Volume 7.0 % 06:04</td><td> County Fraction] of HCT Health Care Blood by </td><td><Scribz Automated count raph styleCode="Bold "> 28.5 L </paragraph>
(37.0-47.0) % </td> Hemoglobin 8.5 g/dL 12.0-1 <td> 09/17/2018 [place] [Mass/volume] 6.0 06:04</td><td> County in Blood g/dL HGB Health Care </td><td><Scribz raph styleCode="Bold "> 8.5 L </paragraph>
(12.0-16.0) g/dL </td> Erythrocytes 2.90 m/mm3 3.90-5 <td> 09/17/2018 [facility] r [#/volume] in .20 06:04</td><td> County Blood m/mm3 RBC Health Care </td><td><Scribz raph styleCode="Bold "> 2.90 L </paragraph>
(3.90-5.20) m/mm3 </td> Erythrocyte 19.1 % 11.5-1 <td> 09/17/2018 [place] distribution 4.5 % 06:04</td><td> County width [Entitic RDW Health Care volume] by </td><td><Scribz Automated count raph styleCode="Bold "> 19.1 H </paragraph>
(11.5-14.5) % </td> Erythrocyte 29.8 % 32.0-3 <td> 09/17/2018 [place] mean 6.0 % 06:04</td><td> County corpuscular MCHC Health Care hemoglobin </td><td><Scribz concentration raph [Mass/volume] styleCode="Bold in Blood from "> Fetus by 29.8 Automated count L </paragraph>
(32.0-36.0) % </td> Erythrocyte 29.3 pg 27.0-3 <td> 09/17/2018 [place] mean 1.5 pg 06:04</td><td> [facility] corpuscular MCH </td><td> Health Care hemoglobin Corporation [Entitic mass] 29.3 by Automated count
(27.0-31.5) pg </td> Erythrocyte 98.3 fL 81.0-9 <td> 09/17/2018 [place] mean 9.0 fL 06:04</td><td> [facility] corpuscular MCV </td><td> Health Care volume [Entitic Corporation volume] by 98.3 Automated count
(81.0-99.0) fL </td> Lymphocytes 9.0 % 17.0-5 <td> 09/14/2018 [place] [#/volume] in 0.0 % 06:34</td><td> [facility] Blood by Lymphocytes Health Care Automated count </td><td><selene Corporat ion raph styleCode="Bold "> 9.0 L </paragraph>
(17.0-50.0) % </td> Platelets 82 k/mm3 160-41 <td> 09/17/2018 [place] [#/volume] in 0 06:04</td><td> [facility] Blood by k/mm3 Platelet Count Health Care Automated count </td><td><selene Corporat ion raph styleCode="Bold "> 82 L </paragraph>
(160-410) k/mm3 </td> Platelet mean 12.0 fL 9.8-12 <td> 09/17/2018 [facility] r volume [Entitic .8 fL 06:04</td><td> County volume] in MPV </td><td> Health Care Blood by Corporation Automated count 12.0
(9.8-12.8) fL </td> Neutrophils [#] 66.0 % 40.0-7 <td> 09/14/2018 [facility] [address] in Body fluid 6.0 % 06:34</td><td> County by Manual count Neutrophils Health Care </td><td> Corporation 66.0
(40.0-76.0) % </td> Basophils 0.0 % 0.0-2. <td> 09/14/2018 [place] [#/volume] in 0 % 06:34</td><td> [facility] Blood by Basophils Health Care Automated count </td><td> [place] 0.0
(0.0-2.0) % </td> Basophils+Eosin 0.0 % 0.0-5. <td> 09/14/[address] [facility] ophils+Monocyte 0 % 06:34</td><td> County s [#/volume] in Eosinophils Health Care Blood by </td><td> [place] Automated count 0.0
(0.0-5.0) % </td> Monocytes/Leuko 8.0 % 0.0-11 <td> 09/14/[address] [facility] cytes [Pure .0 % 06:34</td><td> County number Monocytes. Health Care fraction] in </td><td> [place] Blood by Automated count 8.0
(0.0-11.0) % </td> Promyelocytes 1.0 % % <td> 09/13/2018 [facility] r [#/volume] in 06:08</td><td> [facility] Blood by Manual Promyelocyte Health Care count </td><td><Scribz raph styleCode="Bold "> 1.0 * AB </paragraph>
% </td> Myelocytes 8.0 % % <td> 09/14/2018 [place] [#/volume] in 06:34</td><td> [facility] Blood by Manual Myelocyte Health Care count </td><td><Scribz raph styleCode="Bold "> 8.0 * AB </paragraph>
% </td> Metamyelocytes 2.0 % % <td> 09/14/2018 [facility] er [#/volume] in 06:34</td><td> [facility] Blood by Manual Metamyelocytes Health Ca re count </td><td><Scribz raph styleCode="Bold "> 2.0 * AB </paragraph>
% </td> Atypical Lymphs 2.0 % % <td> 09/12/[address] [facility] 06:27</td><td> County Atypical Lymphs Health Care </td><td><[employer] graph styleCode="Bold "> 2.0 * AB </paragraph>
% </td> Poikilocytosis Slight <td> 09/14/2018 [facility] er [Presence] in 06:34</td><td> [facility] Blood by Light Poikilocytosis Health Car e microscopy </td><td> [place] Slight
</td> Anisocytosis Slight <td> 09/14/2018 [place] [Presence] in 06:34</td><td> [facility] Blood by Light Anisocytosis Health Care microscopy </td><td> [place] Slight
</td> Blasts/100 6.0 % % <td> 09/14/2018 [place] leukocytes in 06:34</td><td> [facility] Body fluid by Blast Health Care Manual count </td><td><Scribz raph styleCode="Bold "> 6.0 * AB </paragraph>
% </td> Hypochromia SLIGHT <td> 09/12/2018 [place] [Presence] in 06:27</td><td> [facility] Blood by Light Hypochromia Health Care microscopy </td><td> [place] SLIGHT
</td> Polychromasia SLIGHT <td> 09/12/2018 [facility] taya [Presence] in 06:27</td><td> [facility] Blood by Light Polychromasia Health Care microscopy </td><td> [place] SLIGHT
</td> Macrocytes FEW <td> 09/12/2018 [place] [Presence] in 06:27</td><td> [facility] Blood by Light Macrocytic Health Care microscopy </td><td> [place] FEW
</td> Microcytes SLIGHT <td> 09/12/2018 [place] [Presence] in 06:27</td><td> [facility] Blood by Light Microcytic Health Care microscopy </td><td> [place] SLIGHT
</td> Glucose 87 mg/dL 70-105 <td> 09/17/2018 [place] [Mass/volume] mg/dL 06:04</td><td> County in Blood Glucose-Serum Health Care </td><td> Corporation 87
(70-105) mg/dL </td> Dacrocytes Few <td> 09/13/2018 [place] [Presence] in 06:08</td><td> [facility] Blood by Light Tear Drop Cells Health Ca re microscopy </td><td> Corporation Few
</td> Basophilic SLIGHT <td> 09/11/2018 [place] stippling 09:36</td><td> County [Presence] in Basophilic Health Care Blood by Light [employer] microscopy </td><td> SLIGHT
</td> Ovalocytes Few <td> 09/14/2018 [place] [Presence] in 06:34</td><td> [facility] Blood by Light Ovalocytes Health Care microscopy </td><td> Corporation Few
</td> Chloride 111 mEq/L 98-107 <td> 09/17/2018 [place] [Moles/volume] mEq/L 06:04</td><td> County in Serum or Chloride Health Care Plasma </td><td><selene Corporation raph styleCode="Bold "> 111 H </paragraph>
(98-107) mEq/L </td> Potassium 4.1 mEq/L 3.5-5. <td> 09/17/2018 [place] [Moles/volume] 1 06:04</td><td> County in Serum or mEq/L Potassium-Serum Health Care Plasma </td><td> [place] 4.1
(3.5-5.1) mEq/L </td> Sodium 138 mEq/L 135-14 <td> 09/17/2018 [place] [Moles/volume] 5 06:04</td><td> County in Serum or mEq/L Sodium-Serum Health Care Plasma </td><td> [place] 138
(135-145) mEq/L </td> Aspartate 7 U/L 4-35 <td> 09/17/2018 [place] aminotransferas U/L 06:04</td><td> County e [Enzymatic AST (SGOT) Health Care activity/volume </td><td> [place] ] in Serum or Plasma 7
(4-35) U/L </td> Creatinine 0.73 mg/dL 0.57-1 <td> 09/17/2018 [place] [Moles/volume] .11 06:04</td><td> County in Serum or mg/dL Creatinine. Health Care Plasma </td><td> [place] 0.73
(0.57-1.11) mg/dL </td> Urea nitrogen 50 mg/dL 6-22 <td> 09/17/2018 [facility] r [Mass/volume] mg/dL 06:04</td><td> [facility] in Blood BUN Health Care </td><td><Scribz raph styleCode="Bold "> 50 H </paragraph>
(6-22) mg/dL
Note Significant Change in Values

(6-22) mg/dL </td> Carbon dioxide, 21 mEq/L 22-30 <td> 09/17/[address] [facility] total mEq/L 06:04</td><td> [facility] [Moles/volume] CO2 Health Care in Serum or </td><td><Scribz Plasma raph styleCode="Bold "> 21 L </paragraph>
(22-30) mEq/L </td> Proteins - 4.9 g/dL 6.4-8. <td> 09/17/2018 [place] Total 3 g/dL 06:04</td><td> [facility] Proteins - Health Care [employer] </td><td><[employer] raph styleCode="Bold "> 4.9 L </paragraph>
(6.4-8.3) g/dL </td> Bilirubin.total 0.5 mg/dL 0.2-1. <td> 09/17/2018 [facility] [address] [Mass/volume] 3 06:04</td><td> [facility] in Blood mg/dL Bilirubin - Health Care [employer] </td><td> 0.5
(0.2-1.3) mg/dL </td> Alanine 16 U/L 6-55 <td> 09/17/2018 [place] aminotransferas U/L 06:04</td><td> County e [Enzymatic ALT (SGPT) Health Care activity/volume </td><td> Corporation ] in Serum or Plasma 16
(6-55) U/L </td> Globulin 1.8 gm/dL 2.9-4. <td> 09/17/2018 [place] [Mass/volume] 0 06:04</td><td> County in Serum gm/dL Globulin Health Care </td><td><Scribz raph styleCode="Bold "> 1.8 L </paragraph>
(2.9-4.0) gm/dL </td> Anion gap in 6 mEq/L 7-13 <td> 09/17/2018 [place] Serum or Plasma mEq/L 06:04</td><td> [facility] Anion Gap Health Care </td><td><Scribz raph styleCode="Bold "> 6 L </paragraph>
(7-13) mEq/L </td> Calcium 8.0 mg/dL 8.6-10 <td> 09/17/2018 [place] [Mass/volume] .2 06:04</td><td> [place] in Blood mg/dL Calcium Health Care </td><td><Scribz raph styleCode="Bold "> 8.0 L </paragraph>
(8.6-10.2) mg/dL </td> Albumin 3.1 g/dL 3.4-4. <td> 09/17/2018 [place] [Mass/volume] 8 g/dL 06:04</td><td> County in Serum or Albumin Health Care Plasma </td><td><Scribz raph styleCode="Bold "> 3.1 L </paragraph>
(3.4-4.8) g/dL </td> Phosphate 2.7 mg/dL 2.3-4. <td> 09/17/2018 [place] [Mass/volume] 7 06:04</td><td> County in Serum or mg/dL Inorganic Health Care Plasma [employer] </td><td> 2.7
(2.3-4.7) mg/dL </td> Icteric index Not <td> 09/17/2018 [facility] r of Serum or Icteric 06:04</td><td> [facility] Plasma Icteric Index Health Care </td><td> [facility] Not Icteric
</td> Lipemic index No Lipemia <td> 09/17/2018 [facility] er of Serum or 06:04</td><td> [facility] Plasma Lipemia Index Health Care </td><td> [facility] No Lipemia
</td> Hemolysis index No <td> 09/17/[address] [facility] of Serum or Hemolysis 06:04</td><td> [facility] Plasma Hemolysis Index [facility] </td><td> [facility] No Hemolysis
</td> Appearance of Clear <td> 09/10/2018 [facility] r Urine 14:37</td><td> [facility] Appearance [facility] </td><td> [facility] Clear
(CLEAR) </td> aPTT panel - 24.1 secs 25.0-3 <td> 09/17/2018 [place] Platelet poor 2.0 06:04</td><td> [facility] plasma secs Partial [facility] Care Thromboplastin [facility] Time </td><td><selene raph styleCode="Bold "> 24.1 L </paragraph>
(25.0-32.0) secs </td> Prothrombin 11.3 secs 9.8-12 <td> 09/17/2018 [place] time (PT) .0 06:04</td><td> [facility] secs Prothrombin Health Care Time. [facility] </td><td> 11.3
(9.8-12.0) secs </td> Urobilinogen 0.2 mg/dL 0.0-2. <td> 09/10/2018 [place] [Presence] in 0 14:37</td><td> [facility] Urine by mg/dL Urobilinogen [facility] Automated test </td><td> Corporation strip 0.2
(0.0-2.0) mg/dL </td> Glucose Negative <td> 09/10/2018 [place] [Presence] in 14:37</td><td> [facility] Urine by Test Glucose_ Health Care strip </td><td> Corporation Negative
(NEGATIVE) </td> Protein 1+ (30 <td> 09/10/2018 [place] [Presence] in MG/DL) 14:37</td><td> [facility] Urine by Protein Health Care Automated test [employer] strip </td><td> 1+ (30 MG/DL)
(NEGATIVE) </td> Specific 1.014 {} 1.000- <td> 09/10/2018 [place] gravity of 1.035 14:37</td><td> [facility] Urine by Test Specific Health Care strip [employer] </td><td> 1.014
(1.000-1.035) </td> Leukocytes 1 /HPF 0-5 <td> 09/10/2018 [place] [Presence] in /HPF 14:37</td><td> [facility] Urine by WBC </td><td> [facility] [employer] 1
(0-5) /HPF </td> Leukocyte Negative <td> 09/10/2018 [place] esterase 14:37</td><td> [facility] [Presence] in Leukocytes [facility] Urine by Test Esterase [employer] strip </td><td> Negative
(NEGATIVE) </td> Nitrite Negative <td> 09/10/2018 [place] [Presence] in 14:37</td><td> [facility] Urine by Test Nitrites [facility] strip </td><td> Corporation Negative
(NEGATIVE) </td> Mucous RARE <td> 09/10/2018 [place] < FEW 14:37</td><td> [facility] Mucous [facility] </td><td> Corporation RARE
/LPF
< FEW

/LPF </td> Epithelial RARE <td> 09/10/2018 [place] cells [#/area] FEW 14:37</td><td> [facility] in Urine Epithelial [facility] sediment by [employer] Automated count </td><td> RARE
/LPF
FEW

/LPF </td> Bacteria NONE SEEN <td> 09/10/2018 [place] [#/area] in 14:37</td><td> [facility] Urine sediment Bacteria [facility] by Microscopy </td><td> [employer] high power field NONE SEEN
(NONE SEEN) /HPF </td> Erythrocytes 1 /HPF 0-2 <td> 09/10/2018 [place] [#/area] in /HPF 14:37</td><td> [facility] Urine sediment RBC </td><td> Health Car e by [employer] count 1
(0-2) /HPF </td> Glucose 108 mg/dL 70-105 <td> 09/17/2018 [place] [Mass/volume] mg/dL 12:50</td><td> [facility] in Capillary Glucose - [facility] blood by Finger Stick [employer] Glucometer </td><td><Snap Trends raph styleCode="Bold "> 108 H </paragraph>
(70-105) mg/dL </td> Magnesium 2.3 mg/dL 1.6-2. <td> 09/17/2018 [place] [Mass/volume] 6 06:04</td><td> [facility] in Serum or mg/dL Magnesium Level [facility] Plasma </td><td> Corporation 2.3
(1.6-2.6) mg/dL </td> Hematocrit 28.5 % 37.0-4 <td> 09/17/2018 [place] [Volume 7.0 % 06:04</td><td> [facility] Fraction] of HCT [facility] Blood by </td><td><[employer] Automated count raph styleCode="Bold "> 28.5 L </paragraph>
(37.0-47.0) % </td> Hemoglobin 8.5 g/dL 12.0-1 <td> 09/17/2018 [place] [Mass/volume] 6.0 06:04</td><td> [facility] in Blood g/dL [facility] </td><td><Scribz raph styleCode="Bold "> 8.5 L </paragraph>
(12.0-16.0) g/dL </td> Erythrocytes 2.90 m/mm3 3.90-5 <td> 09/17/2018 [facility] [#/volume] in .20 06:04</td><td> [facility] Blood m/mm3 RBC Health Care </td><td><Scribz raph styleCode="Bold "> 2.90 L </paragraph>
(3.90-5.20) m/mm3 </td> Leukocytes 19.2 k/mm3 4.8-10 <td> 09/17/2018 [place] [#/volume] in .8 06:04</td><td> [facility] Blood by k/mm3 WBC Health Care Automated count </td><td><ChangeCorpat ion raph styleCode="Bold "> 19.2 H </paragraph>
(4.8-10.8) k/mm3 </td> Erythrocyte 19.1 % 11.5-1 <td> 09/17/2018 [place] distribution 4.5 % 06:04</td><td> County width [Entitic RDW Health Care volume] by </td><td><Scribz Automated count raph styleCode="Bold "> 19.1 H </paragraph>
(11.5-14.5) % </td> Erythrocyte 29.8 % 32.0-3 <td> 09/17/2018 [place] mean 6.0 % 06:04</td><td> [facility] corpuscular MCHC Health Care hemoglobin </td><td><Scribz concentration raph [Mass/volume] styleCode="Bold in Blood from "> Fetus by 29.8 Automated count L </paragraph>
(32.0-36.0) % </td> Erythrocyte 29.3 pg 27.0-3 <td> 09/17/2018 [place] mean 1.5 pg 06:04</td><td> [facility] corpuscular MCH </td><td> Health Care hemoglobin Corporation [Entitic mass] 29.3 by Automated count
(27.0-31.5) pg </td> Erythrocyte 98.3 fL 81.0-9 <td> 09/17/2018 [place] mean 9.0 fL 06:04</td><td> [facility] corpuscular MCV </td><td> Health Care volume [Entitic Corporation volume] by 98.3 Automated count
(81.0-99.0) fL </td> Basophils+Eosin 0.0 % 0.0-5. <td> 09/14/[address] [facility] ophils+Monocyte 0 % 06:34</td><td> County s [#/volume] in Eosinophils Health Care Blood by </td><td> Corporation Automated count 0.0
(0.0-5.0) % </td> Monocytes/Leuko 8.0 % 0.0-11 <td> 09/14/[address] [facility] cytes [Pure .0 % 06:34</td><td> County number Monocytes. Health Care fraction] in </td><td> Corporation Blood by Automated count 8.0
(0.0-11.0) % </td> Lymphocytes 9.0 % 17.0-5 <td> 09/14/2018 [place] [#/volume] in 0.0 % 06:34</td><td> [facility] Blood by Lymphocytes Health Care Automated count </td><td><selene Corporat ion raph styleCode="Bold "> 9.0 L </paragraph>
(17.0-50.0) % </td> Platelets 82 k/mm3 160-41 <td> 09/17/2018 [place] [#/volume] in 0 06:04</td><td> [facility] Blood by k/mm3 Platelet Count Health Care Automated count </td><td><selene Corporat ion raph styleCode="Bold "> 82 L </paragraph>
(160-410) k/mm3 </td> Platelet mean 12.0 fL 9.8-12 <td> 09/17/2018 [facility] r volume [Entitic .8 fL 06:04</td><td> County volume] in MPV </td><td> Health Care Blood by [employer] Automated count 12.0
(9.8-12.8) fL </td> Myelocytes 8.0 % % <td> 09/14/2018 [place] [#/volume] in 06:34</td><td> [facility] Blood by Manual Myelocyte Health Care count </td><td><Scribz raph styleCode="Bold "> 8.0 * AB </paragraph>
% </td> Metamyelocytes 2.0 % % <td> 09/14/2018 [facility] er [#/volume] in 06:34</td><td> [facility] Blood by Manual Metamyelocytes Health Ca re count </td><td><Scribz raph styleCode="Bold "> 2.0 * AB </paragraph>
% </td> Atypical Lymphs 2.0 % % <td> 09/12/[address] [facility] 06:27</td><td> [facility] Atypical Lymphs Health Care </td><td><[employer] graph styleCode="Bold "> 2.0 * AB </paragraph>
% </td> Neutrophils [#] 66.0 % 40.0-7 <td> 09/14/[address] [facility] in Body fluid 6.0 % 06:34</td><td> [facility] by Manual count Neutrophils Health Care </td><td> [place] 66.0
(40.0-76.0) % </td> Basophils 0.0 % 0.0-2. <td> 09/14/2018 [place] [#/volume] in 0 % 06:34</td><td> [facility] Blood by Basophils Health Care Automated count </td><td> [place] 0.0
(0.0-2.0) % </td> Microcytes SLIGHT <td> 09/12/2018 [place] [Presence] in 06:27</td><td> [facility] Blood by Light Microcytic Health Care microscopy </td><td> [place] SLIGHT
</td> Poikilocytosis Slight <td> 09/14/2018 [facility] er [Presence] in 06:34</td><td> [facility] Blood by Light Poikilocytosis Health Car e microscopy </td><td> [place] Slight
</td> Anisocytosis Slight <td> 09/14/2018 [place] [Presence] in 06:34</td><td> [facility] Blood by Light Anisocytosis Health Care microscopy </td><td> [place] Slight
</td> Blasts/100 6.0 % % <td> 09/14/2018 [place] leukocytes in 06:34</td><td> [facility] Body fluid by Blast Health Care Manual count </td><td><Scribz raph styleCode="Bold "> 6.0 * AB </paragraph>
% </td> Promyelocytes 1.0 % % <td> [facility] [#/[facility] in 06:08</td><td> [facility] Blood by Manual Promyelocyte Health Care count </td><td><Scribz raph styleCode="Bold "> 1.0 * AB </paragraph>
% </td> Ovalocytes Few <td> 09/14/2018 [place] [Presence] in 06:34</td><td> [facility] Blood by Light Ovalocytes Health Care microscopy </td><td> [place] Few
</td> Hypochromia SLIGHT <td> 09/12/2018 [place] [Presence] in 06:27</td><td> [facility] Blood by Light Hypochromia Health Care microscopy </td><td> [place] SLIGHT
</td> Polychromasia SLIGHT <td> 09/12/2018 [facility] [Presence] in 06:27</td><td> [facility] Blood by Light Polychromasia Health Care microscopy </td><td> [place] SLIGHT
</td> Macrocytes FEW <td> 09/12/2018 [place] [Presence] in 06:27</td><td> [facility] Blood by Light Macrocytic Health Care microscopy </td><td> [place] FEW
</td> Potassium 4.1 mEq/L 3.5-5. <td> 09/17/2018 [place] [Moles/volume] 1 06:04</td><td> County in Serum or mEq/L Potassium-Serum Health Care Plasma </td><td> Corporation 4.1
(3.5-5.1) mEq/L </td> Sodium 138 mEq/L 135-14 <td> 09/17/2018 [place] [Moles/volume] 5 06:04</td><td> County in Serum or mEq/L Sodium-Serum Health Care Plasma </td><td> Corporation 138
(135-145) mEq/L </td> Glucose 87 mg/dL 70-105 <td> 09/17/2018 [place] [Mass/volume] mg/dL 06:04</td><td> County in Blood Glucose-Serum Health Care </td><td> Corporation 87
(70-105) mg/dL </td> Dacrocytes Few <td> 09/13/2018 [place] [Presence] in 06:08</td><td> [facility] Blood by Light Tear Drop Cells Health Ca re microscopy </td><td> Corporation Few
</td> Basophilic SLIGHT <td> 09/11/2018 [place] stippling 09:36</td><td> County [Presence] in Basophilic Health Care Blood by Light Stippling Corporation microscopy </td><td> SLIGHT
</td> Aspartate 7 U/L 4-35 <td> 09/17/2018 [place] aminotransferas U/L 06:04</td><td> County e [Enzymatic AST (SGOT) Health Care activity/volume </td><td> Corporation ] in Serum or Plasma 7
(4-35) U/L </td> Creatinine 0.73 mg/dL 0.57-1 <td> 09/17/2018 [place] [Moles/volume] .11 06:04</td><td> County in Serum or mg/dL Creatinine. Health Care Plasma </td><td> [place] 0.73
(0.57-1.11) mg/dL </td> Urea nitrogen 50 mg/dL 6-22 <td> 09/17/2018 [place] [Mass/volume] mg/dL 06:04</td><td> County in Blood BUN Health Care </td><td><Scribz raph styleCode="Bold "> 50 H </paragraph>
(6-22) mg/dL
Note Significant Change in Values

(6-22) mg/dL </td> Carbon dioxide, 21 mEq/L 22-30 <td> [facility]/17/[address] [facility] [address] total mEq/L 06:04</td><td> County [Moles/volume] CO2 Health Care in Serum or </td><td><Scribz Plasma raph styleCode="Bold "> 21 L </paragraph>
(22-30) mEq/L </td> Chloride 111 mEq/L 98-107 <td> 09/17/2018 [place] [Moles/volume] mEq/L 06:04</td><td> County in Serum or Chloride Health Care Plasma </td><td><Scribz raph styleCode="Bold "> 111 H </paragraph>
(98-107) mEq/L </td> Calcium 8.0 mg/dL 8.6-10 <td> 09/17/2018 [place] [Mass/volume] .2 06:04</td><td> County in Blood mg/dL Calcium Health Care </td><td><Scribz raph styleCode="Bold "> 8.0 L </paragraph>
(8.6-10.2) mg/dL </td> Albumin 3.1 g/dL 3.4-4. <td> 09/17/2018 [place] [Mass/volume] 8 g/dL 06:04</td><td> County in Serum or Albumin Health Care Plasma </td><td><Scribz raph styleCode="Bold "> 3.1 L </paragraph>
(3.4-4.8) g/dL </td> Proteins - 4.9 g/dL 6.4-8. <td> 09/17/2018 [place] Total 3 g/dL 06:04</td><td> [facility] Proteins - Health [facility] [employer] </td><td><selene raph styleCode="Bold "> 4.9 L </paragraph>
(6.4-8.3) g/dL </td> Bilirubin.total 0.5 mg/dL 0.2-1. <td> 09/17/[address] [facility] [Mass/volume] 3 06:04</td><td> [facility] in Blood mg/dL Bilirubin - [facility] [employer] </td><td> 0.5
(0.2-1.3) mg/dL </td> Alanine 16 U/L 6-55 <td> 09/17/2018 [place] aminotransferas U/L 06:04</td><td> [facility] e [Enzymatic ALT (SGPT) Health Care activity/volume </td><td> [place] ] in Serum or Plasma 16
(6-55) U/L </td> Lipemic index No Lipemia <td> 09/17/2018 [facility] er of Serum or 06:04</td><td> [facility] Plasma Lipemia Index Health [facility] </td><td> [place] No Lipemia
</td> Hemolysis index No <td> 09/17/[address] [facility] of Serum or Hemolysis 06:04</td><td> [facility] Plasma Hemolysis Index [facility] </td><td> [place] No Hemolysis
</td> Globulin 1.8 gm/dL 2.9-4. <td> 09/17/2018 [place] [Mass/volume] 0 06:04</td><td> [facility] in Serum gm/dL Globulin Health Care </td><td><selene [place] raph styleCode="Bold "> 1.8 L </paragraph>
(2.9-4.0) gm/dL </td> Anion gap in 6 mEq/L 7-13 <td> 09/17/2018 [place] Serum or Plasma mEq/L 06:04</td><td> [facility] Anion Gap Health Care </td><td><selene Corporation raph styleCode="Bold "> 6 L </paragraph>
(7-13) mEq/L </td> Appearance of Clear <td> 09/10/2018 [facility] r Urine 14:37</td><td> [facility] Appearance Health Care </td><td> [facility] Clear
(CLEAR) </td> aPTT panel - 24.1 secs 25.0-3 <td> 09/17/2018 [place] Platelet poor 2.0 06:04</td><td> [facility] plasma secs Partial Health Care Thromboplastin [facility] Time </td><td><selene raph styleCode="Bold "> 24.1 L </paragraph>
(25.0-32.0) secs </td> Prothrombin 11.3 secs 9.8-12 <td> 09/17/2018 [place] time (PT) .0 06:04</td><td> [facility] secs Prothrombin Health Care Time. [facility] </td><td> 11.3
(9.8-12.0) secs </td> Phosphate 2.7 mg/dL 2.3-4. <td> 09/17/2018 [place] [Mass/volume] 7 06:04</td><td> [facility] in Serum or mg/dL Inorganic Health Care Plasma Phosphorus [facility] </td><td> 2.7
(2.3-4.7) mg/dL </td> Icteric index Not <td> 09/17/2018 [facility] r of Serum or Icteric 06:04</td><td> [facility] Plasma Icteric Index Health Care </td><td> [facility] Not Icteric
</td> Nitrite Negative <td> 09/10/2018 [place] [Presence] in 14:37</td><td> [facility] Urine by Test Nitrites Health Care strip </td><td> [place] Negative
(NEGATIVE) </td> Urobilinogen 0.2 mg/dL 0.0-2. <td> 09/10/2018 [place] [Presence] in 0 14:37</td><td> County Urine by mg/dL Urobilinogen Health Care Automated test </td><td> Corporation strip 0.2
(0.0-2.0) mg/dL </td> Glucose Negative <td> 09/10/2018 [place] [Presence] in 14:37</td><td> [facility] Urine by Test Glucose_ Health Care strip </td><td> Corporation Negative
(NEGATIVE) </td> Protein 1+ (30 <td> 09/10/2018 [place] [Presence] in MG/DL) 14:37</td><td> [facility] Urine by Protein Health Care Automated test [employer] strip </td><td> 1+ (30 MG/DL)
(NEGATIVE) </td> Specific 1.014 {} 1.000- <td> 09/10/2018 [place] gravity of 1.035 14:37</td><td> [facility] Urine by Test Specific Health Care strip [employer] </td><td> 1.014
(1.000-1.035) </td> Bacteria NONE SEEN <td> 09/10/2018 [place] [#/area] in 14:37</td><td> [facility] Urine sediment Bacteria Health Care by Microscopy </td><td> [employer] high power field NONE SEEN
(NONE SEEN) /HPF </td> Erythrocytes 1 /HPF 0-2 <td> 09/10/2018 [place] [#/area] in /HPF 14:37</td><td> [facility] Urine sediment RBC </td><td> Health Car e by Automated Corporation count 1
(0-2) /HPF </td> Leukocytes 1 /HPF 0-5 <td> 09/10/2018 [place] [Presence] in /HPF 14:37</td><td> [facility] Urine by WBC </td><td> Health Care Automated [employer] 1
(0-5) /HPF </td> Leukocyte Negative <td> 09/10/2018 [place] esterase 14:37</td><td> County [Presence] in Leukocytes Health Care Urine by Test Esterase Corporation strip </td><td> Negative
(NEGATIVE) </td> Glucose 108 mg/dL 70-105 <td> 09/17/2018 [place] [Mass/volume] mg/dL 12:50</td><td> County in Capillary Glucose - Health Care blood by Finger Stick [employer] Glucometer </td><td><selene raph styleCode="Bold "> 108 H </paragraph>
(70-105) mg/dL </td> Magnesium 2.3 mg/dL 1.6-2. <td> 09/17/2018 [place] [Mass/volume] 6 06:04</td><td> County in Serum or mg/dL Magnesium Level Health Care Plasma </td><td> Corporation 2.3
(1.6-2.6) mg/dL </td> Mucous RARE <td> 09/10/2018 [place] < FEW 14:37</td><td> County Mucous Health Care </td><td> Corporation RARE
/LPF
< FEW

/LPF </td> Epithelial RARE <td> 09/10/2018 [place] cells [#/area] FEW 14:37</td><td> County in Urine Epithelial Health Care sediment by [employer] Automated count </td><td> RARE
/LPF
FEW

/LPF </td> ID Date Data Source [id number] 08/14/2018 10:36:35 AM EST [facility] [id number] Name Value Range Interpretation Description Data Source(s ) Supporting Code Document(s ) Antibody ID 1 POS, <td> [place] Anti-E 08/13/2018 [facility] 14:26</td><td> Care Antibody ID 1 Corporation </td><td><para graph styleCode="Gregorio d"> POS, Anti-E A </paragraph><b r/></td> ABO-Rh Type O POS <td> [place] 08/13/2018 [facility] 14:26</td><td> Care ABO-Rh Type Corporation </td><td> O POS
</td> Antibody POS <td> [place] Screen 08/13/2018 [facility] 14:26</td><td> Care Antibody Corporation Screen </td><td><para graph styleCode="Gregorio d"> POS A </paragraph><b r/></td> Specimen 08/16/20 <td> [place] expiration 18 23:59 08/13/2018 [facility] date of Blood 14:26</td><td> Care Specimen Corporation Expiration Date </td><td> 08/16/2018 23:59
</td> Antibody ID 1 POS, <td> [place] Anti-Jka 08/13/2018 [facility] 14:26</td><td> Care Antibody ID 1 Corporation </td><td><para graph styleCode="Gregorio d"> POS, Anti-Jka A </paragraph><b r/></td> SARA POLY NEG <td> [place] 08/13/2018 [facility] 14:26</td><td> Care SARA POLY Corporation </td><td> NEG
</td> Antibody ID 1 POS, <td> [place] Anti-Jka 08/13/2018 [facility] 14:26</td><td> Care Antibody ID 1 Corporation </td><td><para graph styleCode="Gregorio d"> POS, Anti-Jka A </paragraph><b r/></td> Antibody POS <td> [place] Screen 08/13/2018 [facility] 14:26</td><td> Care Antibody Corporation Screen </td><td><para graph styleCode="Gregorio d"> POS A </paragraph><b r/></td> ABO-Rh Type O POS <td> [place] 08/13/2018 [facility] 14:26</td><td> Care ABO-Rh Type Corporation </td><td> O POS
</td> SARA POLY NEG <td> [place] 08/13/2018 [facility] 14:26</td><td> Care SARA POLY Corporation </td><td> NEG
</td> Specimen 08/16/20 <td> [place] expiration 18 23:59 08/13/2018 [facility] date of Blood 14:26</td><td> Care Specimen Corporation Expiration Date </td><td> 08/16/2018 23:59
</td> Antibody ID 1 POS, <td> [place] Anti-E 08/13/2018 [facility] 14:26</td><td> Care Antibody ID 1 Corporation </td><td><para graph styleCode="Gregorio d"> POS, Anti-E A </paragraph><b r/></td> ID Date Data Source [id number] 08/14/2018 10:36:35 AM EST [facility] [place] [id number] Corporation Name Value Range Interpretation Description Data Sup porting Code Source(s) Document(s ) Chest (PACSIMAGE <td> [place] Portable 08/09/2018 [facility] ) Final 06:38</td><td> Care Result Chest Portable Corporation Name: TAY </td><td><thalia HSIEHAN MRN: agraph [id number] Sex: F styleCode="Mara : lics">(PACSIMA 1960 GE Location: F Admitting )</paragraph>< Physician: br/>
JOSE ELIAS CRAIG Final Result Requesting Physician:

CESAR Name: TAY AYAH DIANNA Exam: CHEST
PORTABLE 08/09/2018 Sex: F 07:36
EXAM: Chest : Portable 1 1960 view Location: F INDICATION:
Fever Admitting COMPARISON: Physician: 08/08/2018 JOSE ELIAS CRAIG FINDINGS:
LINES AND Requesting TUBES: None. Physician: LUNGS AND CESAR PLEURA: Hazy POTEAU and streaky

opacity Exam: CHEST persists at PORTABLE the lung 08/09/2018 bases, left 07:36 greater. Minimal

<br/ blunting of > EXAM: the Chest Portable costophrenic 1 view sulci..

HEART AND INDICATION: MEDIASTINUM: Fever Normal

allowing for COMPARISON: patient 08/08/2018 rotation.. BONES AND SOFT

TISSUES: FINDINGS: Patchy sclerosis.

IMPRESSION: LINES AND 1. Stable TUBES: None. appearance of
the chest over LUNGS AND one day. PLEURA: Hazy and streaky Resident opacity Radiologist: persists at Attending the lung Radiologist:
Andrew paulino left Miky isabel. Finalizing Minimal Radiologist: blunting of Jimmy RG costophrenic Transcribed sulci.. Date:
08/09/2018 HEART AND 10:14 MEDIASTINUM: Finalized Normal Date: allowing for 08/09/2018 patient 10:17 rotation..
BONES AND SOFT TISSUES: Patchy sclerosis.

IMPRESSION:

1. Stable appearance of the chest over one day.

<br/ >

Resident Radiologist:
Attending Radiologist: Andrew Bolaños MD
Finalizing Radiologist: Andrew Bolaños MD
Transcribed Date: 08/09/2018 10:14
Finalized Date: 08/09/2018 10:17

</td > Renal/Blad (PACSIMAGE <td> [facility] 08/09/2018 [facility] ) Final 10:53</td><td> Care Result Renal/Bladder Corporation Name: US TAY DIANNA MRN: </td><td><para [id number] Sex: F graph : styleCode="Mara 1960 lics">(PACSIMA Location: F Admitting Physician: )</paragraph>< SHUBHAM br/>
KANAPARTHY Final Result Requesting Physician:

RONAL WEI Name: TAY, Exam: US BUSTAMANTE BLADDER/RENAL
08/09/2018 11:24 Sex: F CLINICAL
INFORMATION: : Fever, CVA 1960 tenderness Location: F TECHNIQUE:
Sonogram of Admitting the kidneys Physician: and bladder SHUBHAM with bob KANAPARTHY scale images
and color Requesting Doppler flow. Physician: RONAL WEI COMPARISON: 02/25/2018.

FINDINGS: Exam: US The right BLADDER/RENAL kidney is of 08/09/2018 normal 11:24 echogenicity and size,

<br/ measuring > CLINICAL 12.0 cm in INFORMATION: longitudinal Fever, CVA dimension. No tenderness right-sided hydronephrosis

, solid mass TECHNIQUE: or calculus is Sonogram of visualized. the kidneys The left and bladder kidney is of with bob normal scale echogenicity
and size, images and measuring color Doppler 11.5 cm in flow. longitudinal

dimension. No COMPARISON: left-sided 02/25/2018. hydronephrosis , solid mass

or calculus is FINDINGS: visualized. The bladder

is collapsed The right around a Kam kidney is of catheter. normal IMPRESSION: echogenicity No evidence of and size, hydronephrosis measuring .
Resident 12.0 cm in Radiologist: longitudinal Dario dimension. No Halina right-sided Resident hydronephrosis Radiologistt , Attending
Radiologist: solid mass or Wilber Petersen calculus is MD visualized. Finalizing Radiologist:

Wilber Petersen The left MD kidney is of Transcribed normal Date: echogenicity 08/09/2018 and size, 11:24 measuring Finalized
Date: 11.5 cm in 08/09/2018 longitudinal 12:29 dimension. No left-sided hydronephrosis ,
solid mass or calculus is visualized.

The bladder is collapsed around a Kam catheter.

IMPRESSION:
No evidence of hydronephrosis .

<br/ >
Resident Radiologist: Dario Meade MD Resident Radiologistt
Attending Radiologist: Wilber Petersen MD
Finalizing Radiologist: Wilber Petersen MD
Transcribed Date: 08/09/2018 11:24
Finalized Date: 08/09/2018 12:29

</td > Chest (PACSIMAGE <td> [place] Portable 08/09/2018 [facility] ) Final 06:38</td><td> Care Result Chest Portable Corporation Name: TAY, </td><td><thalia BUSTAMANTE MRN: agraph [id number] Sex: F styleCode="Mara : lics">(PACSIMA 1960 GE Location: F Admitting )</paragraph>< Physician: br/>
JOSE ELIAS CRAIG Final Result Requesting Physician:

CESAR Name: AYAH CROSS Exam: CHEST
PORTABLE 08/09/2018 Sex: F 07:36
EXAM: Chest : Portable 1 1960 view Location: F INDICATION:
Fever Admitting COMPARISON: Physician: 08/08/2018 JOSE ELIAS CRAIG FINDINGS:
LINES AND Requesting TUBES: None. Physician: LUNGS AND CESAR PLEURA: Hazy POTEAU and streaky

opacity Exam: CHEST persists at PORTABLE the lung 08/09/2018 bases, left 07:36 greater. Minimal

<br/ blunting of > EXAM: the Chest Portable costophrenic 1 view sulci..

HEART AND INDICATION: MEDIASTINUM: Fever Normal

allowing for COMPARISON: patient 08/08/2018 rotation.. BONES AND SOFT

TISSUES: FINDINGS: Patchy sclerosis.

IMPRESSION: LINES AND 1. Stable TUBES: None. appearance of
the chest over LUNGS AND one day. PLEURA: Hazy and streaky Resident opacity Radiologist: persists at Attending the lung Radiologist:
Andrew paulino, left Miky RG greater. Finalizing Minimal Radiologist: blunting of Jimmy RG costophrenic Transcribed sulci.. Date:
08/09/2018 HEART AND 10:14 MEDIASTINUM: Finalized Normal Date: allowing for 08/09/2018 patient 10:17 rotation..
BONES AND SOFT TISSUES: Patchy sclerosis.

IMPRESSION:

1. Stable appearance of the chest over one day.

<br/ >

Resident Radiologist:
Attending Radiologist: Andrew Bolaños MD
Finalizing Radiologist: Andrew Bolaños MD
Transcribed Date: 08/09/2018 10:14
Finalized Date: 08/09/2018 10:17

</td > Renal/Blad (PACSIMAGE <td> [facility] 08/09/2018 [facility] ) Final 10:53</td><td> Care Result Renal/Bladder Corporation Name: US DIANNA CROSS MRN: </td><td><para [id number] Sex: F graph : styleCode="Mara 1960 lics">(PACSIMA Location: F Admitting Physician: )</paragraph>< SHUBHAM br/>
KANAPARTHY Final Result Requesting Physician:

RONAL WEI Name: TAY, Exam: US BUSTAMANTE BLADDER/RENAL
08/09/2018 11:24 Sex: F CLINICAL
INFORMATION: : Fever, CVA 1960 tenderness Location: F TECHNIQUE:
Sonogram of Admitting the kidneys Physician: and bladder SHUBHAM with bob KANAPARTHY scale images
and color Requesting Doppler flow. Physician: RONAL WEI COMPARISON: 02/25/2018.

FINDINGS: Exam: US The right BLADDER/RENAL kidney is of 08/09/2018 normal 11:24 echogenicity and size,

<br/ measuring > CLINICAL 12.0 cm in INFORMATION: longitudinal Fever, CVA dimension. No tenderness right-sided hydronephrosis

, solid mass TECHNIQUE: or calculus is Sonogram of visualized. the kidneys The left and bladder kidney is of with bob normal scale echogenicity
and size, images and measuring color Doppler 11.5 cm in flow. longitudinal

dimension. No COMPARISON: left-sided 02/25/2018. hydronephrosis , solid mass

or calculus is FINDINGS: visualized. The bladder

is collapsed The right around a Kam kidney is of catheter. normal IMPRESSION: echogenicity No evidence of and size, hydronephrosis measuring .
Resident 12.0 cm in Radiologist: longitudinal Dario dimension. No Halina right-sided Resident hydronephrosis Radiologistt , Attending
Radiologist: solid mass or Wilber Petersen calculus is MD visualized. Finalizing Radiologist:

Wilber Petersen The left MD kidney is of Transcribed normal Date: echogenicity 08/09/2018 and size, 11:24 measuring Finalized
Date: 11.5 cm in 08/09/2018 longitudinal 12:29 dimension. No left-sided hydronephrosis ,
solid mass or calculus is visualized.

The bladder is collapsed around a Kam catheter.

IMPRESSION:
No evidence of hydronephrosis .

<br/ >
Resident Radiologist: Dario Meade MD Resident Radiologistt
Attending Radiologist: Wilber Petesren MD
Finalizing Radiologist: Wilber Petersen MD
Transcribed Date: 08/09/2018 11:24
Finalized Date: 08/09/2018 12:29

</td > ID Date Data Source [id number] 08/14/2018 10:36:35 AM [facility] [id number] Corporation Name Value Range Interpretation Description Data Sup porting Code Source(s) Document(s ) Erythrocytes 2.77 m/mm3 3.90-5 <td> 08/14/2018 [facility] [place] [facility] [#/volume] in .20 08:24</td><td> [facility] Blood m/mm3 RBC Health Care </td><td><Scribz raph styleCode="Bold "> 2.77 L </paragraph>
(3.90-5.20) m/mm3 </td> Leukocytes 29.5 k/mm3 4.8-10 <td> 08/14/2018 [place] [#/volume] in .8 08:24</td><td> [facility] Blood by k/mm3 [facility] Automated </td><td><Scribz count raph styleCode="Bold "> 29.5 H </paragraph>
(4.8-10.8) k/mm3 </td> Erythrocyte 20.7 % 11.5-1 <td> 08/14/2018 [place] distribution 4.5 % 08:24</td><td> [facility] width [Entitic [facility] volume] by </td><td><Scribz Automated raph count styleCode="Bold "> 20.7 H </paragraph>
(11.5-14.5) % </td> Erythrocyte 96.0 fL 81.0-9 <td> 08/14/2018 [place] mean 9.0 fL 08:24</td><td> [facility] corpuscular MCV </td><td> [facility] volume [facility] [Entitic 96.0 volume] by Automated
count (81.0-99.0) fL </td> Erythrocyte 29.7 % 32.0-3 <td> 08/14/2018 [place] mean 6.0 % 08:24</td><td> [facility] corpuscular [facility] hemoglobin </td><td><Scribz concentration raph [Mass/volume] styleCode="Bold in Blood from "> Fetus by 29.7 Automated L count </paragraph>
(32.0-36.0) % </td> Hemoglobin 7.9 g/dL 12.0-1 <td> 08/14/2018 [place] [Mass/volume] 6.0 08:24</td><td> [place] in Blood g/dL [facility] </td><td><Scribz raph styleCode="Bold "> 7.9 L </paragraph>
(12.0-16.0) g/dL </td> Hematocrit 26.6 % 37.0-4 <td> 08/14/2018 [place] [Volume 7.0 % 08:24</td><td> County Fraction] of HCT [facility] Blood by </td><td><Scribz Automated raph count styleCode="Bold "> 26.6 L </paragraph>
(37.0-47.0) % </td> Erythrocyte 28.5 pg 27.0-3 <td> 08/14/2018 [place] mean 1.5 pg 08:24</td><td> [facility] corpuscular [facility]CH </td><td> Health Care hemoglobin [facility] [Entitic mass] 28.5 by Automated count
(27.0-31.5) pg </td> Platelet mean 12.8 fL 9.8-12 <td> 08/14/2018 [facility] r volume .8 fL 08:24</td><td> [facility] [Entitic MPV </td><td> Health Care volume] in [facility] Blood by 12.8 Automated count
(9.8-12.8) fL </td> Monocytes/Leuk 5.0 % 0.0-11 <td> 08/14/2018 [facility] er ocytes [Pure .0 % 08:24</td><td> County number Monocytes. Health Care fraction] in </td><td> [facility] Blood by Automated 5.0 count
(0.0-11.0) % </td> Lymphocytes 14.0 % 17.0-5 <td> 08/14/2018 [place] [#/volume] in 0.0 % 08:24</td><td> [facility] Blood by Lymphocytes [facility] Care Automated </td><td><Scribz count raph styleCode="Bold "> 14.0 L </paragraph>
(17.0-50.0) % </td> Platelets 75 k/mm3 160-41 <td> 08/14/2018 [place] [#/volume] in 0 08:24</td><td> [facility] Blood by k/mm3 Platelet Count Health Care Automated </td><td><selene [place] count raph styleCode="Bold "> 75 L </paragraph>
(160-410) k/mm3 </td> Basophils 2.0 % 0.0-2. <td> 08/14/2018 [place] [#/volume] in 0 % 08:24</td><td> [facility] Blood by Basophils [facility] Care Automated </td><td> Corporation count 2.0
(0.0-2.0) % </td> Basophils+Eosi 1.0 % 0.0-5. <td> 08/14/2018 [facility] er nophils+Monocy 0 % 08:24</td><td> [facility] jose daniel [#/volume] Eosinophils Health Care in Blood by </td><td> Corporation Automated count 1.0
(0.0-5.0) % </td> Promyelocytes 3.0 % % <td> 08/11/2018 [facility] r [#/volume] in 21:49</td><td> [facility] Blood by Promyelocyte Health Care Manual count </td><td><Scribz raph styleCode="Bold "> 3.0 * AB </paragraph>
% </td> Myelocytes 10.0 % % <td> 08/14/2018 [place] [#/volume] in 08:24</td><td> [facility] Blood by Myelocyte Health Care Manual count </td><td><selene Corporation raph styleCode="Bold "> 10.0 * AB </paragraph>
% </td> Metamyelocytes 5.0 % % <td> 08/14/2018 [facility] er [#/volume] in 08:24</td><td> [facility] Blood by Metamyelocytes Health Care Manual count </td><td><selene [place] raph styleCode="Bold "> 5.0 * AB </paragraph>
% </td> Atypical 2.0 % % <td> 08/14/2018 [place] Lymphs 08:24</td><td> [facility] Atypical Lymphs Health Care </td><td><para [place] graph styleCode="Bold "> 2.0 * AB </paragraph>
% </td> Neutrophils 60.0 % 40.0-7 <td> 08/14/2018 [place] [#] in Body 6.0 % 08:24</td><td> County fluid by Neutrophils Health Care Manual count </td><td> [place] 60.0
(40.0-76.0) % </td> Blasts/100 2.0 % % <td> 08/12/2018 [place] leukocytes in 11:01</td><td> [facility] Body fluid by Blast Health Care Manual count </td><td><selene [place] raph styleCode="Bold "> 2.0 * AB </paragraph>
% </td> Polychromasia SLIGHT <td> [facility]10/[facility] [Presence] in 07:46</td><td> [facility] Blood by Light Polychromasia Health Care microscopy </td><td> [place] SLIGHT
</td> Anisocytosis Moderate <td> 08/14/2018 [place] [Presence] in 08:24</td><td> [facility] Blood by Light Anisocytosis Health Care microscopy </td><td> [place] Moderate
</td> Poikilocytosis Slight <td> 08/12/2018 [facility] er [Presence] in 11:01</td><td> [facility] Blood by Light Poikilocytosis Health Car e microscopy </td><td> [place] Slight
</td> Ovalocytes Few <td> 08/14/2018 [place] [Presence] in 08:24</td><td> [facility] Blood by Light Ovalocytes Health Care microscopy </td><td> [place] Few
</td> Macrocytes Slight <td> 08/12/2018 [place] [Presence] in 05:50</td><td> [facility] Blood by Light Macrocytic Health Care microscopy </td><td> [place] Slight
</td> Basophilic Occasional <td> 08/08/2018 [place] stippling 15:44</td><td> County [Presence] in Basophilic Health Care Blood by Light Stippling [employer] microscopy </td><td> Occasional
</td> Potassium 3.6 mEq/L 3.5-5. <td> 08/13/2018 [place] [Moles/volume] 1 07:27</td><td> County in Serum or mEq/L Potassium-Serum Health Care Plasma </td><td> [place] 3.6
(3.5-5.1) mEq/L </td> Glucose 79 mg/dL 70-105 <td> 08/13/2018 [place] [Mass/volume] mg/dL 07:27</td><td> [place] in Blood Glucose-Serum Health Care </td><td> [place] 79
(70-105) mg/dL </td> Chloride 112 mEq/L 98-107 <td> 08/13/2018 [place] [Moles/volume] mEq/L 07:27</td><td> [facility] in Serum or Chloride Health Care Plasma </td><td><selene [place] raph styleCode="Bold "> 112 H </paragraph>
(98-107) mEq/L </td> Dacrocytes Few <td> 08/14/2018 [place] [Presence] in 08:24</td><td> County Blood by Light Tear Drop Cells Health Ca re microscopy </td><td> Corporation Few
</td> Sodium 139 mEq/L 135-14 <td> 08/13/2018 [place] [Moles/volume] 5 07:27</td><td> County in Serum or mEq/L Sodium-Serum Health Care Plasma </td><td> [place] 139
(135-145) mEq/L </td> Bilirubin.tota 0.3 mg/dL 0.2-1. <td> 08/12/2018 [facility] er l 3 05:50</td><td> County [Mass/volume] mg/dL Bilirubin - Health Care in Blood [employer] </td><td> 0.3
(0.2-1.3) mg/dL </td> Urea nitrogen 24 mg/dL 6-22 <td> 08/13/2018 [facility] r [Mass/volume] mg/dL 07:27</td><td> [place] in Blood BUN Health Care </td><td><Scribz raph styleCode="Bold "> 24 H </paragraph>
(6-22) mg/dL </td> Aspartate 12 U/L 4-35 <td> 08/12/2018 [place] aminotransfera U/L 05:50</td><td> County se [Enzymatic AST (SGOT) Health Care activity/volum </td><td> Corporation e] in Serum or Plasma 12
(4-35) U/L </td> Alanine 25 U/L 6-55 <td> 08/12/2018 [place] aminotransfera U/L 05:50</td><td> County se [Enzymatic ALT (SGPT) Health Care activity/volum </td><td> Corporation e] in Serum or Plasma 25
(6-55) U/L </td> Creatinine 0.74 mg/dL 0.57-1 <td> 08/13/2018 [place] [Moles/volume] .11 07:27</td><td> County in Serum or mg/dL Creatinine. Health Care Plasma </td><td> [place] 0.74
(0.57-1.11) mg/dL </td> Carbon 20 mEq/L 22-30 <td> 08/13/2018 [place] dioxide, total mEq/L 07:27</td><td> [facility] [Moles/volume] CO2 Health Care in Serum or </td><td><Scribz Plasma raph styleCode="Bold "> 20 L </paragraph>
(22-30) mEq/L </td> Globulin 2.3 gm/dL 2.9-4. <td> 08/12/2018 [place] [Mass/volume] 0 05:50</td><td> County in Serum gm/dL Globulin Health Care </td><td><Scribz raph styleCode="Bold "> 2.3 L </paragraph>
(2.9-4.0) gm/dL </td> Hemolysis No <td> 08/13/2018 [place] index of Serum Hemolysis 07:27</td><td> County or Plasma Hemolysis Index Health Care </td><td> [place] No Hemolysis
</td> Anion gap in 7 mEq/L 7-13 <td> 08/13/2018 [place] Serum or mEq/L 07:27</td><td> [facility] Plasma Anion Gap Health [facility] </td><td> [place] 7
(7-13) mEq/L </td> Calcium 8.4 mg/dL 8.6-10 <td> 08/13/2018 [place] [Mass/volume] .2 07:27</td><td> [facility] in Blood mg/dL Calcium Health Care </td><td><Scribz raph styleCode="Bold "> 8.4 L </paragraph>
(8.6-10.2) mg/dL </td> Albumin 3.3 g/dL 3.4-4. <td> 08/12/2018 [place] [Mass/volume] 8 g/dL 05:50</td><td> [facility] in Serum or Albumin Health Care Plasma </td><td><Scribz raph styleCode="Bold "> 3.3 L </paragraph>
(3.4-4.8) g/dL </td> Proteins - 5.6 g/dL 6.4-8. <td> 08/12/2018 [place] Total 3 g/dL 05:50</td><td> [facility] Proteins - Health Care [employer] </td><td><Snap Trends raph styleCode="Bold "> 5.6 L </paragraph>
(6.4-8.3) g/dL </td> aPTT panel - 26.0 secs 25.0-3 <td> 08/12/2018 [place] Platelet poor 2.0 05:50</td><td> [facility] plasma secs Partial [facility] Thromboplastin Corporation Time </td><td> 26.0
(25.0-32.0) secs </td> Icteric index Non Icteric <td> 08/13/[address] [facility] of Serum or 07:27</td><td> [facility] Plasma Icteric Index Health Care </td><td> [place] Non Icteric
</td> Lipemic index No Lipemia <td> 08/13/2018 [facility] of Serum or 07:27</td><td> [facility] Plasma Lipemia Index Health Care </td><td> [place] No Lipemia
</td> Phosphate 3.4 mg/dL 2.3-4. <td> 08/12/2018 [place] [Mass/volume] 7 05:50</td><td> County in Serum or mg/dL Inorganic Health Care Plasma Phosphorus [place] </td><td> 3.4
(2.3-4.7) mg/dL </td> Prothrombin 10.8 secs 9.8-12 <td> 08/12/2018 [place] time (PT) .0 05:50</td><td> County secs Prothrombin Health Care Time. [place] </td><td> 10.8
(9.8-12.0) secs </td> Protein 3+ (>=500 <td> 08/08/2018 [place] [Presence] in MG/DL 15:44</td><td> [facility] Urine by Protein Health Care Automated test Qualitative [employer] strip </td><td> 3+ (>=500 MG/DL
(NEGATIVE) </td> Urobilinogen 0.2 mg/dL 0.0-2. <td> 08/08/2018 [place] [Presence] in 0 15:44</td><td> [facility] Urine by mg/dL Urobilinogen Health Care Automated test </td><td> Corporation strip 0.2
(0.0-2.0) mg/dL </td> Specific 1.023 {} 1.000- <td> 08/08/2018 [place] gravity of 1.035 15:44</td><td> [facility] Urine by Test Specific Health Care strip [employer] </td><td> 1.023
(1.000-1.035) </td> Glucose Negative <td> 08/08/2018 [place] [Presence] in 15:44</td><td> [facility] Urine by Test Glucose_ Health Care strip </td><td> Corporation Negative
(NEGATIVE) </td> Appearance of Cloudy <td> 08/08/2018 [facility] Urine 15:44</td><td> [facility] Appearance Health Care </td><td> Corporation Cloudy
(CLEAR) </td> Nitrite Negative <td> 08/08/2018 [place] [Presence] in 15:44</td><td> [facility] Urine by Test Nitrites Health Care strip </td><td> Corporation Negative
(NEGATIVE) </td> Erythrocytes 33 /HPF 0-2 <td> 08/08/2018 [place] [#/area] in /HPF 15:44</td><td> [facility] Urine sediment RBC </td><td> Health Car e by [employer] count 33
(0-2) /HPF </td> Bacteria RARE <td> 08/08/2018 [place] [#/area] in 15:44</td><td> [facility] Urine sediment Bacteria Health Care by Microscopy </td><td> [place] high power field RARE
(NONE SEEN) /HPF </td> Leukocytes 122 /HPF 0-5 <td> 08/08/2018 [place] [Presence] in /HPF 15:44</td><td> [facility] Urine by WBC </td><td> Health Care Automated [place] 122
(0-5) /HPF </td> Leukocyte 3+ <td> 08/08/2018 [place] esterase 15:44</td><td> [facility] [Presence] in Leukocytes Health Care Urine by Test Esterase [place] strip </td><td><selene raph styleCode="Bold "> 3+ * AB </paragraph>
(NEGATIVE) </td> Epithelial RARE <td> 08/08/2018 [place] cells [#/area] FEW 15:44</td><td> County in Urine Epithelial Health Care sediment by [employer] Automated </td><td> count RARE
/LPF
FEW

/LPF </td> Fibrinogen 365 mg/dL 180-40 <td> 08/12/2018 [place] [Mass/volume] 0 05:50</td><td> County in Platelet mg/dL Fibrinogen Health Care poor plasma by Level [place] Coagulation </td><td> assay 365
(180-400) mg/dL </td> Magnesium 1.6 mg/dL 1.6-2. <td> 08/13/2018 [place] [Mass/volume] 6 07:27</td><td> [place] in Serum or mg/dL Magnesium Level Health Care Plasma </td><td> [place] 1.6
(1.6-2.6) mg/dL </td> Glucose 124 mg/dL 70-105 <td> 08/09/2018 [place] [Mass/volume] mg/dL 18:33</td><td> County in Capillary Glucose - Health Care blood by Finger Stick [place] Glucometer </td><td><Snap Trends raph styleCode="Bold "> 124 H </paragraph>
(70-105) mg/dL </td> Uric Acid 6.1 mg/dL 2.6-6. <td> 08/12/2018 [place] 0 05:50</td><td> County mg/dL Uric Acid Health Care </td><td><Scribz raph styleCode="Bold "> 6.1 H </paragraph>
(2.6-6.0) mg/dL </td> Mucous RARE <td> 08/08/2018 [place] < FEW 15:44</td><td> County Mucous Health Care </td><td> Corporation RARE
/LPF
< FEW

/LPF </td> Erythrocyte 96.0 fL 81.0-9 <td> 08/14/2018 [place] mean 9.0 fL 08:24</td><td> [facility] corpuscular MCV </td><td> Health Care volume Corporation [Entitic 96.0 volume] by Automated
count (81.0-99.0) fL </td> Hematocrit 26.6 % 37.0-4 <td> 08/14/2018 [place] [Volume 7.0 % 08:24</td><td> [place] Fraction] of HCT Health Care Blood by </td><td><Scribz Automated raph count styleCode="Bold "> 26.6 L </paragraph>
(37.0-47.0) % </td> Hemoglobin 7.9 g/dL 12.0-1 <td> 08/14/2018 [place] [Mass/volume] 6.0 08:24</td><td> [place] in Blood g/dL HGB [facility] Care </td><td><Scribz raph styleCode="Bold "> 7.9 L </paragraph>
(12.0-16.0) g/dL </td> Erythrocytes 2.77 m/mm3 3.90-5 <td> 08/14/2018 [facility] r [#/volume] in .20 08:24</td><td> County Blood m/mm3 RBC Health Care </td><td><Scribz raph styleCode="Bold "> 2.77 L </paragraph>
(3.90-5.20) m/mm3 </td> Leukocytes 29.5 k/mm3 4.8-10 <td> 08/14/2018 [place] [#/volume] in .8 08:24</td><td> County Blood by k/mm3 WBC Health Care Automated </td><td><Scribz count raph styleCode="Bold "> 29.5 H </paragraph>
(4.8-10.8) k/mm3 </td> Lymphocytes 22.0 % 17.0-5 <td> 08/12/2018 [place] [#/volume] in 0.0 % 11:01</td><td> [place] Blood by Lymphocytes Health Care Automated </td><td> Corporation count 22.0
(17.0-50.0) % </td> Platelets 75 k/mm3 160-41 <td> 08/14/2018 [place] [#/volume] in 0 08:24</td><td> [facility] Blood by k/mm3 Platelet Count Health Care Automated </td><td><Scribz count raph styleCode="Bold "> 75 L </paragraph>
(160-410) k/mm3 </td> Platelet mean Not <td> 08/13/2018 [facility] r volume Measured 07:27</td><td> [facility] [Entitic MPV Health Care volume] in </td><td><Scribz Blood by raph Automated styleCode="Bold count "> Not Measured X </paragraph>
(9.8-12.8) fL </td> Erythrocyte 20.7 % 11.5-1 <td> 08/14/2018 [place] distribution 4.5 % 08:24</td><td> [facility] width [Entitic RDW Health Care volume] by </td><td><Scribz Automated raph count styleCode="Bold "> 20.7 H </paragraph>
(11.5-14.5) % </td> Erythrocyte 29.7 % 32.0-3 <td> 08/14/2018 [place] mean 6.0 % 08:24</td><td> [facility] corpuscular [facility] hemoglobin </td><td><Scribz concentration raph [Mass/volume] styleCode="Bold in Blood from "> Fetus by 29.7 Automated L count </paragraph>
(32.0-36.0) % </td> Erythrocyte 28.5 pg 27.0-3 <td> 08/14/2018 [place] mean 1.5 pg 08:24</td><td> [facility] corpuscular MCH </td><td> Health Care hemoglobin Corporation [Entitic mass] 28.5 by Automated count
(27.0-31.5) pg </td> Metamyelocytes 10.0 % % <td> 08/12/2018 [facility] er [#/volume] in 11:01</td><td> [facility] Blood by Metamyelocytes Health Care Manual count </td><td><selene [place] raph styleCode="Bold "> 10.0 * AB </paragraph>
% </td> Atypical 3.0 % % <td> 08/12/2018 [place] Lymphs 05:50</td><td> [facility] Atypical Lymphs Health Care </td><td><para Corporation graph styleCode="Bold "> 3.0 * AB </paragraph>
% </td> Neutrophils 46.0 % 40.0-7 <td> 08/12/2018 [place] [#] in Body 6.0 % 11:01</td><td> [facility] fluid by Neutrophils Health Care Manual count </td><td> [place] 46.0
(40.0-76.0) % </td> Basophils 0.0 % 0.0-2. <td> 08/12/2018 [place] [#/volume] in 0 % 11:01</td><td> [facility] Blood by Basophils Health Care Automated </td><td> [place] count 0.0
(0.0-2.0) % </td> Basophils+Eosi 0.0 % 0.0-5. <td> 08/12/2018 [facility] er nophils+Monocy 0 % 11:01</td><td> [facility] jose daniel [#/volume] Eosinophils Health Care in Blood by </td><td> Corporation Automated count 0.0
(0.0-5.0) % </td> Monocytes/Leuk 8.0 % 0.0-11 <td> 08/12/2018 [facility] er ocytes [Pure .0 % 11:01</td><td> [facility] number Monocytes. Health Care fraction] in </td><td> [place] Blood by Automated 8.0 count
(0.0-11.0) % </td> Macrocytes Slight <td> 08/12/2018 [place] [Presence] in 05:50</td><td> [facility] Blood by Light Macrocytic Health Care microscopy </td><td> [place] Slight
</td> Poikilocytosis Slight <td> 08/12/2018 [facility] er [Presence] in 11:01</td><td> [facility] Blood by Light Poikilocytosis Health Car e microscopy </td><td> [place] Slight
</td> Anisocytosis Slight <td> 08/12/2018 [place] [Presence] in 11:01</td><td> [facility] Blood by Light Anisocytosis Health Care microscopy </td><td> [place] Slight
</td> Blasts/100 2.0 % % <td> 08/12/2018 [place] leukocytes in 11:01</td><td> [facility] Body fluid by Blast Health Care Manual count </td><td><Scribz raph styleCode="Bold "> 2.0 * AB </paragraph>
% </td> Promyelocytes 3.0 % % <td> 08/11/2018 [facility] r [#/volume] in 21:49</td><td> [facility] Blood by Promyelocyte Health Care Manual count </td><td><Scribz raph styleCode="Bold "> 3.0 * AB </paragraph>
% </td> Myelocytes 12.0 % % <td> 08/12/2018 [place] [#/volume] in 11:01</td><td> [facility] Blood by Myelocyte Health Care Manual count </td><td><Scribz raph styleCode="Bold "> 12.0 * AB </paragraph>
% </td> Sodium 139 mEq/L 135-14 <td> 08/13/2018 [place] [Moles/volume] 5 07:27</td><td> County in Serum or mEq/L Sodium-Serum Health Care Plasma </td><td> [place] 139
(135-145) mEq/L </td> Glucose 79 mg/dL 70-105 <td> 08/13/2018 [place] [Mass/volume] mg/dL 07:27</td><td> County in Blood Glucose-Serum Health Care </td><td> [place] 79
(70-105) mg/dL </td> Dacrocytes Few <td> 08/12/2018 [place] [Presence] in 11:01</td><td> County Blood by Light Tear Drop Cells Health Ca re microscopy </td><td> Corporation Few
</td> Basophilic Occasional <td> 08/08/2018 [place] stippling 15:44</td><td> County [Presence] in Basophilic Health Care Blood by Light St[employer] microscopy </td><td> Occasional
</td> Ovalocytes Few <td> 08/12/2018 [place] [Presence] in 05:50</td><td> [facility] Blood by Light Ovalocytes Health Care microscopy </td><td> Corporation Few
</td> Polychromasia SLIGHT <td> 08/10/2018 [facility] r [Presence] in 07:46</td><td> [facility] Blood by Light Polychromasia Health Care microscopy </td><td> [place] SLIGHT
</td> Creatinine 0.74 mg/dL 0.57-1 <td> 08/13/2018 [place] [Moles/volume] . 07:27</td><td> County in Serum or mg/dL Creatinine. Health Care Plasma </td><td> [place] 0.74
(0.57-1.11) mg/dL </td> Urea nitrogen 24 mg/dL 6-22 <td> 08/13/2018 [facility] r [Mass/volume] mg/dL 07:27</td><td> [place] in Blood BUN Health Care </td><td><Scribz raph styleCode="Bold "> 24 H </paragraph>
(6-22) mg/dL </td> Carbon 20 mEq/L 22-30 <td> 08/13/2018 [place] dioxide, total mEq/L 07:27</td><td> [facility] [Moles/volume] CO2 Health Care in Serum or </td><td><Scribz Plasma raph styleCode="Bold "> 20 L </paragraph>
(22-30) mEq/L </td> Chloride 112 mEq/L 98-107 <td> 08/13/2018 [place] [Moles/volume] mEq/L 07:27</td><td> County in Serum or Chloride Health Care Plasma </td><td><Scribz raph styleCode="Bold "> 112 H </paragraph>
(98-107) mEq/L </td> Potassium 3.6 mEq/L 3.5-5. <td> 08/13/2018 [place] [Moles/volume] 1 07:27</td><td> County in Serum or mEq/L Potassium-Serum Health Care Plasma </td><td> [place] 3.6
(3.5-5.1) mEq/L </td> Calcium 8.4 mg/dL 8.6-10 <td> 08/13/2018 [place] [Mass/volume] .2 07:27</td><td> County in Blood mg/dL Calcium Health Care </td><td><Scribz raph styleCode="Bold "> 8.4 L </paragraph>
(8.6-10.2) mg/dL </td> Albumin 3.3 g/dL 3.4-4. <td> 08/12/2018 [place] [Mass/volume] 8 g/dL 05:50</td><td> County in Serum or Albumin Health Care Plasma </td><td><Scribz raph styleCode="Bold "> 3.3 L </paragraph>
(3.4-4.8) g/dL </td> Proteins - 5.6 g/dL 6.4-8. <td> 08/12/2018 [place] Total 3 g/dL 05:50</td><td> [facility] Proteins - Health Care [employer] </td><td><Snap Trends raph styleCode="Bold "> 5.6 L </paragraph>
(6.4-8.3) g/dL </td> Bilirubin.tota 0.3 mg/dL 0.2-1. <td> 08/12/2018 [facility] er l 3 05:50</td><td> County [Mass/volume] mg/dL Bilirubin - Health Care in Blood [employer] </td><td> 0.3
(0.2-1.3) mg/dL </td> Alanine 25 U/L 6-55 <td> 08/12/2018 [place] aminotransfera U/L 05:50</td><td> [facility] se [Enzymatic ALT (SGPT) Health Care activity/volum </td><td> Corporation e] in Serum or Plasma 25
(6-55) U/L </td> Aspartate 12 U/L 4-35 <td> 08/12/2018 [place] aminotransfera U/L 05:50</td><td> [facility] se [Enzymatic AST (SGOT) Health Care activity/volum </td><td> [place] e] in Serum or Plasma 12
(4-35) U/L </td> Phosphate 3.4 mg/dL 2.3-4. <td> 08/12/2018 [place] [Mass/volume] 7 05:50</td><td> [facility] in Serum or mg/dL Inorganic Health Care Plasma Phosphorus [place] </td><td> 3.4
(2.3-4.7) mg/dL </td> Icteric index Non Icteric <td> 08/13/[address] [facility] of Serum or 07:27</td><td> [facility] Plasma Icteric Index [facility] </td><td> [place] Non Icteric
</td> Lipemic index No Lipemia <td> 08/13/2018 [facility] er of Serum or 07:27</td><td> [facility] Plasma Lipemia Index Health [facility] </td><td> [place] No Lipemia
</td> Hemolysis No <td> 08/13/2018 [place] index of Serum Hemolysis 07:27</td><td> County or Plasma Hemolysis Index Health Care </td><td> [place] No Hemolysis
</td> Globulin 2.3 gm/dL 2.9-4. <td> 08/12/2018 [place] [Mass/volume] 0 05:50</td><td> [facility] in Serum gm/dL Globulin Health Care </td><td><selene Corporation raph styleCode="Bold "> 2.3 L </paragraph>
(2.9-4.0) gm/dL </td> Anion gap in 7 mEq/L 7-13 <td> 08/13/2018 [place] Serum or mEq/L 07:27</td><td> [facility] Plasma Anion Gap Health Care </td><td> [place] 7
(7-13) mEq/L </td> Protein 3+ (>=500 <td> 08/08/2018 [place] [Presence] in MG/DL 15:44</td><td> [facility] Urine by Protein [facility] Care Automated test Qualitative [place] strip </td><td> 3+ (>=500 MG/DL
(NEGATIVE) </td> Specific 1.023 {} 1.000- <td> 08/08/2018 [place] gravity of 1.035 15:44</td><td> [facility] Urine by Test Specific [facility] strip [place] </td><td> 1.023
(1.000-1.035) </td> Appearance of Cloudy <td> 08/08/2018 [facility] r Urine 15:44</td><td> [facility] Appearance Health Care </td><td> [place] Cloudy
(CLEAR) </td> aPTT panel - 26.0 secs 25.0-3 <td> 08/12/2018 [place] Platelet poor 2.0 05:50</td><td> [facility] plasma secs Partial Health Care Thromboplastin [place] Time </td><td> 26.0
(25.0-32.0) secs </td> Prothrombin 10.8 secs 9.8-12 <td> 08/12/2018 [place] time (PT) .0 05:50</td><td> [facility] secs Prothrombin Health [facility] Time. [place] </td><td> 10.8
(9.8-12.0) secs </td> Erythrocytes 33 /HPF 0-2 <td> 08/08/2018 [place] [#/area] in /HPF 15:44</td><td> [facility] Urine sediment RBC </td><td> Health Car e by [employer] count 33
(0-2) /HPF </td> Leukocytes 122 /HPF 0-5 <td> 08/08/2018 [place] [Presence] in /HPF 15:44</td><td> [facility] Urine by WBC </td><td> Health Care [employer] 122
(0-5) /HPF </td> Leukocyte 3+ <td> 08/08/2018 [place] esterase 15:44</td><td> [facility] [Presence] in Leukocytes [facility] Urine by Test Esterase [employer] strip </td><td><[employer] raph styleCode="Bold "> 3+ * AB </paragraph>
(NEGATIVE) </td> Nitrite Negative <td> 08/08/2018 [place] [Presence] in 15:44</td><td> [facility] Urine by Test Nitrites [facility] strip </td><td> Corporation Negative
(NEGATIVE) </td> Urobilinogen 0.2 mg/dL 0.0-2. <td> 08/08/2018 [place] [Presence] in 0 15:44</td><td> [facility] Urine by mg/dL Urobilinogen Health Care Automated test </td><td> Corporation strip 0.2
(0.0-2.0) mg/dL </td> Glucose Negative <td> 08/08/2018 [place] [Presence] in 15:44</td><td> [facility] Urine by Test Glucose_ Health Care strip </td><td> Corporation Negative
(NEGATIVE) </td> Uric Acid 6.1 mg/dL 2.6-6. <td> 08/12/2018 [place] 0 05:50</td><td> [facility] mg/dL Uric Acid [facility] </td><td><[employer] raph styleCode="Bold "> 6.1 H </paragraph>
(2.6-6.0) mg/dL </td> Magnesium 1.6 mg/dL 1.6-2. <td> 08/13/2018 [place] [Mass/volume] 6 07:27</td><td> [facility] in Serum or mg/dL Magnesium [facility] Plasma </td><td> Corporation 1.6
(1.6-2.6) mg/dL </td> Fibrinogen 365 mg/dL 180-40 <td> 08/12/2018 [place] [Mass/volume] 0 05:50</td><td> County in Platelet mg/dL F[facility]in[facility] poor plasma by Level [place] Coagulation </td><td> assay 365
(180-400) mg/dL </td> Mucous RARE <td> 08/08/2018 [place] < FEW 15:44</td><td> County Mucous [facility] </td><td> Corporation RARE
/LPF
< FEW

/LPF </td> Epithelial RARE <td> 08/08/2018 [place] cells [#/area] FEW 15:44</td><td> County in Urine Epithelial [facility] sediment by Airtime Automated </td><td> count RARE
/LPF
FEW

/LPF </td> Bacteria RARE <td> 08/08/2018 [place] [#/area] in 15:44</td><td> [facility] Urine sediment Bacteria [facility] by Microscopy </td><td> [place] high power field RARE
(NONE SEEN) /HPF </td> Glucose 124 mg/dL 70-105 <td> 08/09/2018 [place] [Mass/volume] mg/dL 18:33</td><td> County in Capillary Glucose - Health Care blood by Finger Stick [place] Glucometer </td><td><selene raph styleCode="Bold "> 124 H </paragraph>
(70-105) mg/dL </td> ID Date Data Source [id number] 06/29/2018 12:19:51 PM EST [facility] [place] [facility] [id number] [facility] Name Value Range Interpretation Description Data Sup porting Code Source(s) Document(s ) Antibody ID 1 POS, <td> [place] Anti-Jka 06/27/2018 [facility] 02:55</td><td> Care Antibody ID 1 Corporation </td><td> POS, Anti-Jka
</td> ABO-Rh Type O POS <td> [place] 06/27/2018 [facility] 02:55</td><td> Care ABO-Rh Type Corporation </td><td> O POS
</td> Antibody ID 1 POS, <td> [place] Anti-Elias 06/27/2018 [facility] l 02:55</td><td> Care Antibody ID 1 Corporation </td><td> POS, Anti-Eustis
</td> ABO O POS <td> [place] Verification 06/23/2018 [facility] 20:25</td><td> Care ABO Corporation Verification </td><td> O POS
</td> Antibody POS <td> [place] Screen 06/27/2018 [facility] 02:55</td><td> Care Antibody Corporation Screen </td><td> POS
</td> Antibody ID 1 POS, <td> [place] Anti-Fyb 06/27/2018 [facility] 02:55</td><td> Care Antibody ID 1 Corporation </td><td> POS, Anti-Fyb
</td> Antibody ID 1 POS, <td> [place] Anti-E 06/27/2018 [facility] 02:55</td><td> Care Antibody ID 1 Corporation </td><td> POS, Anti-E
</td> SARA POLY NEG <td> [place] 06/27/2018 [facility] 02:55</td><td> Care SARA POLY Corporation </td><td> NEG
</td> Specimen 06/30/20 <td> [place] expiration date 18 23:59 06/27/2018 [facility] of Blood 02:55</td><td> Care Specimen Corporation Expiration Date </td><td> 06/30/2018 23:59
</td> Antibody ID 1 POS, <td> [place] Anti-E 06/27/2018 [facility] 02:55</td><td> Care Antibody ID 1 Corporation </td><td> POS, Anti-E
</td> Antibody ID 1 POS, <td> [place] Anti-Fyb 06/27/2018 [facility] 02:55</td><td> Care Antibody ID 1 Corporation </td><td> POS, Anti-Fyb
</td> Antibody ID 1 POS, <td> [place] Anti-Elias 06/27/2018 [facility] l 02:55</td><td> Care Antibody ID 1 Corporation </td><td> POS, Anti-Ramya
</td> Antibody POS <td> [place] Screen 06/27/2018 [facility] 02:55</td><td> Care Antibody Corporation Screen </td><td> POS
</td> ABO-Rh Type O POS <td> [place] 06/27/2018 [facility] 02:55</td><td> Care ABO-Rh Type Corporation </td><td> O POS
</td> SARA POLY NEG <td> [place] 06/27/2018 [facility] 02:55</td><td> Care SARA POLY Corporation </td><td> NEG
</td> Specimen 06/30/20 <td> [place] expiration date 18 23:59 06/27/2018 [facility] of Blood 02:55</td><td> Care Specimen Corporation Expiration Date </td><td> 06/30/2018 23:59
</td> ABO O POS <td> [place] Verification 06/23/2018 [facility] 20:25</td><td> Care ABO Corporation Verification </td><td> O POS
</td> Antibody ID 1 POS, <td> [place] Anti-Jka 06/27/2018 [facility] 02:55</td><td> Care Antibody ID 1 Corporation </td><td> POS, Anti-Jka
</td> Antibody ID 1 POS, <td> [place] Anti-E 06/27/2018 [facility] 02:55</td><td> Care Antibody ID 1 Corporation </td><td> POS, Anti-E
</td> Antibody ID 1 POS, <td> [place] Anti-Fyb 06/27/2018 [facility] 02:55</td><td> Care Antibody ID 1 Corporation </td><td> POS, Anti-Fyb
</td> Antibody ID 1 POS, <td> [place] Anti-Elias 06/27/2018 [facility] l 02:55</td><td> Care Antibody ID 1 Corporation </td><td> POS, Anti-Ramya
</td> Antibody POS <td> [place] Screen 06/27/2018 [facility] 02:55</td><td> Care Antibody Corporation Screen </td><td> POS
</td> ABO-Rh Type O POS <td> [place] 06/27/2018 [facility] 02:55</td><td> Care ABO-Rh Type Corporation </td><td> O POS
</td> SARA POLY NEG <td> [place] 06/27/2018 [facility] 02:55</td><td> Care SARA POLY Corporation </td><td> NEG
</td> Specimen 06/30/20 <td> [place] expiration date 18 23:59 06/27/2018 [facility] of Blood 02:55</td><td> Care Specimen Corporation Expiration Date </td><td> 06/30/2018 23:59
</td> ABO O POS <td> [place] Verification 06/23/2018 [facility] 20:25</td><td> Care ABO Corporation Verification </td><td> O POS
</td> Antibody ID 1 POS, <td> [place] Anti-Jka 06/27/2018 [facility] 02:55</td><td> Care Antibody ID 1 Corporation </td><td> POS, Anti-Jka
</td> ID Date Data Source [id number] 06/29/2018 12:19:51 PM EST [facility] [place] [id number] Corporation Name Value Range Interpretation Description Data Sup porting Code Source(s) Document(s ) Echo 2D [id number] [facility] <td> 06/25/2018 [facility] M-Mode [id number] 14:22</td><td> [facility] [id number] Echo 2D M-Mode Health [facility] (TTE) Non-Invasive Complete (TTE) [facility] </td><td> Laboratory [id number] Advanced
Physician [facility] Services,
[address] [id number] [place]
[address] Phone [phone] Non-Invasive Adult
Echocardiogram Cardiology Report Name:
DIANNA CROSS Laboratory
Study Date: Advanced 06/25/2018
02:22 PM MRN: Physician [id number] :
1960 Services,
Gender: [address] Female Age: [address] 58 yrs
[place], [place] Height: 65
in Account [address] Number:
[id number] Phone [phone]
Weight: 165 lb [phone] Fax BSA: 1.8 m2
Patient (611) Location: 4NE [phone] Reason For
Study: CHF Adult Ordering Echocardiogram Physician: DESTINEE Coto
Performed By: Name: Keli CROSS Xiaobin SUSAN Interpretation Summary The Study Date: left ventricle 06/25/2018 is normal in 02:22 PM size. Left
ventricular systolic
function is : normal. Left 1960 ventricular ejection Gender: fraction is Female 60%. Mild
Hypokinesis of Age: 58 yrs the basal to mid inferior myocardium. Height: 65 in The right
ventricular Account systolic Number: function is [id number] normal. Paradoxical Weight: 165 lb septal motion.
There is a BSA: 1.8 m2 small pericardial
effusion. Patient ICD-10 Location: 4NE Congestive
Heart Failure - Reason For I50.9. Study: CHF Procedure A complete

two-dimensional Ordering transthoracic Physician: echocardiogram DESTINEE MIRANDA, was performed
(2D, M-mode, Performed By: spectral and Damon Dickey color flow Doppler).

([id number]). Study Interpretation quality is Summary technically
suboptimal. The left Left Ventricle ventricle is The left normal in size. ventricle is normal in size.
Left There is normal ventricular left systolic ventricular function is wall normal. thickness. Left
ventricular Left systolic ventricular function is ejection normal. Left fraction is ventricular 60%. ejection
Mild fraction is Hypokinesis of 60%. Mild the basal to Hypokinesis of mid inferior the basal to myocardium. mid inferior
myocardium. The right Right ventricular Ventricle The systolic right ventricle function is is normal in normal. size. There is
normal right Paradoxical ventricular septal motion. wall thickness.
The right There is a ventricular small systolic pericardial function is effusion. normal.

Venticular ICD-10 Septum
Paradoxical Congestive septal motion. Heart Failure - Left Atrium I50.9. Indexed left

atrial volume Procedure is normal.
Right Atrium A complete Normal right two-dimensional atrial size. transthoracic Aortic Valve echocardiogram The aortic was performed valve is (2D, trileaflet.
Normal M-mode, thickness spectral and aortic valve color flow leaflets. Doppler). There is no (52320). Study aortic quality is stenosis. No
aortic technically regurgitation. suboptimal. Mitral Valve Mild

mitral annular Left Ventricle calcification.
There is no The left mitral valve ventricle is stenosis. normal in size. Trivial mitral There is normal valve left regurgitation. ventricular wall Tricuspid Valve
Normal thickness. Left thickness ventricular tricuspid valve systolic leaflets. There function is is no tricuspid normal. Left stenosis. ventricular Trivial
tricuspid valve ejection regurgitation. fraction is Pulmonic 60%. Mild Valve The Hypokinesis of pulmonic valve the basal to is poorly mid inferior visualized.
There is no myocardium. pulmonic valve stenosis. No

significant Right pulmonic Ventricle regurgitation.
Aorta The The right aortic root is ventricle is normal in size. normal in size. The visualized There is normal area of right ascending aorta ventricular is normal in
size. The wall visualized area thickness. The of aortic arch right is normal in ventricular size. systolic Pulmonary function is Artery There normal. was

insufficient Venticular tricuspid Septum regurgitation
detected to Paradoxical calculate septal motion. pulmonary artery systolic

pressure. Left Atrium Venous The
inferior vena Indexed left cava is poorly atrial volume visualized. The is normal. inferior vena cava is

normal in size. Right Atrium
Pericardium Normal right There is a atrial size. small pericardial

effusion. Aortic Valve MMode/2D
Measurements & The aortic Calculations valve is IVSd: 1.2 cm trileaflet. LVIDd: 4.0 cm Normal thickness Ao root diam: aortic valve 3.0 cm LVIDs: leaflets. 2.9 cm
LA There is no dimension: 3.8 aortic cm LVPWd: 1.3 stenosis. No cm aortic regurgitation.

Mitral Valve _ Asc
Aorta diam: Mild mitral Left atrial annular volume (2c): calcification. TAPSE: 2.4 cm There is no 3.1 cm mitral valve 48.6 ml Ao stenosis. arch diam:
Left atrial Trivial mitral volume (4c): valve 3.0 cm regurgitation. 58.6 ml

Tricuspid Valve
_ RV mid Normal diameter: Left thickness atrial volume tricuspid valve index Left leaflets. There atrial volume is no tricuspid index 3.5 cm stenosis. (2c):
26.7 ml/m2 Trivial (4c): tricuspid valve 32.1 ml/m2 regurgitation. Doppler Measurements &

Calculations Pulmonic Valve MV E max lisette:
85.9 cm/sec MV The v max: 114.0 pulmonic valve cm/sec MV dec is poorly time: 0.20 sec visualized. MV A max lisette: There is no 103.8 cm/sec MV pulmonic valve max P.2
mmHg MV E/A: stenosis. 0.83 No significant MV v mean: pulmonic 77.1 cm/sec regurgitation. MV mean P.7 mmHg MV VTI:

23.4 cm Aorta
The aortic root is normal in size. The visualized _ Lat E' lisette: area of 7.2 cm/sec ascending aorta Med E' lisette: 9.8 cm/sec E/E'
is Lateral: 11.9 normal in size. E/E' Medial: The visualized 8.7 area of aortic arch is normal in size.

Pulmonary _ AV v Artery max: 219.4
cm/sec LVOT There was max P.1 insufficient mmHg PA v tricuspid max: 158.8 regurgitation cm/sec AV max detected to P.5 mmHg calculate LVOT mean
P.2 mmHg pulmonary PA max P.1 artery systolic mmHg AV v pressure. mean: 151.7

cm/sec LVOT Venous v max: 132.9
cm/sec AV The inferior mean P.5 vena cava is mmHg LVOT poorly v mean: 78.6 visualized. The cm/sec AV inferior vena VTI: 33.4 cm cava is LVOT
VTI: 18.9 cm normal in size.

Pericardium _ RV A'
There lisette: 27.8 is a small cm/sec E/E' pericardial Average: 10.3 effusion. RV E' lisette: 13.8

cm/sec RV S MMode/2D lisette: 14.5 Measurements & cm/sec Calculations
IVSd: 1.2 cm LVIDd: 4.0 cm Ao root diam: _ 3.0 cm Reading
Physician: LVIDs: 2.9 cm Judy GALLARDO 06/25/2018 dimension: 3.8 04:13 PM cm
LVPWd: 1.3 cm
_

Asc Aorta diam: Left atrial volume (2c): TAPSE: 2.4 cm
3.1 cm 48.6 ml
Ao arch diam: Left atrial volume (4c):
3.0 cm 58.6 ml
__

RV mid diameter: Left atrial volume index Left atrial volume index
3.5 cm (2c): 26.7 ml/m2 (4c): 32.1 ml/m2

Doppler Measurements & Calculations
MV E max lisette: 85.9 cm/sec MV v max: 114.0 cm/sec MV dec time: 0.20 sec
MV A max lisette: 103.8 cm/sec MV max P.2 mmHg
MV E/A: 0.83 MV v mean: 77.1 cm/sec
MV mean P.7 mmHg
MV VTI: 23.4 cm

_
Lat E' lisette: 7.2 cm/sec Med E' lisette: 9.8 cm/sec E/E' Lateral: 11.9
E/E' Medial: 8.7
_

AV v max: 219.4 cm/sec LVOT max P.1 mmHg PA v max: 158.8 cm/sec
AV max P.5 mmHg LVOT mean P.2 mmHg PA max P.1 mmHg
AV v mean: 151.7 cm/sec LVOT v max: 132.9 cm/sec
AV mean P.5 mmHg LVOT v mean: 78.6 cm/sec
AV VTI: 33.4 cm LVOT VTI: 18.9 cm
_

RV A' lisette: 27.8 cm/sec E/E' Average: 10.3
RV E' lisette: 13.8 cm/sec
RV S lisette: 14.5 cm/sec

__

Reading Physician:
MD Judy Hager 06/25/2018 04:13 PM

</td> Echo 2D [id number] [facility] <td> 06/25/2018 [facility] M-Mode [id number] 14:22</td><td> [facility] [id number] Echo 2D M-Mode Health Care (TTE) Non-Invasive Complete (TTE) [facility] </td><td> Laboratory [id number] Advanced
Physician [facility] Services, PC
[address] [facility] [id number] [place] [address] Phone [phone] Non-Invasive Adult
Echocardiogram Cardiology Report Name:
DIANNA CROSS Laboratory
Study Date: Advanced 06/25/2018
02:22 PM MRN: Physician [id number] :
1960 [facility], [facility]
Gender: [address] Female Age: Road 58 yrs
[place] Height: 65
in Account [address] Number:
[phone] Phone [phone])
Weight: 165 lb [phone] Fax BSA: 1.8 m2
Patient (914) Location: [address] [place], [place] [id number] Reason For
Study: CHF Adult Ordering Echocardiogram Physician: Report DESTINEE MIRANDA,
Performed By: Name: Keli CROSS Xiaobin SUSAN Interpretation Summary The Study Date: left ventricle 06/25/2018 is normal in 02:22 PM size. Left
ventricular systolic
function is : normal. Left 1960 ventricular ejection Gender: fraction is Female 60%. Mild
Hypokinesis of Age: 58 yrs the basal to mid inferior myocardium. Height: 65 in The right
ventricular Account systolic Number: function is [id number] normal. Paradoxical Weight: 165 lb septal motion.
There is a BSA: 1.8 m2 small pericardial
effusion. Patient ICD-10 Location: 4NE Congestive
Heart Failure - Reason For I50.9. Study: CHF Procedure A complete

two-dimensional Ordering transthoracic Physician: echocardiogram DESTINEE MIRANDA, was performed
(2D, M-mode, Performed By: spectral and Damon Dickey color flow Doppler).

([id number]). Study Interpretation quality is Summary technically
suboptimal. The left Left Ventricle ventricle is The left normal in size. ventricle is normal in size.
Left There is normal ventricular left systolic ventricular function is wall normal. thickness. Left
ventricular Left systolic ventricular function is ejection normal. Left fraction is ventricular 60%. ejection
Mild fraction is Hypokinesis of 60%. Mild the basal to Hypokinesis of mid inferior the basal to myocardium. mid inferior
myocardium. The right Right ventricular Ventricle The systolic right ventricle function is is normal in normal. size. There is
normal right Paradoxical ventricular septal motion. wall thickness.
The right There is a ventricular small systolic pericardial function is effusion. normal.

Venticular ICD-10 Septum
Paradoxical Congestive septal motion. Heart Failure - Left Atrium I50.9. Indexed left

atrial volume Procedure is normal.
Right Atrium A complete Normal right two-dimensional atrial size. transthoracic Aortic Valve echocardiogram The aortic was performed valve is (2D, trileaflet.
Normal M-mode, thickness spectral and aortic valve color flow leaflets. Doppler). There is no (69907). Study aortic quality is stenosis. No
aortic technically regurgitation. suboptimal. Mitral Valve Mild

mitral annular Left Ventricle calcification.
There is no The left mitral valve ventricle is stenosis. normal in size. Trivial mitral There is normal valve left regurgitation. ventricular wall Tricuspid Valve
Normal thickness. Left thickness ventricular tricuspid valve systolic leaflets. There function is is no tricuspid normal. Left stenosis. ventricular Trivial
tricuspid valve ejection regurgitation. fraction is Pulmonic 60%. Mild Valve The Hypokinesis of pulmonic valve the basal to is poorly mid inferior visualized.
There is no myocardium. pulmonic valve stenosis. No

significant Right pulmonic Ventricle regurgitation.
Aorta The The right aortic root is ventricle is normal in size. normal in size. The visualized There is normal area of right ascending aorta ventricular is normal in
size. The wall visualized area thickness. The of aortic arch right is normal in ventricular size. systolic Pulmonary function is Artery There normal. was

insufficient Venticular tricuspid Septum regurgitation
detected to Paradoxical calculate septal motion. pulmonary artery systolic

pressure. Left Atrium Venous The
inferior vena Indexed left cava is poorly atrial volume visualized. The is normal. inferior vena cava is

normal in size. Right Atrium
Pericardium Normal right There is a atrial size. small pericardial

effusion. Aortic Valve MMode/2D
Measurements & The aortic Calculations valve is IVSd: 1.2 cm trileaflet. LVIDd: 4.0 cm Normal thickness Ao root diam: aortic valve 3.0 cm LVIDs: leaflets. 2.9 cm
LA There is no dimension: 3.8 aortic cm LVPWd: 1.3 stenosis. No cm aortic regurgitation.

Mitral Valve _ Asc
Aorta diam: Mild mitral Left atrial annular volume (2c): calcification. TAPSE: 2.4 cm There is no 3.1 cm mitral valve 48.6 ml Ao stenosis. arch diam:
Left atrial Trivial mitral volume (4c): valve 3.0 cm regurgitation. 58.6 ml

Tricuspid Valve
_ RV mid Normal diameter: Left thickness atrial volume tricuspid valve index Left leaflets. There atrial volume is no tricuspid index 3.5 cm stenosis. (2c):
26.7 ml/m2 Trivial (4c): tricuspid valve 32.1 ml/m2 regurgitation. Doppler Measurements &

Calculations Pulmonic Valve MV E max lisette:
85.9 cm/sec MV The v max: 114.0 pulmonic valve cm/sec MV dec is poorly time: 0.20 sec visualized. MV A max lisette: There is no 103.8 cm/sec MV pulmonic valve max P.2
mmHg MV E/A: stenosis. 0.83 No significant MV v mean: pulmonic 77.1 cm/sec regurgitation. MV mean P.7 mmHg MV VTI:

23.4 cm Aorta
The aortic root is normal in size. The visualized _ Lat E' lisette: area of 7.2 cm/sec ascending aorta Med E' lisette: 9.8 cm/sec E/E'
is Lateral: 11.9 normal in size. E/E' Medial: The visualized 8.7 area of aortic arch is normal in size.

Pulmonary _ AV v Artery max: 219.4
cm/sec LVOT There was max P.1 insufficient mmHg PA v tricuspid max: 158.8 regurgitation cm/sec AV max detected to P.5 mmHg calculate LVOT mean
P.2 mmHg pulmonary PA max P.1 artery systolic mmHg AV v pressure. mean: 151.7

cm/sec LVOT Venous v max: 132.9
cm/sec AV The inferior mean P.5 vena cava is mmHg LVOT poorly v mean: 78.6 visualized. The cm/sec AV inferior vena VTI: 33.4 cm cava is LVOT
VTI: 18.9 cm normal in size.

Pericardium _ RV A'
There lisette: 27.8 is a small cm/sec E/E' pericardial Average: 10.3 effusion. RV E' lisette: 13.8

cm/sec RV S MMode/2D lisette: 14.5 Measurements & cm/sec Calculations
IVSd: 1.2 cm LVIDd: 4.0 cm Ao root diam: _ 3.0 cm Reading
Physician: LVIDs: 2.9 cm Judy GALLARDO 06/25/2018 dimension: 3.8 04:13 PM cm
LVPWd: 1.3 cm
_

Asc Aorta diam: Left atrial volume (2c): TAPSE: 2.4 cm
3.1 cm 48.6 ml
Ao arch diam: Left atrial volume (4c):
3.0 cm 58.6 ml
__

RV mid diameter: Left atrial volume index Left atrial volume index
3.5 cm (2c): 26.7 ml/m2 (4c): 32.1 ml/m2

Doppler Measurements & Calculations
MV E max lisette: 85.9 cm/sec MV v max: 114.0 cm/sec MV dec time: 0.20 sec
MV A max lisette: 103.8 cm/sec MV max P.2 mmHg
MV E/A: 0.83 MV v mean: 77.1 cm/sec
MV mean P.7 mmHg
MV VTI: 23.4 cm

_
Lat E' lisette: 7.2 cm/sec Med E' lisette: 9.8 cm/sec E/E' Lateral: 11.9
E/E' Medial: 8.7
_

AV v max: 219.4 cm/sec LVOT max P.1 mmHg PA v max: 158.8 cm/sec
AV max P.5 mmHg LVOT mean P.2 mmHg PA max P.1 mmHg
AV v mean: 151.7 cm/sec LVOT v max: 132.9 cm/sec
AV mean P.5 mmHg LVOT v mean: 78.6 cm/sec
AV VTI: 33.4 cm LVOT VTI: 18.9 cm
_

RV A' lisette: 27.8 cm/sec E/E' Average: 10.3
RV E' lisette: 13.8 cm/sec
RV S lisette: 14.5 cm/sec

__

Reading Physician:
MD Judy Hager 06/25/2018 04:13 PM

</td> Echo 2D [id number] [facility] <td> 06/25/2018 [facility] M-Mode [id number] 14:22</td><td> [facility] [id number] Echo 2D M-Mode Health Care (TTE) Non-Invasive Complete (TTE) [facility] </td><td> Laboratory [id number] Advanced
Physician [facility] Services,
[address] [id number] [place]
[address] Phone [phone] Non-Invasive Adult
Echocardiogram Cardiology Report Name:
DIANNA CROSS Laboratory
Study Date: Advanced 06/25/2018
02:22 PM MRN: Physician [id number] :
1960 [facility],
Gender: [address] Female Age: [address] 58 yrs
[place], [place] Height: 65
in Account [address] Number:
[id number] Phone [phone]
Weight: 165 lb [phone] Fax BSA: 1.8 m2
Patient (926) Location: [facility] [id number] Reason For
Study: CHF Adult Ordering Echocardiogram Physician: DESTINEE Coto
Performed By: Name: Keli CROSS Xiaobin SUSAN Interpretation Summary The Study Date: left ventricle 06/25/2018 is normal in 02:22 PM size. Left
ventricular systolic
function is : normal. Left 1960 ventricular ejection Gender: fraction is Female 60%. Mild
Hypokinesis of Age: 58 yrs the basal to mid inferior myocardium. Height: 65 in The right
ventricular Account systolic Number: function is [id number] normal. Paradoxical Weight: 165 lb septal motion.
There is a BSA: 1.8 m2 small pericardial
effusion. Patient ICD-10 Location: 4NE Congestive
Heart Failure - Reason For I50.9. Study: CHF Procedure A complete

two-dimensional Ordering transthoracic Physician: echocardiogram DESTINEE MIRANDA, was performed
(2D, M-mode, Performed By: spectral and Damon Dickey color flow Doppler).

([id number]). Study Interpretation quality is Summary technically
suboptimal. The left Left Ventricle ventricle is The left normal in size. ventricle is normal in size.
Left There is normal ventricular left systolic ventricular function is wall normal. thickness. Left
ventricular Left systolic ventricular function is ejection normal. Left fraction is ventricular 60%. ejection
Mild fraction is Hypokinesis of 60%. Mild the basal to Hypokinesis of mid inferior the basal to myocardium. mid inferior
myocardium. The right Right ventricular Ventricle The systolic right ventricle function is is normal in normal. size. There is
normal right Paradoxical ventricular septal motion. wall thickness.
The right There is a ventricular small systolic pericardial function is effusion. normal.

Venticular ICD-10 Septum
Paradoxical Congestive septal motion. Heart Failure - Left Atrium I50.9. Indexed left

atrial volume Procedure is normal.
Right Atrium A complete Normal right two-dimensional atrial size. transthoracic Aortic Valve echocardiogram The aortic was performed valve is (2D, trileaflet.
Normal M-mode, thickness spectral and aortic valve color flow leaflets. Doppler). There is no ([id number]). Study aortic quality is stenosis. No
aortic technically regurgitation. suboptimal. Mitral Valve Mild

mitral annular Left Ventricle calcification.
There is no The left mitral valve ventricle is stenosis. normal in size. Trivial mitral There is normal valve left regurgitation. ventricular wall Tricuspid Valve
Normal thickness. Left thickness ventricular tricuspid valve systolic leaflets. There function is is no tricuspid normal. Left stenosis. ventricular Trivial
tricuspid valve ejection regurgitation. fraction is Pulmonic 60%. Mild Valve The Hypokinesis of pulmonic valve the basal to is poorly mid inferior visualized.
There is no myocardium. pulmonic valve stenosis. No

significant Right pulmonic Ventricle regurgitation.
Aorta The The right aortic root is ventricle is normal in size. normal in size. The visualized There is normal area of right ascending aorta ventricular is normal in
size. The wall visualized area thickness. The of aortic arch right is normal in ventricular size. systolic Pulmonary function is Artery There normal. was

insufficient Venticular tricuspid Septum regurgitation
detected to Paradoxical calculate septal motion. pulmonary artery systolic

pressure. Left Atrium Venous The
inferior vena Indexed left cava is poorly atrial volume visualized. The is normal. inferior vena cava is

normal in size. Right Atrium
Pericardium Normal right There is a atrial size. small pericardial

effusion. Aortic Valve MMode/2D
Measurements & The aortic Calculations valve is IVSd: 1.2 cm trileaflet. LVIDd: 4.0 cm Normal thickness Ao root diam: aortic valve 3.0 cm LVIDs: leaflets. 2.9 cm
LA There is no dimension: 3.8 aortic cm LVPWd: 1.3 stenosis. No cm aortic regurgitation.

Mitral Valve _ Asc
Aorta diam: Mild mitral Left atrial annular volume (2c): calcification. TAPSE: 2.4 cm There is no 3.1 cm mitral valve 48.6 ml Ao stenosis. arch diam:
Left atrial Trivial mitral volume (4c): valve 3.0 cm regurgitation. 58.6 ml

Tricuspid Valve
_ RV mid Normal diameter: Left thickness atrial volume tricuspid valve index Left leaflets. There atrial volume is no tricuspid index 3.5 cm stenosis. (2c):
26.7 ml/m2 Trivial (4c): tricuspid valve 32.1 ml/m2 regurgitation. Doppler Measurements &

Calculations Pulmonic Valve MV E max lisette:
85.9 cm/sec MV The v max: 114.0 pulmonic valve cm/sec MV dec is poorly time: 0.20 sec visualized. MV A max lisette: There is no 103.8 cm/sec MV pulmonic valve max P.2
mmHg MV E/A: stenosis. 0.83 No significant MV v mean: pulmonic 77.1 cm/sec regurgitation. MV mean P.7 mmHg MV VTI:

23.4 cm Aorta
The aortic root is normal in size. The visualized _ Lat E' lisette: area of 7.2 cm/sec ascending aorta Med E' lisette: 9.8 cm/sec E/E'
is Lateral: 11.9 normal in size. E/E' Medial: The visualized 8.7 area of aortic arch is normal in size.

Pulmonary _ AV v Artery max: 219.4
cm/sec LVOT There was max P.1 insufficient mmHg PA v tricuspid max: 158.8 regurgitation cm/sec AV max detected to P.5 mmHg calculate LVOT mean
P.2 mmHg pulmonary PA max P.1 artery systolic mmHg AV v pressure. mean: 151.7

cm/sec LVOT Venous v max: 132.9
cm/sec AV The inferior mean P.5 vena cava is mmHg LVOT poorly v mean: 78.6 visualized. The cm/sec AV inferior vena VTI: 33.4 cm cava is LVOT
VTI: 18.9 cm normal in size.

Pericardium _ RV A'
There lisette: 27.8 is a small cm/sec E/E' pericardial Average: 10.3 effusion. RV E' lisette: 13.8

cm/sec RV S MMode/2D lisette: 14.5 Measurements & cm/sec Calculations
IVSd: 1.2 cm LVIDd: 4.0 cm Ao root diam: _ 3.0 cm Reading
Physician: LVIDs: 2.9 cm Judy GALLARDO 06/25/2018 dimension: 3.8 04:13 PM cm
LVPWd: 1.3 cm
_

Asc Aorta diam: Left atrial volume (2c): TAPSE: 2.4 cm
3.1 cm 48.6 ml
Ao arch diam: Left atrial volume (4c):
3.0 cm 58.6 ml
__

RV mid diameter: Left atrial volume index Left atrial volume index
3.5 cm (2c): 26.7 ml/m2 (4c): 32.1 ml/m2

Doppler Measurements & Calculations
MV E max lisette: 85.9 cm/sec MV v max: 114.0 cm/sec MV dec time: 0.20 sec
MV A max lisette: 103.8 cm/sec MV max P.2 mmHg
MV E/A: 0.83 MV v mean: 77.1 cm/sec
MV mean P.7 mmHg
MV VTI: 23.4 cm

_
Lat E' lisette: 7.2 cm/sec Med E' lisette: 9.8 cm/sec E/E' Lateral: 11.9
E/E' Medial: 8.7
_

AV v max: 219.4 cm/sec LVOT max P.1 mmHg PA v max: 158.8 cm/sec
AV max P.5 mmHg LVOT mean P.2 mmHg PA max P.1 mmHg
AV v mean: 151.7 cm/sec LVOT v max: 132.9 cm/sec
AV mean P.5 mmHg LVOT v mean: 78.6 cm/sec
AV VTI: 33.4 cm LVOT VTI: 18.9 cm
_

RV A' lisette: 27.8 cm/sec E/E' Average: 10.3
RV E' lisette: 13.8 cm/sec
RV S lisette: 14.5 cm/sec

__

Reading Physician:
MD Judy Hager 06/25/2018 04:13 PM

</td> ID Date Data Source [id number] 06/29/2018 12:19:51 PM [facility] [id number] Corporation Name Value Range Interpretation Description Data Sup porting Code Source(s) Document(s ) Chest (PACSIMAGE <td> 06/23/2018 [place] Portable 15:48</td><td> [facility] ) Chest [facility] Final Result </td><td><paragrap Corporat ion Name: ethan CROSS styleCode="Sujata BUSTAMANTE MRN: ">(PACSIMAGE [id number] Sex: F : )</paragraph>
1960
Final Location: F Result Admitting

Physician: Name: TAY, EMERGENCY DIANNA SERVICE
MRN: Requesting [id number] Sex: F Physician:
JUAN JOSE CHE : 1960 Exam: Location: F CHEST
PORTABLE Admitting 06/23/2018 Physician: 16:55 EMERGENCY SERVICE Chest
CLINICAL Requesting HISTORY: Physician: JUAN JOSE CHE protocol

TECHNIQUE: Exam: CHEST Portable PORTABLE COMPARISON: 06/23/2018 16:55 06/06/2018 FINDINGS:

Patient is Chest obliqued to

the left. CLINICAL HISTORY: Low lung Sepsis protocol volumes.

There is TECHNIQUE: diffuse Portable haziness over

the right COMPARISON: lung with 06/06/2018 evidence of

central FINDINGS: pulmonary

venous Patient is congestion. obliqued to the Small pleural left. effusions

Low may be lung volumes. present. There is diffuse There is no haziness over the evidence of right lung pneumothorax.
with The evidence of cardiomediast central pulmonary inal venous congestion. silhouette is Small pleural grossly
unremarkable effusions may be in width present. There is and contour. no evidence of The pulmonary pneumothorax. arteries are
somewhat The prominent. cardiomediastinal IMPRESSION: silhouette is Low grossly volume chest. unremarkable in Central width pulmonary
and venous contour. The congestion pulmonary arteries with possible are somewhat asymmetric prominent. pulmonary

edema on the IMPRESSION: right.

Suspected Low volume chest. enlarged Central pulmonary pulmonary venous congestion arteries with possible which can
reflect asymmetric pulmonary pulmonary edema on artery the right. hypertension. Suspected enlarged pulmonary Resident
Radiologist: arteries which can Attending reflect pulmonary Radiologist: artery Anthony hypertension. Asher RG Finalizing

<br Radiologist: /> Resident Anthony Radiologist: Asher RG
Transcribed Attending Date: Radiologist: 06/23/2018 Anthonyceasar Sterling MD 17:02
Finalized Finalizing Date: Radiologist: 06/23/2018 Anthony Sterling MD 17:04
Transcribed Date: 06/23/2018 17:02
Finalized Date: 06/23/2018 17:04

</td> Femoral/P (PACSIMAGE <td> 06/23/2018 [place] opliteal 21:13</td><td> [facility] ) Femoral/Popliteal [facility] Final Result [facility] Corporation Name: </td><td><paratong CROSS ethan BUSTAMANTE MRN: styleCode="Italics [id number] Sex: ">(PACSIMAGE F : 1960 )</paragraph>
Location: F
Final Admitting Result Physician:

DARIO ROSALES Name: Iain CROSS Physician:
MRN: DESTINEE MIRANDA [id number] Sex: F Exam: US
DPLX FEM+POP : 1960 VEINS BILAT Location: F 06/23/2018
21:13 Admitting CLINICAL Physician: DARIO INFORMATION: CONNIE Evaluate for
DVT. Requesting TECHNIQUE: Physician: DESTINEE Sonogram of MIRANDA the deep

venous system Exam: US DPLX of the lower FEM+POP VEINS extremities, BILAT 06/23/2018 utilizing 21:13 bob scale

images and CLINICAL color Doppler INFORMATION: flow. Evaluate for DVT. COMPARISON: 06/07/2018

FINDINGS: TECHNIQUE: The right Sonogram of the common deep venous system femoral, of the lower greater extremities, saphenous,
superficial utilizing bob femoral, scale images and and popliteal color Doppler veins show flow. normal

color-flow COMPARISON: and 06/07/2018 compressibili

ty. There FINDINGS: is normal

response to The right common augmentation. femoral, greater The left saphenous, common superficial femoral, femoral, greater
and saphenous, popliteal veins superficial show normal femoral and color-flow and popliteal compressibility. veins show
normal There is normal color-flow response to and augmentation. compressibili

ty. There The left common is normal femoral, greater response to saphenous, augmentation. superficial femoral IMPRESSION:
and 1. No popliteal veins evidence for show normal DVT color-flow and compressibility. Resident
Radiologist: There is normal Attending response to Radiologist: augmentation. Jero Slater

IMPRESSION: Finalizing

Radiologist: 1. No evidence Jero Slater for DVT

<br Transcribed />

Date: Resident 06/23/2018 Radiologist: 22:03
Finalized Attending Date: Radiologist: 06/23/2018 Jero Slater MD 22:03
Finalizing Radiologist: Jero Slater MD
Transcribed Date: 06/23/2018 22:03
Finalized Date: 06/23/2018 22:03

</td> Abdomen (PACSIMAGE <td> 06/25/2018 [place] Flat And 15:23</td><td> [facility] ) Abdomen Flat And Health [facility] Final Result [facility] [employer] Name: </td><td><paraethan Matute MRN: styleCode="Italelliott [id number] Sex: ">(PACSIMAGE F : 1960 )</paragraph>
Location: F
Final Admitting Result Physician:

DARIO ROSALES Name: Iain CROSS Physician:
MRN: RIGOBERTO [id number] Sex: F PITCH
Exam: ABDOMEN : 1960 WITH UPRIGHT Location: F 06/25/2018
15:56 Admitting TWO VIEW Physician: DARIO ABDOMEN GOUTIS INDICATION:
Pain Requesting Supine and Physician: upright views RIGOBERTO SCHUMACHER of the

abdomen were Exam: ABDOMEN obtained. WITH UPRIGHT COMPARISON: 06/25/2018 15:56 06/23/2018 FINDINGS:

There is TWO VIEW ABDOMEN severe hepatic and

splenic INDICATION: Pain enlargement. There is

a nonspecific Supine and upright but non views of the obstructed abdomen were bowel gas obtained. pattern. No

evidence of COMPARISON: free 06/23/2018 intraperitone

al air. FINDINGS: Suggestion of

left lower There is severe lobe airspace hepatic and consolidation splenic . The enlargement. left femoral

neck is not There is a well seen, nonspecific but this may be non obstructed projectional, bowel gas pattern. if there is
clinical No evidence of concern for a free left hip intraperitoneal fracture air. dedicated

hip Suggestion of left radiograph lower lobe may be airspace performed for consolidation. follow-up.

IMPRESSION: The left femoral neck is Nonobstructiv not well seen, e bowel gas this may be pattern. projectional, Hepatomegaly/
if splenomegaly. there is clinical Question concern for a left left lower hip fracture lobe dedicated pneumonia.
hip radiograph may be Resident performed for Radiologist: follow-up. Attending

Radiologist: IMPRESSION: Anthony

Asher RG Nonobstructive Finalizing bowel gas pattern. Radiologist: Anthony

Asher RG Hepatomegaly/splen Transcribed omegaly. Date:

06/25/2018 Question left 16:13 lower lobe Finalized pneumonia. Date: 06/25/2018

<br 16:14 />
Resident Radiologist:
Attending Radiologist: Anthony Sterling MD
Finalizing Radiologist: Anthony Sterling MD
Transcribed Date: 06/25/2018 16:13
Finalized Date: 06/25/2018 16:14

</td> Femoral/P (PACSIMAGE <td> 06/23/2018 [place] opliteal 21:13</td><td> [facility] ) Femoral/Popliteal [facility] Final Result [facility] Corporation Name: </td><td><paragrap ethan CROSS MRN: styleCode="Italics [id number] Sex: ">(PACSIMAGE F : 1960 )</paragraph>
Location: F
Final Admitting Result Physician:

DARIO ROSALES Name: Anahi CROSSing DIANNA Physician:
MRN: DESTINEE MIRANDA [id number] Sex: F Exam: US
DPLX FEM+POP : 1960 VEINS BILAT Location: F 06/23/2018
21:13 Admitting CLINICAL Physician: DARIO INFORMATION: CONNIE Evaluate for
DVT. Requesting TECHNIQUE: Physician: DESTINEE Sonogram of MIRANDA the deep

venous system Exam: US DPLX of the lower FEM+POP VEINS extremities, BILAT 06/23/2018 utilizing 21:13 bob scale

images and CLINICAL color Doppler INFORMATION: flow. Evaluate for DVT. COMPARISON: 06/07/2018

FINDINGS: TECHNIQUE: The right Sonogram of the common deep venous system femoral, of the lower greater extremities, saphenous,
superficial utilizing bob femoral, scale images and and popliteal color Doppler veins show flow. normal

color-flow COMPARISON: and 06/07/2018 compressibili

ty. There FINDINGS: is normal

response to The right common augmentation. femoral, greater The left saphenous, common superficial femoral, femoral, greater
and saphenous, popliteal veins superficial show normal femoral and color-flow and popliteal compressibility. veins show
normal There is normal color-flow response to and augmentation. compressibili

ty. There The left common is normal femoral, greater response to saphenous, augmentation. superficial femoral IMPRESSION:
and 1. No popliteal veins evidence for show normal DVT color-flow and compressibility. Resident
Radiologist: There is normal Attending response to Radiologist: augmentation. Jero Slater

IMPRESSION: Finalizing

Radiologist: 1. No evidence Jero Slater for DVT

<br Transcribed />

Date: Resident 06/23/2018 Radiologist: 22:03
Finalized Attending Date: Radiologist: 06/23/2018 Jero Slater MD 22:03
Finalizing Radiologist: Jero Slater MD
Transcribed Date: 06/23/2018 22:03
Finalized Date: 06/23/2018 22:03

</td> Chest (PACSIMAGE <td> 06/23/2018 [place] Portable 15:48</td><td> [facility] Chest Portable [facility] Final Result </td><td><paragrap Corporat ion Name: ethan CROSS, styleCode="Sujata DIANNA MRN: ">(PACSIMAGE [id number] Sex: F : )</paragraph>
1960
Final Location: F Result Admitting

Physician: Name: CRISPIN CROSS SERVICE
MRN: Requesting [id number] Sex: F Physician:
JUAN JOSE CHE : 1960 Exam: Location: F CHEST
PORTABLE Admitting 06/23/2018 Physician: 16:55 EMERGENCY SERVICE Chest
CLINICAL Requesting HISTORY: Physician: JUAN JOSE CHE protocol

TECHNIQUE: Exam: CHEST Portable PORTABLE COMPARISON: 06/23/2018 16:55 06/06/2018 FINDINGS:

Patient is Chest obliqued to

the left. CLINICAL HISTORY: Low lung Sepsis protocol volumes.

There is TECHNIQUE: diffuse Portable haziness over

the right COMPARISON: lung with 06/06/2018 evidence of

central FINDINGS: pulmonary

venous Patient is congestion. obliqued to the Small pleural left. effusions

Low may be lung volumes. present. There is diffuse There is no haziness over the evidence of right lung pneumothorax.
with The evidence of cardiomediast central pulmonary inal venous congestion. silhouette is Small pleural grossly
unremarkable effusions may be in width present. There is and contour. no evidence of The pulmonary pneumothorax. arteries are
somewhat The prominent. cardiomediastinal IMPRESSION: silhouette is Low grossly volume chest. unremarkable in Central width pulmonary
and venous contour. The congestion pulmonary arteries with possible are somewhat asymmetric prominent. pulmonary

edema on the IMPRESSION: right.

Suspected Low volume chest. enlarged Central pulmonary pulmonary venous congestion arteries with possible which can
reflect asymmetric pulmonary pulmonary edema on artery the right. hypertension. Suspected enlarged pulmonary Resident
Radiologist: arteries which can Attending reflect pulmonary Radiologist: leah Anthony hypertension. Asher RG Finalizing

<br Radiologist: /> Resident Anthony Radiologist: Asher RG
Transcribed Attending Date: Radiologist: 06/23/2018 Anthonyceasar Sterling MD 17:02
Finalized Finalizing Date: Radiologist: 06/23/2018 Anthonyceasar Sterling MD 17:04
Transcribed Date: 06/23/2018 17:02
Finalized Date: 06/23/2018 17:04

</td> Abdomen (PACSIMAGE <td> 06/25/2018 [place] Flat And 15:23</td><td> [facility] ) Abdomen Flat And [facility] Final Result [facility] [employer] Name: </td><td><ethan Hatch MRN: styleCode="Italics [id number] Sex: ">(PACSIMAGE F : 1960 )</paragraph>
Location: F
Final Admitting Result Physician:

DARIO ROSALES Name: TAY, Anahiing DIANNA Physician:
MRN: RIGOBERTO [id number] Sex: F PITCH
Exam: ABDOMEN : 1960 WITH UPRIGHT Location: F 06/25/2018
15:56 Admitting TWO VIEW Physician: DARIO ROSALES INDICATION:
Pain Requesting Supine and Physician: upright views RIGOBERTO SCHUMACHER of the

abdomen were Exam: ABDOMEN obtained. WITH UPRIGHT COMPARISON: 06/25/2018 15:56 06/23/2018 FINDINGS:

There is TWO VIEW ABDOMEN severe hepatic and

splenic INDICATION: Pain enlargement. There is

a nonspecific Supine and upright but non views of the obstructed abdomen were bowel gas obtained. pattern. No

evidence of COMPARISON: free 06/23/2018 intraperitone

al air. FINDINGS: Suggestion of

left lower There is severe lobe airspace hepatic and consolidation splenic . The enlargement. left femoral

neck is not There is a well seen, nonspecific but this may be non obstructed projectional, bowel gas pattern. if there is
clinical No evidence of concern for a free left hip intraperitoneal fracture air. dedicated

hip Suggestion of left radiograph lower lobe may be airspace performed for consolidation. follow-up.

IMPRESSION: The left femoral neck is Nonobstructiv not well seen, e bowel gas this may be pattern. projectional, Hepatomegaly/
if splenomegaly. there is clinical Question concern for a left left lower hip fracture lobe dedicated pneumonia.
hip radiograph may be Resident performed for Radiologist: follow-up. Attending

Radiologist: IMPRESSION: Anthony

Asher RG Nonobstructive Finalizing bowel gas pattern. Radiologist: Anthony

Asher RG Hepatomegaly/splen Transcribed omegaly. Date:

06/25/2018 Question left 16:13 lower lobe Finalized pneumonia. Date: 06/25/2018

<br 16:14 />
Resident Radiologist:
Attending Radiologist: Anthony Sterling MD
Finalizing Radiologist: Anthony Sterling MD
Transcribed Date: 06/25/2018 16:13
Finalized Date: 06/25/2018 16:14

</td> Femoral/P (PACSIMAGE <td> 06/23/2018 [place] opliteal 21:13</td><td> [facility] ) Femoral/Popliteal [facility] Final Result [facility] [employer] Name: </td><td><paragrap ethan CROSS MRN: styleCode="Italics [id number] Sex: ">(PACSIMAGE F : 1960 )</paragraph>
Location: F
Final Admitting Result Physician:

DARIO ROSALES Name: Iain CROSS Physician:
MRN: DESTINEE MIRANDA [id number] Sex: F Exam: US
DPLX FEM+POP : 1960 VEINS BILAT Location: F 06/23/2018
21:13 Admitting CLINICAL Physician: DARIO INFORMATION: CONNIE Evaluate for
DVT. Requesting TECHNIQUE: Physician: DESTINEE Sonogram of MIRANDA the deep

venous system Exam: US DPLX of the lower FEM+POP VEINS extremities, BILAT 06/23/2018 utilizing 21:13 bob scale

images and CLINICAL color Doppler INFORMATION: flow. Evaluate for DVT. COMPARISON: 06/07/2018

FINDINGS: TECHNIQUE: The right Sonogram of the common deep venous system femoral, of the lower greater extremities, saphenous,
superficial utilizing bob femoral, scale images and and popliteal color Doppler veins show flow. normal

color-flow COMPARISON: and 06/07/2018 compressibili

ty. There FINDINGS: is normal

response to The right common augmentation. femoral, greater The left saphenous, common superficial femoral, femoral, greater
and saphenous, popliteal veins superficial show normal femoral and color-flow and popliteal compressibility. veins show
normal There is normal color-flow response to and augmentation. compressibili

ty. There The left common is normal femoral, greater response to saphenous, augmentation. superficial femoral IMPRESSION:
and 1. No popliteal veins evidence for show normal DVT color-flow and compressibility. Resident
Radiologist: There is normal Attending response to Radiologist: augmentation. Jero Slater

IMPRESSION: Finalizing

Radiologist: 1. No evidence Jero Slater for DVT

<br Transcribed />

Date: Resident 06/23/2018 Radiologist: 22:03
Finalized Attending Date: Radiologist: 06/23/2018 Jero Slater MD 22:03
Finalizing Radiologist: Jero Slater MD
Transcribed Date: 06/23/2018 22:03
Finalized Date: 06/23/2018 22:03

</td> Chest (PACSIMAGE <td> 06/23/2018 [place] Portable 15:48</td><td> [facility] Chest Portable [facility] Final Result </td><td><paragrap Corporat ion Name: ethan CROSS styleCode="Sujata BUSTAMANTE MRN: ">(PACSIMAGE [id number] Sex: F : )</paragraph>
1960
Final Location: F Result Admitting

Physician: Name: MANUELE, EMERGENCY DIANNA SERVICE
MRN: Requesting [id number] Sex: F Physician:
JUAN JOSE CHE : 1960 Exam: Location: F CHEST
PORTABLE Admitting 06/23/2018 Physician: 16:55 EMERGENCY SERVICE Chest
CLINICAL Requesting HISTORY: Physician: JUAN JOSE CHE protocol

TECHNIQUE: Exam: CHEST Portable PORTABLE COMPARISON: 06/23/2018 16:55 06/06/2018 FINDINGS:

Patient is Chest obliqued to

the left. CLINICAL HISTORY: Low lung Sepsis protocol volumes.

There is TECHNIQUE: diffuse Portable haziness over

the right COMPARISON: lung with 06/06/2018 evidence of

central FINDINGS: pulmonary

venous Patient is congestion. obliqued to the Small pleural left. effusions

Low may be lung volumes. present. There is diffuse There is no haziness over the evidence of right lung pneumothorax.
with The evidence of cardiomediast central pulmonary inal venous congestion. silhouette is Small pleural grossly
unremarkable effusions may be in width present. There is and contour. no evidence of The pulmonary pneumothorax. arteries are
somewhat The prominent. cardiomediastinal IMPRESSION: silhouette is Low grossly volume chest. unremarkable in Central width pulmonary
and venous contour. The congestion pulmonary arteries with possible are somewhat asymmetric prominent. pulmonary

edema on the IMPRESSION: right.

Suspected Low volume chest. enlarged Central pulmonary pulmonary venous congestion arteries with possible which can
reflect asymmetric pulmonary pulmonary edema on artery the right. hypertension. Suspected enlarged pulmonary Resident
Radiologist: arteries which can Attending reflect pulmonary Radiologist: artery Anthony hypertension. Asher RG Finalizing

<br Radiologist: /> Resident Anthony Radiologist: Asher RG
Transcribed Attending Date: Radiologist: 06/23/2018 Anthonyceasar Sterling MD 17:02
Finalized Finalizing Date: Radiologist: 06/23/2018 Anthony Sterling MD 17:04
Transcribed Date: 06/23/2018 17:02
Finalized Date: 06/23/2018 17:04

</td> Abdomen (PACSIMAGE <td> 06/25/2018 [place] 15:23</td><td> [place] [facility] ) Abdomen [facility] Final Result [facility] [employer] Name: </td><td><paragrap ethan CROSS MRN: styleCode="Italics [id number] Sex: ">(PACSIMAGE F : 1960 )</paragraph>
Location: F
Final Admitting Result Physician:

DARIO ROSALES Name: TAY, Anahiing DIANNA Physician:
MRN: RIGOBERTO [id number] Sex: F PITCH
Exam: ABDOMEN : 1960 WITH UPRIGHT Location: F 06/25/2018
15:56 Admitting TWO VIEW Physician: DARIO ROSALES INDICATION:
Pain Requesting Supine and Physician: upright views RIGOBERTO SCHUMACHER of the

abdomen were Exam: ABDOMEN obtained. WITH UPRIGHT COMPARISON: 06/25/2018 15:56 06/23/2018 FINDINGS:

There is TWO VIEW ABDOMEN severe hepatic and

splenic INDICATION: Pain enlargement. There is

a nonspecific Supine and upright but non views of the obstructed abdomen were bowel gas obtained. pattern. No

evidence of COMPARISON: free 06/23/2018 intraperitone

al air. FINDINGS: Suggestion of

left lower There is severe lobe airspace hepatic and consolidation splenic . The enlargement. left femoral

neck is not There is a well seen, nonspecific but this may be non obstructed projectional, bowel gas pattern. if there is
clinical No evidence of concern for a free left hip intraperitoneal fracture air. dedicated

hip Suggestion of left radiograph lower lobe may be airspace performed for consolidation. follow-up.

IMPRESSION: The left femoral neck is Nonobstructiv not well seen, e bowel gas this may be pattern. projectional, Hepatomegaly/
if splenomegaly. there is clinical Question concern for a left left lower hip fracture lobe dedicated pneumonia.
hip radiograph may be Resident performed for Radiologist: follow-up. Attending

Radiologist: IMPRESSION: Anthony

Asher RG Nonobstructive Finalizing bowel gas pattern. Radiologist: Anthony

Asher RG Hepatomegaly/splen Transcribed omegaly. Date:

06/25/2018 Question left 16:13 lower lobe Finalized pneumonia. Date: 06/25/2018

<br 16:14 />
Resident Radiologist:
Attending Radiologist: Anthony Sterling MD
Finalizing Radiologist: Anthony Sterling MD
Transcribed Date: 06/25/2018 16:13
Finalized Date: 06/25/2018 16:14

</td> ID Date Data Source [id number] 06/29/2018 12:19:51 PM [facility] [id number] Corporation Name Value Range Interpretation Description Data Sup porting Code Source(s) Document(s ) Leukocytes 23.1 k/mm3 4.8-10 <td> 06/29/2018 [place] [#/volume] in .8 06:26</td><td> [facility] Blood by k/mm3 [facility] Automated count </td><td><selene Corporat ion raph styleCode="Bold "> 23.1 H </paragraph>
(4.8-10.8) k/mm3 </td> Erythrocytes 2.49 m/mm3 3.90-5 <td> 06/29/2018 [facility] taya [#/volume] in .20 06:26</td><td> [facility] Blood m/mm3 RBC [facility] Care </td><td><Scribz raph styleCode="Bold "> 2.49 L </paragraph>
(3.90-5.20) m/mm3 </td> Erythrocyte 29.2 % 32.0-3 <td> 06/29/2018 [place] mean 6.0 % 06:26</td><td> [facility] corpuscular MCHC [facility] hemoglobin </td><td><Scribz concentration raph [Mass/volume] styleCode="Bold in Blood from "> Fetus by 29.2 Automated count L </paragraph>
(32.0-36.0) % </td> Hemoglobin 7.1 g/dL 12.0-1 <td> 06/29/2018 [place] [Mass/volume] 6.0 06:26</td><td> [place] in Blood g/dL HGB [facility] </td><td><Scribz raph styleCode="Bold "> 7.1 L </paragraph>
(12.0-16.0) g/dL </td> Erythrocyte 28.5 pg 27.0-3 <td> 06/29/2018 [place] mean 1.5 pg 06:26</td><td> [facility] corpuscular MCH </td><td> Health Care hemoglobin Corporation [Entitic mass] 28.5 by Automated count
(27.0-31.5) pg </td> Erythrocyte 97.6 fL 81.0-9 <td> 06/29/2018 [place] mean 9.0 fL 06:26</td><td> [facility] corpuscular MCV </td><td> Health Care volume [[employer] volume] by 97.6 Automated count
(81.0-99.0) fL </td> Hematocrit 24.3 % 37.0-4 <td> 06/29/2018 [place] [Volume 7.0 % 06:26</td><td> [place] Fraction] of HCT [facility] Blood by </td><td><Scribz Automated count raph styleCode="Bold "> 24.3 L </paragraph>
(37.0-47.0) % </td> Platelet mean 12.6 fL 9.8-12 <td> 06/29/2018 [facility] r volume [Entitic .8 fL 06:26</td><td> County volume] in MPV </td><td> Health Care Blood by Corporation Automated count 12.6
(9.8-12.8) fL </td> Platelets 51 k/mm3 160-41 <td> 06/29/2018 [place] [#/volume] in 0 06:26</td><td> [place] Blood by k/mm3 Platelet Count [facility] Care Automated count </td><td><selene Corporat ion raph styleCode="Bold "> 51 L </paragraph>
(160-410) k/mm3 </td> Erythrocyte 18.0 % 11.5-1 <td> 06/29/2018 [place] distribution 4.5 % 06:26</td><td> [facility] width [Entitic RDW Health Care volume] by </td><td><selene [employer] Automated count raph styleCode="Bold "> 18.0 H </paragraph>
(11.5-14.5) % </td> Lymphocytes 17.0 % 17.0-5 <td> 06/27/2018 [place] [#/volume] in 0.0 % 07:04</td><td> [facility] Blood by Lymphocytes [facility] Care Automated count </td><td> Corporation 17.0
(17.0-50.0) % </td> Monocytes/Leuko 16.0 % 0.0-11 <td> 06/27/[address] [facility] cytes [Pure .0 % 07:04</td><td> [facility] number Monocytes. Health Care fraction] in </td><td><[employer] Blood by raph Automated count styleCode="Bold "> 16.0 H </paragraph>
(0.0-11.0) % </td> Neutrophils [#] 61.0 % 40.0-7 <td> 06/27/[address] [facility] in Body fluid 6.0 % 07:04</td><td> [facility] by Manual count Neutrophils Health Care </td><td> Corporation 61.0
(40.0-76.0) % </td> Basophils+Eosin 1.0 % 0.0-5. <td> 06/27/[address] [facility] ophils+Monocyte 0 % 07:04</td><td> County s [#/volume] in Eosinophils Health Care Blood by </td><td> [place] Automated count 1.0
(0.0-5.0) % </td> Basophils 2.0 % 0.0-2. <td> 06/27/2018 [place] [#/volume] in 0 % 07:04</td><td> [facility] Blood by Basophils [facility] Care Automated count </td><td> [place] 2.0
(0.0-2.0) % </td> Atypical Lymphs 1.0 % % <td> 06/26/[address] [facility] 06:46</td><td> [facility] Atypical Lymphs Health Care </td><td><[employer] graph styleCode="Bold "> 1.0 * AB </paragraph>
% </td> Myelocytes 4.0 % % <td> 06/26/2018 [place] [#/volume] in 06:46</td><td> [facility] Blood by Manual Myelocyte Health Care count </td><td><Scribz raph styleCode="Bold "> 4.0 * AB </paragraph>
% </td> Promyelocytes 2.0 % % <td> 06/24/2018 [facility] r [#/volume] in 06:17</td><td> [facility] Blood by Manual Promyelocyte Health Care count </td><td><Scribz raph styleCode="Bold "> 2.0 * AB </paragraph>
% </td> Metamyelocytes 1.0 % % <td> 06/27/2018 [facility] er [#/volume] in 07:04</td><td> [facility] Blood by Manual Metamyelocytes Health Ca re count </td><td><Scribz raph styleCode="Bold "> 1.0 * AB </paragraph>
% </td> Blasts/100 3.0 % % <td> 06/24/2018 [place] leukocytes in 09:09</td><td> [facility] Body fluid by Blast Health Care Manual count </td><td><selene [employer] raph styleCode="Bold "> 3.0 * AB </paragraph>
% </td> Ovalocytes Few <td> 06/27/2018 [place] [Presence] in 07:04</td><td> [facility] Blood by Light Ovalocytes Health Care microscopy </td><td> [place] Few
</td> Anisocytosis Slight <td> 06/27/2018 [place] [Presence] in 07:04</td><td> [facility] Blood by Light Anisocytosis Health Care microscopy </td><td> [place] Slight
</td> Polychromasia Slight <td> 06/24/2018 Melecio bain [Presence] in 09:09</td><td> [facility] Blood by Light Polychromasia Health Care microscopy </td><td> [place] Slight
</td> Microcytes Slight <td> 06/26/2018 [place] [Presence] in 06:46</td><td> [facility] Blood by Light Microcytic Health Care microscopy </td><td> [place] Slight
</td> Poikilocytosis Slight <td> [facility] in 07:04</td><td> [facility] Blood by Light Poikilocytosis Health Car e microscopy </td><td> [place] Slight
</td> Dacrocytes Few <td> 06/27/2018 [place] [Presence] in 07:04</td><td> [facility] Blood by Light Tear Drop Cells Health Ca re microscopy </td><td> [place] Few
</td> Glucose 92 mg/dL 70-105 <td> 06/29/2018 [place] [Mass/volume] mg/dL 06:26</td><td> [facility] in Blood Glucose-Serum Health Care </td><td> [place] 92
(70-105) mg/dL </td> Sodium 138 mEq/L 135-14 <td> 06/29/2018 [place] [Moles/volume] 5 06:26</td><td> [facility] in Serum or mEq/L Sodium-Serum Health Care Plasma </td><td> [place] 138
(135-145) mEq/L </td> Potassium 4.5 mEq/L 3.5-5. <td> 06/29/2018 [place] [Moles/volume] 1 06:26</td><td> [place] in Serum or mEq/L Potassium-Serum Health Care Plasma </td><td> [place] 4.5
(3.5-5.1) mEq/L </td> Chloride 100 mEq/L 98-107 <td> 06/29/2018 [place] [Moles/volume] mEq/L 06:26</td><td> [facility] in Serum or Chloride Health Care Plasma </td><td> [place] 100
(98-107) mEq/L </td> Urea nitrogen 24 mg/dL 6-22 <td> 06/29/2018 [facility] r [Mass/volume] mg/dL 06:26</td><td> [facility] in Blood BUN Health Care </td><td><selene [place] raph styleCode="Bold "> 24 H </paragraph>
(6-22) mg/dL </td> Aspartate 14 U/L 4-35 <td> 06/27/2018 [place] aminotransferas U/L 07:04</td><td> County e [Enzymatic AST (SGOT) Health Care activity/volume </td><td> [place] ] in Serum or Plasma 14
(4-35) U/L </td> Carbon dioxide, 24 mEq/L 22-30 <td> 06/29/[address] [facility] total mEq/L 06:26</td><td> County [Moles/volume] CO2 </td><td> Health Car e in Serum or Corporation Plasma 24
(22-30) mEq/L </td> Creatinine 0.75 mg/dL 0.57-1 <td> 06/29/2018 [place] [Moles/volume] .11 06:26</td><td> [place] in Serum or mg/dL Creatinine. Health Care Plasma </td><td> [place] 0.75
(0.57-1.11) mg/dL </td> Albumin 3.9 g/dL 3.4-4. <td> 06/27/2018 [place] [Mass/volume] 8 g/dL 07:04</td><td> [facility] in Serum or Albumin Health Care Plasma </td><td> [place] 3.9
(3.4-4.8) g/dL </td> Proteins - 6.6 g/dL 6.4-8. <td> 06/27/2018 [place] Total 3 g/dL 07:04</td><td> [facility] Proteins - [facility] Total [place] </td><td> 6.6
(6.4-8.3) g/dL </td> Alanine 17 U/L 6-55 <td> 06/27/2018 [place] aminotransferas U/L 07:04</td><td> County e [Enzymatic ALT (SGPT) Health Care activity/volume </td><td> [place] ] in Serum or Plasma 17
(6-55) U/L </td> Calcium 9.3 mg/dL 8.6-10 <td> 06/29/2018 [place] [Mass/volume] .2 06:26</td><td> [facility] in Blood mg/dL Calcium [facility] Care </td><td> [place] 9.3
(8.6-10.2) mg/dL </td> Bilirubin.total 0.5 mg/dL 0.2-1. <td> 06/27/[address] [facility] [Mass/volume] 3 07:04</td><td> [facility] in Blood mg/dL Bilirubin - [facility] Care Total [place] </td><td> 0.5
(0.2-1.3) mg/dL </td> Icteric index Not <td> 06/29/2018 [facility] r of Serum or Icteric 06:26</td><td> [facility] Plasma Icteric Index Health Care </td><td> [place] Not Icteric
</td> Lipemic index No Lipemia <td> 06/29/2018 [facility] er of Serum or 06:26</td><td> [facility] Plasma Lipemia Index Health Care </td><td> [place] No Lipemia
</td> Globulin 2.7 gm/dL 2.9-4. <td> 06/27/2018 [place] [Mass/volume] 0 07:04</td><td> [facility] in Serum gm/dL Globulin Health Care </td><td><selene [place] raph styleCode="Bold "> 2.7 L </paragraph>
(2.9-4.0) gm/dL </td> Hemolysis index No <td> 06/29/[address] [facility] of Serum or Hemolysis 06:26</td><td> [facility] Plasma Hemolysis Index [facility] </td><td> [place] No Hemolysis
</td> Anion gap in 14 mEq/L 7-13 <td> 06/29/2018 [place] Serum or Plasma mEq/L 06:26</td><td> [facility] Anion Gap Health Care </td><td><selene [place] raph styleCode="Bold "> 14 H </paragraph>
(7-13) mEq/L </td> Appearance of Slightly-C <td> 06/23/2018 [facility] er Urine loudy 17:30</td><td> [facility] Appearance Health Care </td><td> [place] Slightly-Cloudy
(CLEAR) </td> aPTT panel - 26.3 secs 25.0-3 <td> 06/23/2018 [place] Platelet poor 2.0 15:59</td><td> [facility] plasma secs Partial [facility] Th[facility]oplastin [facility] Time </td><td> 26.3
(25.0-32.0) secs </td> Phosphate 3.9 mg/dL 2.3-4. <td> 06/27/2018 [place] [Mass/volume] 7 07:04</td><td> [place] in Serum or mg/dL Inorganic Health Care Plasma Phosphorus [employer] </td><td> 3.9
(2.3-4.7) mg/dL </td> Prothrombin 11.9 secs 9.8-12 <td> 06/23/2018 [place] time (PT) .0 15:59</td><td> [facility] secs Prothrombin Health Care Time. [place] </td><td> 11.9
(9.8-12.0) secs </td> Protein 2+ (100 <td> 06/23/2018 [place] [Presence] in MG/DL) 17:30</td><td> [facility] Urine by Protein Health Care Automated test Qualitative [place] strip </td><td> 2+ (100 MG/DL)
(NEGATIVE) </td> Specific 1.011 {} 1.000- <td> 06/23/2018 [place] gravity of 1.035 17:30</td><td> [facility] Urine by Test Specific Health Care strip [place] </td><td> 1.011
(1.000-1.035) </td> Urobilinogen 0.2 mg/dL 0.0-2. <td> 06/23/2018 [place] [Presence] in 0 17:30</td><td> [facility] Urine by mg/dL Urobilinogen Health Care Automated test </td><td> [place] strip 0.2
(0.0-2.0) mg/dL </td> Glucose Negative <td> 06/23/2018 [place] [Presence] in 17:30</td><td> [facility] Urine by Test Glucose_ Health Care strip </td><td> Corporation Negative
(NEGATIVE) </td> Nitrite Positive <td> 06/23/2018 [place] [Presence] in 17:30</td><td> [facility] Urine by Test Nitrites Health Care strip </td><td><selene [place] raph styleCode="Bold "> Positive * AB </paragraph>
(NEGATIVE) </td> Erythrocytes 16 /HPF 0-2 <td> 06/23/2018 [place] [#/area] in /HPF 17:30</td><td> [facility] Urine sediment RBC </td><td> Health Car e by Automated [place] count 16
(0-2) /HPF </td> Bacteria MANY <td> 06/23/2018 [place] [#/area] in 17:30</td><td> [facility] Urine sediment Bacteria Health Care by Microscopy </td><td> [place] high power field MANY
(NONE SEEN) /HPF </td> Leukocytes 279 /HPF 0-5 <td> 06/23/2018 [place] [Presence] in /HPF 17:30</td><td> [facility] Urine by WBC </td><td> Health Care Automated [place] 279
(0-5) /HPF </td> Epithelial RARE <td> 06/23/2018 [place] cells [#/area] FEW 17:30</td><td> County in Urine Epithelial Health Care sediment by [employer] Automated count </td><td> RARE
/LPF
FEW

/LPF </td> Leukocyte 3+ <td> 06/23/2018 [place] esterase 17:30</td><td> County [Presence] in Leukocytes Health Care Urine by Test Esterase [place] strip </td><td><selene raph styleCode="Bold "> 3+ * AB </paragraph>
(NEGATIVE) </td> Magnesium 1.9 mg/dL 1.6-2. <td> 06/27/2018 [place] [Mass/volume] 6 07:04</td><td> [place] in Serum or mg/dL Magnesium Level Health Care Plasma </td><td> [place] 1.9
(1.6-2.6) mg/dL </td> Hematocrit 24.3 % 37.0-4 <td> 06/29/2018 [place] [Volume 7.0 % 06:26</td><td> [place] Fraction] of HCT Health Care Blood by </td><td><selene [place] Automated count raph styleCode="Bold "> 24.3 L </paragraph>
(37.0-47.0) % </td> Hemoglobin 7.1 g/dL 12.0-1 <td> 06/29/2018 [place] [Mass/volume] 6.0 06:26</td><td> [place] in Blood g/dL HGB Health Care </td><td><selene [employer] raph styleCode="Bold "> 7.1 L </paragraph>
(12.0-16.0) g/dL </td> Erythrocytes 2.49 m/mm3 3.90-5 <td> 06/29/2018 [facility] r [#/volume] in .20 06:26</td><td> [place] Blood m/mm3 RBC Health Care </td><td><Scribz raph styleCode="Bold "> 2.49 L </paragraph>
(3.90-5.20) m/mm3 </td> Leukocytes 23.1 k/mm3 4.8-10 <td> 06/29/2018 [place] [#/volume] in .8 06:26</td><td> [place] Blood by k/mm3 WBC Health Care Automated count </td><td><selene [employer] ion raph styleCode="Bold "> 23.1 H </paragraph>
(4.8-10.8) k/mm3 </td> Platelet mean 12.6 fL 9.8-12 <td> 06/29/2018 [facility] r volume [Entitic .8 fL 06:26</td><td> County volume] in MPV </td><td> Health Care Blood by Corporation Automated count 12.6
(9.8-12.8) fL </td> Erythrocyte 18.0 % 11.5-1 <td> 06/29/2018 [place] distribution 4.5 % 06:26</td><td> [place] width [Entitic RDW Health Care volume] by </td><td><selene [employer] Automated count raph styleCode="Bold "> 18.0 H </paragraph>
(11.5-14.5) % </td> Erythrocyte 29.2 % 32.0-3 <td> 06/29/2018 [place] mean 6.0 % 06:26</td><td> [facility] corpuscular MCHC Health Care hemoglobin </td><td><selene [place] concentration raph [Mass/volume] styleCode="Bold in Blood from "> Fetus by 29.2 Automated count L </paragraph>
(32.0-36.0) % </td> Erythrocyte 28.5 pg 27.0-3 <td> 06/29/2018 [place] mean 1.5 pg 06:26</td><td> [facility] corpuscular MCH </td><td> Health Care hemoglobin [employer] [Entitic mass] 28.5 by Automated count
(27.0-31.5) pg </td> Erythrocyte 97.6 fL 81.0-9 <td> 06/29/2018 [place] mean 9.0 fL 06:26</td><td> [facility] corpuscular MCV </td><td> Health Care volume [[employer] volume] by 97.6 Automated count
(81.0-99.0) fL </td> Basophils+Eosin 1.0 % 0.0-5. <td> 06/27/[address] [facility] ophils+Monocyte 0 % 07:04</td><td> County s [#/volume] in Eosinophils Health Care Blood by </td><td> Corporation Automated count 1.0
(0.0-5.0) % </td> Monocytes/Leuko 16.0 % 0.0-11 <td> 06/27/[address] [facility] cytes [Pure .0 % 07:04</td><td> [facility] number Monocytes. Health Care fraction] in </td><td><selene [place] Blood by raph Automated count styleCode="Bold "> 16.0 H </paragraph>
(0.0-11.0) % </td> Lymphocytes 17.0 % 17.0-5 <td> 06/27/2018 [place] [#/volume] in 0.0 % 07:04</td><td> [facility] Blood by Lymphocytes Health Care Automated count </td><td> Corporation 17.0
(17.0-50.0) % </td> Platelets 51 k/mm3 160-41 <td> 06/29/2018 [place] [#/volume] in 0 06:26</td><td> [facility] Blood by k/mm3 Platelet Count Health Care Automated count </td><td><[employer] ion raph styleCode="Bold "> 51 L </paragraph>
(160-410) k/mm3 </td> Myelocytes 4.0 % % <td> 06/26/2018 [place] [#/volume] in 06:46</td><td> [facility] Blood by Manual Myelocyte Health Care count </td><td><Scribz raph styleCode="Bold "> 4.0 * AB </paragraph>
% </td> Metamyelocytes 1.0 % % <td> 06/27/2018 [facility] er [#/volume] in 07:04</td><td> [facility] Blood by Manual Metamyelocytes Health Ca re count </td><td><Scribz raph styleCode="Bold "> 1.0 * AB </paragraph>
% </td> Atypical Lymphs 1.0 % % <td> 06/26/[address] [facility] 06:46</td><td> [facility] Atypical Lymphs Health Care </td><td><[employer] graph styleCode="Bold "> 1.0 * AB </paragraph>
% </td> Neutrophils [#] 61.0 % 40.0-7 <td> 06/27/[address] [facility] in Body fluid 6.0 % 07:04</td><td> [facility] by Manual count Neutrophils Health Care </td><td> Corporation 61.0
(40.0-76.0) % </td> Basophils 2.0 % 0.0-2. <td> 06/27/2018 [place] [#/volume] in 0 % 07:04</td><td> [facility] Blood by Basophils Health Care Automated count </td><td> Corporation 2.0
(0.0-2.0) % </td> Microcytes Slight <td> 06/26/2018 [place] [Presence] in 06:46</td><td> [facility] Blood by Light Microcytic Health Care microscopy </td><td> [place] Slight
</td> Poikilocytosis Slight <td> 06/27/2018 [facility] er [Presence] in 07:04</td><td> [facility] Blood by Light Poikilocytosis Health Car e microscopy </td><td> [place] Slight
</td> Anisocytosis Slight <td> 06/27/2018 [place] [Presence] in 07:04</td><td> [facility] Blood by Light Anisocytosis Health Care microscopy </td><td> [place] Slight
</td> Blasts/100 3.0 % % <td> 06/24/2018 [place] leukocytes in 09:09</td><td> [facility] Body fluid by Blast Health Care Manual count </td><td><Scribz raph styleCode="Bold "> 3.0 * AB </paragraph>
% </td> Promyelocytes 2.0 % % <td> 06/24/2018 [facility] r [#/volume] in 06:17</td><td> [facility] Blood by Manual Promyelocyte Health Care count </td><td><Scribz raph styleCode="Bold "> 2.0 * AB </paragraph>
% </td> Sodium 138 mEq/L 135-14 <td> 06/29/2018 [place] [Moles/volume] 5 06:26</td><td> [facility] in Serum or mEq/L Sodium-Serum Health Care Plasma </td><td> [place] 138
(135-145) mEq/L </td> Glucose 92 mg/dL 70-105 <td> 06/29/2018 [place] [Mass/volume] mg/dL 06:26</td><td> [facility] in Blood Glucose-Serum Health Care </td><td> [place] 92
(70-105) mg/dL </td> Dacrocytes Few <td> 06/27/2018 [place] [Presence] in 07:04</td><td> [facility] Blood by Light Tear Drop Cells Health Ca re microscopy </td><td> Corporation Few
</td> Ovalocytes Few <td> 06/27/2018 [place] [Presence] in 07:04</td><td> [facility] Blood by Light Ovalocytes Health Care microscopy </td><td> [place] Few
</td> Polychromasia Slight <td> [facility] in 09:09</td><td> [facility] Blood by Light Polychromasia Health Care microscopy </td><td> [place] Slight
</td> Creatinine 0.75 mg/dL 0.57-1 <td> 06/29/2018 [place] [Moles/volume] .11 06:26</td><td> County in Serum or mg/dL Creatinine. Health Care Plasma </td><td> [place] 0.75
(0.57-1.11) mg/dL </td> Urea nitrogen 24 mg/dL 6-22 <td> [facility] [Mass/volume] mg/dL 06:26</td><td> [facility] in Blood BUN Health Care </td><td><selene [employer] raph styleCode="Bold "> 24 H </paragraph>
(6-22) mg/dL </td> Carbon dioxide, 24 mEq/L 22-30 <td> 06/29/2018 [facility] total mEq/L 06:26</td><td> [facility] [Moles/volume] CO2 </td><td> Health Car e in Serum or Corporation Plasma 24
(22-30) mEq/L </td> Chloride 100 mEq/L 98-107 <td> 06/29/2018 [place] [Moles/volume] mEq/L 06:26</td><td> County in Serum or Chloride Health Care Plasma </td><td> [place] 100
(98-107) mEq/L </td> Potassium 4.5 mEq/L 3.5-5. <td> 06/29/2018 [place] [Moles/volume] 1 06:26</td><td> [place] in Serum or mEq/L Potassium-Serum Health Care Plasma </td><td> [place] 4.5
(3.5-5.1) mEq/L </td> Albumin 3.9 g/dL 3.4-4. <td> 06/27/2018 [place] [Mass/volume] 8 g/dL 07:04</td><td> [facility] in Serum or Albumin Health Care Plasma </td><td> [place] 3.9
(3.4-4.8) g/dL </td> Proteins - 6.6 g/dL 6.4-8. <td> 06/27/2018 [place] Total 3 g/dL 07:04</td><td> [facility] Proteins - [facility] [employer] </td><td> 6.6
(6.4-8.3) g/dL </td> Bilirubin.total 0.5 mg/dL 0.2-1. <td> 06/27/[address] [facility] [Mass/volume] 3 07:04</td><td> [facility] in Blood mg/dL Bilirubin - [employer] </td><td> 0.5
(0.2-1.3) mg/dL </td> Alanine 17 U/L 6-55 <td> 06/27/2018 [place] aminotransferas U/L 07:04</td><td> County e [Enzymatic ALT (SGPT) Health Care activity/volume </td><td> [place] ] in Serum or Plasma 17
(6-55) U/L </td> Aspartate 14 U/L 4-35 <td> 06/27/2018 [place] aminotransferas U/L 07:04</td><td> County e [Enzymatic AST (SGOT) Health Care activity/volume </td><td> [place] ] in Serum or Plasma 14
(4-35) U/L </td> Hemolysis index No <td> 06/29/[address] [facility] of Serum or Hemolysis 06:26</td><td> [facility] Plasma Hemolysis Index Health [facility] </td><td> [place] No Hemolysis
</td> Globulin 2.7 gm/dL 2.9-4. <td> 06/27/2018 [place] [Mass/volume] 0 07:04</td><td> [place] in Serum gm/dL Globulin Health Care </td><td><Sc[employer] raph styleCode="Bold "> 2.7 L </paragraph>
(2.9-4.0) gm/dL </td> Anion gap in 14 mEq/L 7-13 <td> 06/29/2018 [place] Serum or Plasma mEq/L 06:26</td><td> [facility] Anion Gap Health Care </td><td><Scribz raph styleCode="Bold "> 14 H </paragraph>
(7-13) mEq/L </td> Calcium 9.3 mg/dL 8.6-10 <td> 06/29/2018 [place] [Mass/volume] .2 06:26</td><td> [facility] in Blood mg/dL Calcium Health Care </td><td> [place] 9.3
(8.6-10.2) mg/dL </td> aPTT panel - 26.3 secs 25.0-3 <td> 06/23/2018 [place] Platelet poor 2.0 15:59</td><td> [facility] plasma secs Partial Health Care Thromboplastin [place] Time </td><td> 26.3
(25.0-32.0) secs </td> Prothrombin 11.9 secs 9.8-12 <td> 06/23/2018 [place] time (PT) .0 15:59</td><td> [facility] secs Prothrombin Health Care Time. [place] </td><td> 11.9
(9.8-12.0) secs </td> Phosphate 3.9 mg/dL 2.3-4. <td> 06/27/2018 [place] [Mass/volume] 7 07:04</td><td> [place] in Serum or mg/dL Inorganic Health Care Plasma Phosphorus [place] </td><td> 3.9
(2.3-4.7) mg/dL </td> Icteric index Not <td> 06/29/2018 [facility] r of Serum or Icteric 06:26</td><td> [facility] Plasma Icteric Index Health Care </td><td> Corporation Not Icteric
</td> Lipemic index No Lipemia <td> 06/29/2018 [facility] er of Serum or 06:26</td><td> [facility] Plasma Lipemia Index Health Care </td><td> Corporation No Lipemia
</td> Urobilinogen 0.2 mg/dL 0.0-2. <td> 06/23/2018 [place] [Presence] in 0 17:30</td><td> [facility] Urine by mg/dL Urobilinogen [facility] Automated test </td><td> [employer] strip 0.2
(0.0-2.0) mg/dL </td> Glucose Negative <td> 06/23/2018 [place] [Presence] in 17:30</td><td> [facility] Urine by Test Glucose_ [facility] Care strip </td><td> [place] Negative
(NEGATIVE) </td> Protein 2+ (100 <td> 06/23/2018 [place] [Presence] in MG/DL) 17:30</td><td> [facility] Urine by Protein [facility] Automated test [employer] strip </td><td> 2+ (100 MG/DL)
(NEGATIVE) </td> Specific 1.011 {} 1.000- <td> 06/23/2018 [place] gravity of 1.035 17:30</td><td> [facility] Urine by Test Specific [facility] Care strip [employer] </td><td> 1.011
(1.000-1.035) </td> Appearance of Slightly-C <td> 06/23/2018 [facility] er Urine loudy 17:30</td><td> [facility] Appearance [facility] Care </td><td> [place] Slightly-Cloudy
(CLEAR) </td> Bacteria MANY <td> 06/23/2018 [place] [#/area] in 17:30</td><td> [facility] Urine sediment Bacteria [facility] by Microscopy </td><td> [employer] high power field MANY
(NONE SEEN) /HPF </td> Erythrocytes 16 /HPF 0-2 <td> 06/23/2018 [place] [#/area] in /HPF 17:30</td><td> [facility] Urine sediment RBC </td><td> Health Car e by [employer] count 16
(0-2) /HPF </td> Leukocytes 279 /HPF 0-5 <td> 06/23/2018 [place] [Presence] in /HPF 17:30</td><td> [facility] Urine by WBC </td><td> [facility] [employer] 279
(0-5) /HPF </td> Leukocyte 3+ <td> 06/23/2018 [place] esterase 17:30</td><td> [facility] [Presence] in Leukocytes [facility] Urine by Test Esterase [employer] strip </td><td><selene raph styleCode="Bold "> 3+ * AB </paragraph>
(NEGATIVE) </td> Nitrite Positive <td> 06/23/2018 [place] [Presence] in 17:30</td><td> [facility] Urine by Test Nitrites [facility] strip </td><td><selene [employer] raph styleCode="Bold "> Positive * AB </paragraph>
(NEGATIVE) </td> Magnesium 1.9 mg/dL 1.6-2. <td> 06/27/2018 [place] [Mass/volume] 6 07:04</td><td> [place] in Serum or mg/dL Magnesium Level [facility] Plasma </td><td> Corporation 1.9
(1.6-2.6) mg/dL </td> Epithelial RARE <td> 06/23/2018 [place] cells [#/area] FEW 17:30</td><td> [facility] in Urine Epithelial [facility] sediment by [employer] Automated count </td><td> RARE
/LPF
FEW

/LPF </td> Hematocrit 24.3 % 37.0-4 <td> 06/29/2018 [place] [Volume 7.0 % 06:26</td><td> County Fraction] of HCT [facility] Blood by </td><td><[employer] Automated count raph styleCode="Bold "> 24.3 L </paragraph>
(37.0-47.0) % </td> Hemoglobin 7.1 g/dL 12.0-1 <td> 06/29/2018 [place] [Mass/volume] 6.0 06:26</td><td> [place] in Blood g/dL HGB Health Care </td><td><Scribz raph styleCode="Bold "> 7.1 L </paragraph>
(12.0-16.0) g/dL </td> Erythrocytes 2.49 m/mm3 3.90-5 <td> 06/29/2018 [facility] r [#/volume] in .20 06:26</td><td> [facility] Blood m/mm3 RBC Health Care </td><td><Scribz raph styleCode="Bold "> 2.49 L </paragraph>
(3.90-5.20) m/mm3 </td> Leukocytes 23.1 k/mm3 4.8-10 <td> 06/29/2018 [place] [#/volume] in .8 06:26</td><td> [facility] Blood by k/mm3 WBC Health Care Automated count </td><td><ChangeCorpat ion raph styleCode="Bold "> 23.1 H </paragraph>
(4.8-10.8) k/mm3 </td> Erythrocyte 18.0 % 11.5-1 <td> 06/29/2018 [place] distribution 4.5 % 06:26</td><td> [facility] width [Entitic RDW Health Care volume] by </td><td><Scribz Automated count raph styleCode="Bold "> 18.0 H </paragraph>
(11.5-14.5) % </td> Erythrocyte 29.2 % 32.0-3 <td> 06/29/2018 [place] mean 6.0 % 06:26</td><td> [facility] corpuscular MCHC Health Care hemoglobin </td><td><selene Corporation concentration raph [Mass/volume] styleCode="Bold in Blood from "> Fetus by 29.2 Automated count L </paragraph>
(32.0-36.0) % </td> Erythrocyte 28.5 pg 27.0-3 <td> 06/29/2018 [place] mean 1.5 pg 06:26</td><td> [facility] corpuscular MCH </td><td> Health Care hemoglobin Corporation [Entitic mass] 28.5 by Automated count
(27.0-31.5) pg </td> Erythrocyte 97.6 fL 81.0-9 <td> 06/29/2018 [place] mean 9.0 fL 06:26</td><td> [facility] corpuscular MCV </td><td> Health Care volume [[employer] volume] by 97.6 Automated count
(81.0-99.0) fL </td> Lymphocytes 17.0 % 17.0-5 <td> 06/27/2018 [place] [#/volume] in 0.0 % 07:04</td><td> [facility] Blood by Lymphocytes Health Care Automated count </td><td> Corporation 17.0
(17.0-50.0) % </td> Platelets 51 k/mm3 160-41 <td> 06/29/2018 [place] [#/volume] in 0 06:26</td><td> [facility] Blood by k/mm3 Platelet Count Health Care Automated count </td><td><selene Corporat ion raph styleCode="Bold "> 51 L </paragraph>
(160-410) k/mm3 </td> Platelet mean 12.6 fL 9.8-12 <td> 06/29/2018 [facility] r volume [Entitic .8 fL 06:26</td><td> County volume] in MPV </td><td> Health Care Blood by Corporation Automated count 12.6
(9.8-12.8) fL </td> Basophils 2.0 % 0.0-2. <td> 06/27/2018 [place] [#/volume] in 0 % 07:04</td><td> [facility] Blood by Basophils Health Care Automated count </td><td> [place] 2.0
(0.0-2.0) % </td> Basophils+Eosin 1.0 % 0.0-5. <td> 06/27/[address] [facility] ophils+Monocyte 0 % 07:04</td><td> County s [#/volume] in Eosinophils Health Care Blood by </td><td> Corporation Automated count 1.0
(0.0-5.0) % </td> Monocytes/Leuko 16.0 % 0.0-11 <td> 06/27/[address] [facility] cytes [Pure .0 % 07:04</td><td> [facility] number Monocytes. Health Care fraction] in </td><td><Scribz Blood by raph Automated count styleCode="Bold "> 16.0 H </paragraph>
(0.0-11.0) % </td> Metamyelocytes 1.0 % % <td> 06/27/2018 [facility] er [#/volume] in 07:04</td><td> [facility] Blood by Manual Metamyelocytes Health Ca re count </td><td><Scribz raph styleCode="Bold "> 1.0 * AB </paragraph>
% </td> Atypical Lymphs 1.0 % % <td> 06/26/[address] [facility] 06:46</td><td> [facility] Atypical Lymphs Health Care </td><td><[employer] graph styleCode="Bold "> 1.0 * AB </paragraph>
% </td> Neutrophils [#] 61.0 % 40.0-7 <td> 06/27/[address] [facility] in Body fluid 6.0 % 07:04</td><td> [facility] by Manual count Neutrophils Health Care </td><td> [place] 61.0
(40.0-76.0) % </td> Poikilocytosis Slight <td> 06/27/2018 [facility] er [Presence] in 07:04</td><td> [facility] Blood by Light Poikilocytosis Health Car e microscopy </td><td> [place] Slight
</td> Anisocytosis Slight <td> 06/27/2018 [place] [Presence] in 07:04</td><td> [facility] Blood by Light Anisocytosis Health Care microscopy </td><td> [place] Slight
</td> Blasts/100 3.0 % % <td> 06/24/2018 [place] leukocytes in 09:09</td><td> [facility] Body fluid by Blast Health Care Manual count </td><td><Scribz raph styleCode="Bold "> 3.0 * AB </paragraph>
% </td> Promyelocytes 2.0 % % <td> 06/24/2018 [facility] r [#/volume] in 06:17</td><td> [facility] Blood by Manual Promyelocyte Health Care count </td><td><Scribz raph styleCode="Bold "> 2.0 * AB </paragraph>
% </td> Myelocytes 4.0 % % <td> 06/26/2018 [place] [#/volume] in 06:46</td><td> [facility] Blood by Manual Myelocyte Health Care count </td><td><Scribz raph styleCode="Bold "> 4.0 * AB </paragraph>
% </td> Glucose 92 mg/dL 70-105 <td> 06/29/2018 [place] [Mass/volume] mg/dL 06:26</td><td> [facility] in Blood Glucose-Serum Health Care </td><td> [place] 92
(70-105) mg/dL </td> Dacrocytes Few <td> 06/27/2018 [place] [Presence] in 07:04</td><td> [facility] Blood by Light Tear Drop Cells Health Ca re microscopy </td><td> [place] Few
</td> Ovalocytes Few <td> 06/27/2018 [place] [Presence] in 07:04</td><td> [facility] Blood by Light Ovalocytes Health Care microscopy </td><td> [place] Few
</td> Polychromasia Slight <td> [facility] [Pres[facility]] in 09:09</td><td> [facility] Blood by Light Polychromasia Health Care microscopy </td><td> [place] Slight
</td> Microcytes Slight <td> 06/26/2018 [place] [Presence] in 06:46</td><td> [facility] Blood by Light Microcytic Health Care microscopy </td><td> [place] Slight
</td> Urea nitrogen 24 mg/dL 6-22 <td> [facility]29/[facility] [Mass/volume] mg/dL 06:26</td><td> [facility] in Blood BUN Health Care </td><td><selene [place] raph styleCode="Bold "> 24 H </paragraph>
(6-22) mg/dL </td> Carbon dioxide, 24 mEq/L 22-30 <td> 06/29/[address] [facility] [address] total mEq/L 06:26</td><td> [facility] [Moles/volume] CO2 </td><td> Health Car e in Serum or Corporation Plasma 24
(22-30) mEq/L </td> Chloride 100 mEq/L 98-107 <td> 06/29/2018 [place] [Moles/volume] mEq/L 06:26</td><td> [facility] in Serum or Chloride Health Care Plasma </td><td> [place] 100
(98-107) mEq/L </td> Potassium 4.5 mEq/L 3.5-5. <td> 06/29/2018 [place] [Moles/volume] 1 06:26</td><td> [facility] in Serum or mEq/L Potassium-Serum Health Care Plasma </td><td> [place] 4.5
(3.5-5.1) mEq/L </td> Sodium 138 mEq/L 135-14 <td> 06/29/2018 [place] [Moles/volume] 5 06:26</td><td> [facility] in Serum or mEq/L Sodium-Serum Health Care Plasma </td><td> [place] 138
(135-145) mEq/L </td> Bilirubin.total 0.5 mg/dL 0.2-1. <td> 06/27/[address] [facility] [Mass/volume] 3 07:04</td><td> [facility] in Blood mg/dL Bilirubin - Health Care Total Corporation </td><td> 0.5
(0.2-1.3) mg/dL </td> Alanine 17 U/L 6-55 <td> 06/27/2018 [place] aminotransferas U/L 07:04</td><td> County e [Enzymatic ALT (SGPT) Health Care activity/volume </td><td> [place] ] in Serum or Plasma 17
(6-55) U/L </td> Aspartate 14 U/L 4-35 <td> 06/27/2018 [place] aminotransferas U/L 07:04</td><td> County e [Enzymatic AST (SGOT) Health Care activity/volume </td><td> [place] ] in Serum or Plasma 14
(4-35) U/L </td> Creatinine 0.75 mg/dL 0.57-1 <td> 06/29/2018 [place] [Moles/volume] .11 06:26</td><td> [facility] in Serum or mg/dL Creatinine. Health Care Plasma </td><td> [place] 0.75
(0.57-1.11) mg/dL </td> Globulin 2.7 gm/dL 2.9-4. <td> 06/27/2018 [place] [Mass/volume] 0 07:04</td><td> [facility] in Serum gm/dL Globulin Health Care </td><td><Scribz raph styleCode="Bold "> 2.7 L </paragraph>
(2.9-4.0) gm/dL </td> Anion gap in 14 mEq/L 7-13 <td> 06/29/2018 [place] Serum or Plasma mEq/L 06:26</td><td> County Anion Gap Health Care </td><td><Scribz raph styleCode="Bold "> 14 H </paragraph>
(7-13) mEq/L </td> Calcium 9.3 mg/dL 8.6-10 <td> 06/29/2018 [place] [Mass/volume] .2 06:26</td><td> [facility] in Blood mg/dL Calcium Health Care </td><td> [place] 9.3
(8.6-10.2) mg/dL </td> Albumin 3.9 g/dL 3.4-4. <td> 06/27/2018 [place] [Mass/volume] 8 g/dL 07:04</td><td> [facility] in Serum or Albumin Health Care Plasma </td><td> [place] 3.9
(3.4-4.8) g/dL </td> Proteins - 6.6 g/dL 6.4-8. <td> 06/27/2018 [place] Total 3 g/dL 07:04</td><td> [facility] Proteins - Health Care Total [facility] </td><td> 6.6
(6.4-8.3) g/dL </td> Phosphate 3.9 mg/dL 2.3-4. <td> 06/27/2018 [place] [Mass/volume] 7 07:04</td><td> [facility] in Serum or mg/dL Inorganic Health Care Plasma Phosphorus [facility] </td><td> 3.9
(2.3-4.7) mg/dL </td> Icteric index Not <td> 06/29/2018 [facility] r of Serum or Icteric 06:26</td><td> [facility] Plasma Icteric Index [facility] </td><td> [place] Not Icteric
</td> Lipemic index No Lipemia <td> 06/29/2018 [facility] er of Serum or 06:26</td><td> [facility] Plasma Lipemia Index Health [facility] </td><td> [place] No Lipemia
</td> Hemolysis index No <td> 06/29/[address] [facility] [address] of Serum or Hemolysis 06:26</td><td> County Plasma Hemolysis Index Health Care </td><td> [place] No Hemolysis
</td> Protein 2+ (100 <td> 06/23/2018 [place] [Presence] in MG/DL) 17:30</td><td> [facility] Urine by Protein Health Care Automated test [employer] strip </td><td> 2+ (100 MG/DL)
(NEGATIVE) </td> Specific 1.011 {} 1.000- <td> 06/23/2018 [place] gravity of 1.035 17:30</td><td> [facility] Urine by Test Specific Health Care strip [place] </td><td> 1.011
(1.000-1.035) </td> Appearance of Slightly-C <td> 06/23/2018 [facility] er Urine loudy 17:30</td><td> [facility] Appearance Health Care </td><td> Corporation Slightly-Cloudy
(CLEAR) </td> aPTT panel - 26.3 secs 25.0-3 <td> 06/23/2018 [place] Platelet poor 2.0 15:59</td><td> [facility] plasma secs Partial Health Care Thromboplastin [place] Time </td><td> 26.3
(25.0-32.0) secs </td> Prothrombin 11.9 secs 9.8-12 <td> 06/23/2018 [place] time (PT) .0 15:59</td><td> [facility] secs Prothrombin Health Care Time. Corporation </td><td> 11.9
(9.8-12.0) secs </td> Leukocytes 279 /HPF 0-5 <td> 06/23/2018 [place] [Presence] in /HPF 17:30</td><td> [facility] Urine by WBC </td><td> Health Care [employer]ated [employer] 279
(0-5) /HPF </td> Leukocyte 3+ <td> 06/23/2018 [place] esterase 17:30</td><td> [facility] [Presence] in Leukocytes Health Care Urine by Test Esterase Corporation strip </td><td><selene raph styleCode="Bold "> 3+ * AB </paragraph>
(NEGATIVE) </td> Nitrite Positive <td> 06/23/2018 [place] [Presence] in 17:30</td><td> [facility] Urine by Test Nitrites Health Care strip </td><td><selene [place] raph styleCode="Bold "> Positive * AB </paragraph>
(NEGATIVE) </td> Urobilinogen 0.2 mg/dL 0.0-2. <td> 06/23/2018 [place] [Presence] in 0 17:30</td><td> [facility] Urine by mg/dL Urobilinogen Health Care Automated test </td><td> Corporation strip 0.2
(0.0-2.0) mg/dL </td> Glucose Negative <td> 06/23/2018 [place] [Presence] in 17:30</td><td> [facility] Urine by Test Glucose_ Health Care strip </td><td> Corporation Negative
(NEGATIVE) </td> Magnesium 1.9 mg/dL 1.6-2. <td> 06/27/2018 [place] [Mass/volume] 6 07:04</td><td> [facility] in Serum or mg/dL Magnesium Level Health Care Plasma </td><td> [place] 1.9
(1.6-2.6) mg/dL </td> Epithelial RARE <td> 06/23/2018 [place] cells [#/area] FEW 17:30</td><td> [facility] in Urine Epithelial Health Care sediment by [employer] Automated count </td><td> RARE
/LPF
FEW

/LPF </td> Bacteria MANY <td> 06/23/2018 [place] [#/area] in 17:30</td><td> [facility] Urine sediment Bacteria Health Care by Microscopy </td><td> [place] high power field MANY
(NONE SEEN) /HPF </td> Erythrocytes 16 /HPF 0-2 <td> 06/23/2018 [place] [#/area] in /HPF 17:30</td><td> [facility] Urine sediment RBC </td><td> Health Car e by Automated [employer] count 16
(0-2) /HPF </td> Procedure Social History Code Duration Value Status Description Data Source(s ) Smoking Never smoker completed Never smoker [facility] Vital Signs ID Date Data Source UNK Name Value Range Interpretation Code Description Data Source(s) Diastolic blood 67 {} Normal (applies to 67 {} [place] pressure non-numeric results) [facility] Corpor[facility] on Systolic blood 121 {} Normal (applies to 121 {} [place] pressure non-numeric results) [facility] Corpor[facility] on First Respiration 17.0000 {} Normal (applies to 17.0000 {} [place] rate Set non-numeric results) [facility] ty [facility] Corporati on Heart rate 90.0000 {} Normal (applies to 90.0000 {} [place] non-numeric results) [facility] ty [facility] Corporati on Body temperature 97.7000 {} Normal (applies to 97.7000 {} [place] non-numeric results) Coun ty [facility] Corporati on Diastolic blood 64 {} Normal (applies to 64 {} [place] pressure non-numeric results) [facility] Corporati on Systolic blood 109 {} Normal (applies to 109 {} [place] pressure non-numeric results) Coun ty [facility] Corporati on First Respiration 17.0000 {} Normal (applies to 17.0000 {} [place] rate Set non-numeric results) Coun ty [facility] Corporati on Heart rate 85.0000 {} Normal (applies to 85.0000 {} [place] non-numeric results) [facility] Corporati on Body temperature 97.1000 {} Normal (applies to 97.1000 {} [place] non-numeric results) [facility] Corporati on wt - obtain Normal (applies to {} [place] non-numeric results) [facility] Corporati on weight - kg 62.7270 {} Normal (applies to 62.7270 {} [place] non-numeric results) [facility] Corpor[facility] on Diastolic blood 50 {} Normal (applies to 50 {} [place] pressure non-numeric results) [facility] Corporati on Systolic blood 103 {} Normal (applies to 103 {} [place] pressure non-numeric results) Coun ty [facility] Corporati on First Respiration 17.0000 {} Normal (applies to 17.0000 {} [place] rate Set non-numeric results) [facility] ty [facility] Corporati on Heart rate 87.0000 {} Normal (applies to 87.0000 {} [place] non-numeric results) [facility] Corporati on Body temperature 97.9000 {} Normal (applies to 97.9000 {} [place] non-numeric results) Coun ty [facility] Corporati on Mean blood 72.0000 {} Normal (applies to 72.0000 {} [place] pressure non-numeric results) [facility] ty [facility] Corporati on Diastolic blood 58 {} Normal (applies to 58 {} [place] pressure non-numeric results) [facility] Corporati on Systolic blood 94 {} Normal (applies to 94 {} [place] pressure non-numeric results) Coun ty [facility] Corporati on First Respiration 18.0000 {} Normal (applies to 18.0000 {} [place] rate Set non-numeric results) Coun ty [facility] Corporati on Heart rate 78.0000 {} Normal (applies to 78.0000 {} [place] non-numeric results) Coun ty [facility] Corporati on Body temperature 97.2000 {} Normal (applies to 97.2000 {} [place] non-numeric results) Coun ty [facility] Corporati on wt - obtain Normal (applies to {} [place] non-numeric results) [facility] Corporati on weight - kg 65.0000 {} Normal (applies to 65.0000 {} [place] non-numeric results) [facility] Corporati on Diastolic blood 72 {} Normal (applies to 72 {} [place] pressure non-numeric results) [facility] Corporati on Systolic blood 133 {} Normal (applies to 133 {} [place] pressure non-numeric results) [facility] Corporati on First Respiration 20.0000 {} Normal (applies to 20.0000 {} [place] rate Set non-numeric results) Coun ty [facility] Corporati on Heart rate 89.0000 {} Normal (applies to 89.0000 {} [place] non-numeric results) Coun ty [facility] Corporati on Body temperature 97.1000 {} Normal (applies to 97.1000 {} [place] non-numeric results) Coun ty [facility] Corporati on Diastolic blood 58 {} Normal (applies to 58 {} [place] pressure non-numeric results) Coun ty [facility] Corporati on Systolic blood 120 {} Normal (applies to 120 {} [place] pressure non-numeric results) Coun ty [facility] Corporati on First Respiration 19.0000 {} Normal (applies to 19.0000 {} [place] rate Set non-numeric results) Coun ty [facility] Corporati on Heart rate 93.0000 {} Normal (applies to 93.0000 {} [place] non-numeric results) Coun ty [facility] Corporati on Body temperature 99.1000 {} Normal (applies to 99.1000 {} [place] non-numeric results) Coun ty [facility] Corporati on wt - obtain Normal (applies to {} [place] non-numeric results) Coun ty [facility] Corporati on weight - kg 70.4540 {} Normal (applies to 70.4540 {} [place] non-numeric results) Coun ty [facility] Corporati on First Respiration 18.0000 {} Normal (applies to 18.0000 {} [place] rate Set non-numeric results) Coun ty [facility] Corporati on Heart rate 97.0000 {} Normal (applies to 97.0000 {} [place] non-numeric results) Coun ty [facility] Corporati on Body temperature 97.4000 {} Normal (applies to 97.4000 {} [place] non-numeric results) Coun ty [facility] Corporati on Diastolic blood 75 {} Normal (applies to 75 {} [place] pressure non-numeric results) Coun ty [facility] Corporati on Systolic blood 138 {} Normal (applies to 138 {} [place] pressure non-numeric results) Coun ty [facility] Corporati on Diastolic blood 61 {} Normal (applies to 61 {} [place] pressure non-numeric results) Coun ty [facility] Corporati on Systolic blood 122 {} Normal (applies to 122 {} [place] pressure non-numeric results) Coun ty [facility] Corporati on First Respiration 17.0000 {} Normal (applies to 17.0000 {} [place] rate Set non-numeric results) Coun ty [facility] Corporati on Heart rate 91.0000 {} Normal (applies to 91.0000 {} [place] non-numeric results) Coun ty [facility] Corporati on Body temperature 98.8000 {} Normal (applies to 98.8000 {} [place] non-numeric results) Coun ty [facility] Corporati on wt - obtain Normal (applies to {} [place] non-numeric results) Coun ty [facility] Corporati on weight - kg 73.4000 {} Normal (applies to 73.4000 {} [place] non-numeric results) Coun ty [facility] Corporati on wt - obtain Normal (applies to {} [place] non-numeric results) Coun ty [facility] Corporati on weight - kg 67.5000 {} Normal (applies to 67.5000 {} [place] non-numeric results) Coun ty [facility] Corporati on Diastolic blood 77 {} Normal (applies to 77 {} [place] pressure non-numeric results) Coun ty [facility] Corporati on Systolic blood 124 {} Normal (applies to 124 {} [place] pressure non-numeric results) Coun ty [facility] Corporati on First Respiration 19.0000 {} Normal (applies to 19.0000 {} [place] rate Set non-numeric results) Coun ty [facility] Corporati on Heart rate 64.0000 {} Normal (applies to 64.0000 {} [place] non-numeric results) Coun ty [facility] Corporati on Body temperature 98.0000 {} Normal (applies to 98.0000 {} [place] non-numeric results) Coun ty [facility] Care Corporati on
--- NOTE | 2020-04-30 20:43 | PDOC ---
*Physical Exam - Vital Signs Last Vital Signs Temp Pulse Resp BP Pulse Ox 98.3 F 105 H 20 123/78 96 04/30/20 18:10 04/30/20 18:10 04/30/20 18:10 04/30/20 18:10 04/30/20 18:10 ED Treatment Course - Medications Given in the ED: ED Medications Discontinued Medications Generic Name Dose Route Start Last Admin Trade Name Edgar PRN Reason Stop Dose Admin Ibuprofen 400 mg 04/30/20 18:30 04/30/20 18:37 Motrin - PO 04/30/20 18:31 400 mg ONCE ONE Administration ED Progress Note - Progress Note Progress Note: Care of this patient received from Dr. Gustafson. Right pelvis/right femur/right knee x-rays performed and interpreted by Dr. Melendrez of the radiology staff. No evidence of fracture or dislocation but there are signs of significant attenuation within the pelvic and femur. Patient has a history of myelofibrosis; she is followed closely by oncologist in [place]. She has periodic laboratory tests performed and a bone marrow biopsy was taken approximately a month ago to fully rule out leukemia (patient states that it was ruled out). Patient's left eye was examined: She has a large sub-conjunctival hemorrhage of the lateral aspect of the eye. Cornea/anterior chamber/pupil are all without evidence of injury. Patient states that she has thrombocytopenia and "easy bleeding". She was reassured that the sub-conjunctival hemorrhage should absorb by itself; if there was any oozing from the area she could placed gentle pressure to the area. Referral to logistics planner () if she has persistent discomfort in the eye or any vision changes. Patient states that the ibuprofen that she received earlier in her ER visit has "worn off" and she requires more analgesia for her hip and femur pain. Patient states that she has received oxycodone/Percocet in the past without sensitivities or side effects. She states that she will be mainly at bed rest anyway because of her multiple sclerosis and her recent injury. Patient given 1 tablet of Percocet 5/325 now. Small prescription (#10) of Percocet 5/325 to be used up to every 6 hours as needed for severe pain sent to her pharmacy. She should otherwise use acetaminophen as needed for her pain. Discharge - Discharge Information Problems reviewed: Yes Clinical Impression/Diagnosis: Subconjunctival hemorrhage of left eye, Myelofibrosis Contusion, hip Qualifiers: Encounter type: initial encounter Laterality: right Qualified Code(s): S70.01XA - Contusion of right hip, initial encounter Condition: Stable Disposition: HOME - Additional Discharge Information Prescriptions: Oxycodone HCl/Acetaminophen [Percocet 5-325 mg Tablet] 1 tab PO Q6H PRN #10 tablet MDD 4 tabs PRN Reason: Severe Pain - Follow up/Referral Referrals: Silvestre Jj MD [Staff Physician] - - Patient Discharge Instructions Patient Printed Discharge Instructions: DI for Contusion, DI for Subconjunctival Hemorrhage Additional Instructions: Acetaminophen as needed for mild to moderate pain apply mild pressure to left eye if bleeding occurs followup with eye doctor(Dr Jj) if you have persistent pain or any change in vision contact your physician about today's ER visit and followup as arranged - Post Discharge Activity
[2020-04-30 20:59] VITALS: PULSE 90
== END 2020-04-30 22:38 | disposition home or self-care (01) ==
LOC: FER 18:10
DX: S70.01XA Contusion of right hip, initial encounter (principal); H11.32 Conjunctival hemorrhage, left eye; D75.81 Myelofibrosis
CPT/HCPCS: 72170-TC-FY; 73552-TC-RT-FY; 73564-TC-RT-FY; 99285-25